=== PATIENT | male | born 1940 | race Caucasian/White ===

== ENCOUNTER → 2016-04-03 | Outpatient (CLI) | payer OTHER ==
[~2016-04-03] MED LIST: ASPI1TAB PO; ATOR40TA PO; CARV6.25 PO; DEPA1TAB3 PO; ESCI10TA2 PO; NITR4TASL SL; PLAV75TA PO; TAMS0.4C2 PO
[2016-04-03 07:10] LABS: BASO # 0.1 K/mm3 (0.0-0.2); BASO % 0.9 % (0.0-1.0); EOS # 0.3 K/mm3 (0.0-0.50); EOS % 3.5 % (0.0-3.0); LARGE UNSTAINED CELL # 0.2 K/mm3 (0.0-0.4); LARGE UNSTAINED CELL % 2.6 % (0.0-4.0); LYMPH # 2.8 K/mm3 (1.5-4.5); LYMPH % 30.5 % (24.0-44.0); MEAN CORPUSCULAR HEMOGLOBIN 30.1 pg (27.0-33.0); MEAN CORPUSCULAR VOLUME 86.1 fl (80.0-96.0); MONO # 0.5 K/mm3 (0.0-0.8); MONO % 5.5 % (0.0-5.0); NEUTROPHILS # 5.2 K/mm3 (1.8-7.7); PLATELET COUNT, AUTOMATED 189 k/mm3 (150-450); RED CELL DISTRIBUTION WIDTH 12.4 % (11.5-14.5); WHITE BLOOD COUNT 9.1 K/mm3 (4.0-10.0)
[2016-04-03 07:30] LABS: ALBUMIN 3.7 GM/DL (3.2-5.2); ALBUMIN/GLOBULIN RATIO 1.03 (1.00-1.93); ALKALINE PHOSPHATASE 122 U/L (45-117); ALT/SGPT 38 U/L (12-78); ANION GAP 8 MEQ/L (8-16); AST/SGOT 21 U/L (15-37); BILIRUBIN,TOTAL 0.4 MG/DL (0.2-1.0); BLOOD UREA NITROGEN 16 MG/DL (7-18); CALCIUM LEVEL 9.2 MG/DL (8.8-10.2); CARBON DIOXIDE LEVEL 29 MEQ/L (21-32); CHLORIDE LEVEL 103 MEQ/L (98-107); CHOLESTEROL LEVEL 117 MG/DL (<200); CREATININE FOR GFR 0.92 MG/DL (0.70-1.30); GLOMERULAR FILTRATION RATE > 60.0 (>42); GLUCOSE, FASTING 102 MG/DL (83-110); POTASSIUM SERUM 4.4 MEQ/L (3.5-5.1); SODIUM LEVEL 140 MEQ/L (136-145); TOTAL PROTEIN 7.3 GM/DL (6.4-8.2); TRIGLYCERIDES LEVEL 140 MG/DL (<150)
== END ==
LOC: M LAB 06:22
PROVIDERS: ATTEND Family Medicine
DX: R73.02 Impaired glucose tolerance (oral) (principal); I25.2 Old myocardial infarction

== ENCOUNTER → 2016-07-03 | Outpatient (REF) | payer OTHER ==
[~2016-07-03] MED LIST changes: -PLAV75TA PO; +PLAV75TA38 PO
== END ==
LOC: M LABNEURO 13:01
PROVIDERS: ATTEND Psychiatry & Neurology Neurology
DX: G43.909 Migraine, unspecified, not intractable, without status migrainosus (principal); Z51.81 Encounter for therapeutic drug level monitoring; Z79.899 Other long term (current) drug therapy

== ENCOUNTER → 2016-07-05 | Outpatient (REF) | payer OTHER | LOC: M LABNEURO 13:15 | PROVIDERS: ATTEND Urology | DX: N40.1 Benign prostatic hyperplasia with lower urinary tract symptoms (principal); N52.9 Male erectile dysfunction, unspecified ==

== ENCOUNTER → 2016-07-24 | Outpatient (REF) | payer OTHER ==
[2016-07-24 14:31] LABS: ANION GAP 6 MEQ/L (8-16); BLOOD UREA NITROGEN 16 MG/DL (7-18); CALCIUM LEVEL 8.7 MG/DL (8.8-10.2); CARBON DIOXIDE LEVEL 30 MEQ/L (21-32); CHLORIDE LEVEL 107 MEQ/L (98-107); CHOLESTEROL LEVEL 115 MG/DL (<200); CREATININE FOR GFR 0.93 MG/DL (0.70-1.30); GLOMERULAR FILTRATION RATE > 60.0 (>42); GLUCOSE, FASTING 112 MG/DL (83-110); POTASSIUM SERUM 4.6 MEQ/L (3.5-5.1); SODIUM LEVEL 143 MEQ/L (136-145); TRIGLYCERIDES LEVEL 122 MG/DL (<150)
== END ==
LOC: M LABNEURO 12:56
PROVIDERS: ATTEND Internal Medicine Cardiovascular Disease
DX: E78.5 Hyperlipidemia, unspecified (principal); I51.7 Cardiomegaly; I25.10 Atherosclerotic heart disease of native coronary artery without angina pectoris
CPT/HCPCS: 36415; 80048; 80061; G0463

== ENCOUNTER → 2016-08-16 | Outpatient (CLI) | payer OTHER | LOC: M SMT 08:22 | PROVIDERS: ATTEND Urology | DX: E29.1 Testicular hypofunction (principal) ==

== ENCOUNTER → 2016-10-16 | Outpatient (REF) | payer OTHER ==
[~2016-10-16] MED LIST changes: -ATOR40TA PO; +ATOR40TA75 PO; +PLAV1TAB2 PO; -PLAV75TA38 PO
[2016-10-16 11:56] LABS: ANION GAP 6 MEQ/L (8-16); BLOOD UREA NITROGEN 11 MG/DL (7-18); CALCIUM LEVEL 9.2 MG/DL (8.8-10.2); CARBON DIOXIDE LEVEL 31 MEQ/L (21-32); CHLORIDE LEVEL 106 MEQ/L (98-107); CREATININE FOR GFR 0.84 MG/DL (0.70-1.30); GLOMERULAR FILTRATION RATE > 60.0 (>42); GLUCOSE, FASTING 117 MG/DL (83-110); POTASSIUM SERUM 4.7 MEQ/L (3.5-5.1); SODIUM LEVEL 143 MEQ/L (136-145)
== END ==
LOC: M SFHCLERA 10:09
PROVIDERS: ATTEND Family Medicine
DX: Z95.5 Presence of coronary angioplasty implant and graft (principal); I25.2 Old myocardial infarction; R73.02 Impaired glucose tolerance (oral); I10 Essential (primary) hypertension; R06.83 Snoring; Z79.82 Long term (current) use of aspirin; Z79.84 Long term (current) use of oral hypoglycemic drugs; Z79.899 Other long term (current) drug therapy
CPT/HCPCS: 80048; 83036; G0463

== ENCOUNTER → 2016-11-29 | Outpatient (CLI) | payer OTHER ==
[2016-11-29 13:45] LABS: ALBUMIN 3.4 GM/DL (3.2-5.2); ALKALINE PHOSPHATASE 101 U/L (45-117); ALT/SGPT 30 U/L (12-78); ANION GAP 11 MEQ/L (8-16); AST/SGOT 13 U/L (15-37); BILIRUBIN,TOTAL 0.3 MG/DL (0.2-1.0); BLOOD UREA NITROGEN 15 MG/DL (7-18); CALCIUM LEVEL 8.8 MG/DL (8.8-10.2); CARBON DIOXIDE LEVEL 26 MEQ/L (21-32); CHLORIDE LEVEL 106 MEQ/L (98-107); CREATININE FOR GFR 0.76 MG/DL (0.70-1.30); GLOMERULAR FILTRATION RATE > 60.0 (>42); GLUCOSE, FASTING 116 MG/DL (83-110); POTASSIUM SERUM 4.5 MEQ/L (3.5-5.1); SODIUM LEVEL 143 MEQ/L (136-145); TOTAL PROTEIN 6.8 GM/DL (6.4-8.2)
[2016-11-29 13:46] LABS: BASO # 0.1 K/mm3 (0.0-0.2); EOS # 0.4 K/mm3 (0.0-0.50); EOS % 4.4 % (0.0-3.0); LARGE UNSTAINED CELL # 0.1 K/mm3 (0.0-0.4); LARGE UNSTAINED CELL % 1.6 % (0.0-4.0); LYMPH # 1.9 K/mm3 (1.5-4.5); LYMPH % 23.7 % (24.0-44.0); MEAN CORPUSCULAR HEMOGLOBIN 30.7 pg (27.0-33.0); MEAN CORPUSCULAR HGB CONC 35.4 g/dl (32.0-36.5); MEAN CORPUSCULAR VOLUME 86.9 fl (80.0-96.0); MONO # 0.5 K/mm3 (0.0-0.8); MONO % 6.7 % (0.0-5.0); NEUTROPHILS # 5.1 K/mm3 (1.8-7.7); NEUTROPHILS % 62.5 % (36.0-66.0); PLATELET COUNT, AUTOMATED 189 k/mm3 (150-450); RED CELL DISTRIBUTION WIDTH 12.7 % (11.5-14.5); WHITE BLOOD COUNT 8.1 K/mm3 (4.0-10.0)
== END ==
LOC: M SMT 09:14
PROVIDERS: ATTEND Psychiatry & Neurology Neurology
DX: G43.909 Migraine, unspecified, not intractable, without status migrainosus (principal); N52.9 Male erectile dysfunction, unspecified

== ENCOUNTER → 2016-11-29 | Outpatient (CLI) | payer OTHER | LOC: M SMT 09:11 | PROVIDERS: ATTEND Urology | DX: N52.9 Male erectile dysfunction, unspecified (principal) ==

== ENCOUNTER → 2016-12-22 | Outpatient (CLI) | payer OTHER ==
--- NOTE | 2016-12-22 09:53 | REP ---
MR BRAIN WITHOUT CONTRAST: HISTORY: TIAs. COMPARISON: 08/27/2015 Areas of increased signal intensity on T2-weighted images are present in the periventricular and subcortical white matter. This represents small vessel ischemic disease. There is no intraparenchymal hemorrhage, infarct mass, or midline shift. The ventricular system and cortical sulci are dilated consistent with minimal volume loss. There is no extracerebral collection. Mucosal thickening is present in the maxillary sinuses. IMPRESSION: 1. Small vessel ischemic disease. 2. Minimal volume loss. Signed by Shemar Feng MD 12/22/2016 10:34 A
== END ==
LOC: M PLARAD 07:33
PROVIDERS: ATTEND Psychiatry & Neurology Neurology
DX: G45.9 Transient cerebral ischemic attack, unspecified (principal); I73.9 Peripheral vascular disease, unspecified; M62.81 Muscle weakness (generalized)

== ENCOUNTER → 2017-01-16 | Outpatient (REF) | payer OTHER | LOC: M SFHCLERA 09:31 | PROVIDERS: ATTEND Family Medicine | DX: E11.8 Type 2 diabetes mellitus with unspecified complications (principal); Z23 Encounter for immunization | CPT/HCPCS: 83036; 90662; G0008; G0463 ==

== ENCOUNTER → 2017-06-08 | Outpatient (CLI) | payer MEDICARE ==
[2017-06-12 00:07] LABS: PSA TOTAL 1.2 ng/mL (0.0-4.0); TESTOSTERONE FREE (DIRECT) 4.3 pg/mL (6.6-18.1)
== END ==
LOC: M SMT 14:40
DX: E29.1 Testicular hypofunction (principal); N40.1 Benign prostatic hyperplasia with lower urinary tract symptoms
CPT/HCPCS: 84403

== ENCOUNTER → 2017-07-06 | Outpatient (REF) | payer MEDICARE ==
[2017-07-06 12:53] LABS: ALBUMIN 3.6 GM/DL (3.2-5.2); ALBUMIN/GLOBULIN RATIO 1.03 (1.00-1.93); ALKALINE PHOSPHATASE 95 U/L (45-117); ALT/SGPT 29 U/L (12-78); ANION GAP 9 MEQ/L (8-16); AST/SGOT 16 U/L (7-37); BILIRUBIN,TOTAL 0.4 MG/DL (0.2-1.0); BLOOD UREA NITROGEN 20 MG/DL (7-18); CALCIUM LEVEL 8.7 MG/DL (8.8-10.2); CARBON DIOXIDE LEVEL 24 MEQ/L (21-32); CHLORIDE LEVEL 108 MEQ/L (98-107); CREATININE FOR GFR 0.96 MG/DL (0.70-1.30); GLOMERULAR FILTRATION RATE > 60.0 (>42); GLUCOSE, FASTING 124 MG/DL (70-100); POTASSIUM SERUM 4.7 MEQ/L (3.5-5.1); SODIUM LEVEL 141 MEQ/L (136-145); TOTAL PROTEIN 7.1 GM/DL (6.4-8.2)
[2017-07-06 13:20] LABS: BASO # 0.1 10^3/uL (0.0-0.2); EOS # 0.4 10^3/uL (0.0-0.50); EOS % 3.8 % (0.0-3.0); HEMATOCRIT 44.9 % (42.0-52.0); IMMATURE GRANULOCYTE % 0.3 % (0-3.0); LYMPH # 2.2 10^3/uL (1.5-4.5); LYMPH % 24.2 % (24.0-44.0); MEAN CORPUSCULAR HEMOGLOBIN 29.4 pg (27.0-33.0); MEAN CORPUSCULAR HGB CONC 33.4 g/dl (32.0-36.5); MONO # 0.7 10^3/uL (0.0-0.8); MONO % 7.6 % (0.0-5.0); NEUTROPHILS # 5.8 10^3/uL (1.8-7.7); NEUTROPHILS % 63.1 % (36.0-66.0); PLATELET COUNT, AUTOMATED 227 10^3/uL (150-450); RED CELL DISTRIBUTION WIDTH 12.9 % (11.5-14.5); WHITE BLOOD COUNT 9.2 10^3/uL (4.0-10.0)
== END ==
LOC: M LABNEURO 10:17
DX: G43.909 Migraine, unspecified, not intractable, without status migrainosus (principal)
CPT/HCPCS: 80164

== ENCOUNTER → 2017-08-06 | Outpatient (REF) | payer MEDICARE ==
[2017-08-06 12:42] LABS: ALKALINE PHOSPHATASE 107 U/L (45-117); ALT/SGPT 22 U/L (12-78); ANION GAP 8 MEQ/L (8-16); AST/SGOT 15 U/L (7-37); BILIRUBIN,TOTAL 0.4 MG/DL (0.2-1.0); BLOOD UREA NITROGEN 9 MG/DL (7-18); CALCIUM LEVEL 8.8 MG/DL (8.8-10.2); CARBON DIOXIDE LEVEL 28 MEQ/L (21-32); CHLORIDE LEVEL 107 MEQ/L (98-107); CHOLESTEROL LEVEL 119 MG/DL (<200); CREATININE FOR GFR 0.82 MG/DL (0.70-1.30); GLOMERULAR FILTRATION RATE > 60.0 (>42); GLUCOSE, FASTING 122 MG/DL (70-100); HDL CHOLESTEROL 44 MG/DL (>40); LDL CHOLESTEROL 54.2 MG/DL (<100); POTASSIUM SERUM 4.6 MEQ/L (3.5-5.1); SODIUM LEVEL 143 MEQ/L (136-145); TRIGLYCERIDES LEVEL 104 MG/DL (<150)
[2017-08-06 12:43] LABS: ALBUMIN 3.4 GM/DL (3.2-5.2); ALBUMIN/GLOBULIN RATIO 0.89 (1.00-1.93); CHOLESTEROL RISK RATIO 2.704 (<5); NON-HDL-C 75 MG/DL; TOTAL PROTEIN 7.2 GM/DL (6.4-8.2)
[2017-08-06 13:42] LABS: ESTIMATED AVERAGE GLUCOSE 143 MG/DL (60-110); HEMOGLOBIN A1c 6.6 %
== END ==
LOC: M SFHCLERA 08:56
DX: E11.8 Type 2 diabetes mellitus with unspecified complications (principal)
CPT/HCPCS: 80053

== ENCOUNTER → 2017-08-08 | Outpatient (REF) | payer MEDICARE ==
[2017-08-08 19:11] LABS: CREATININE, URINE 36.2 MG/DL; MALB URINE SIEMENS < 5.0 MG/L; MAU/CREAT RATIO 13.8 MCG/MG (0.0-30.0)
== END ==
LOC: M SFHCLERA 13:40
DX: E11.8 Type 2 diabetes mellitus with unspecified complications (principal)
CPT/HCPCS: 82043

== ENCOUNTER → 2017-08-17 | Outpatient (CLI) | payer MEDICARE | LOC: M PLARAD 08:03 | DX: M54.40 Lumbago with sciatica, unspecified side (principal) | CPT/HCPCS: 72148 ==

== ENCOUNTER 2017-09-11 07:20 | Outpatient (RCR) | payer MEDICARE | END 2017-09-22 | LOC: M PT 07:20 | DX: Z51.89 Encounter for other specified aftercare (principal); M54.41 Lumbago with sciatica, right side | CPT/HCPCS: 97110 ==

== ENCOUNTER 2017-09-25 07:46 | Outpatient (RCR) | payer MEDICARE | END 2017-10-23 | LOC: M PT 07:46 | DX: Z51.89 Encounter for other specified aftercare (principal); M54.40 Lumbago with sciatica, unspecified side; M48.061 Spinal stenosis, lumbar region without neurogenic claudication; M43.16 Spondylolisthesis, lumbar region; M99.83 Other biomechanical lesions of lumbar region; M51.36 Other intervertebral disc degeneration, lumbar region | CPT/HCPCS: 97110 ==

== ENCOUNTER → 2017-09-25 | Outpatient (CLI) | payer MEDICARE ==
[2017-09-28 00:09] LABS: TESTOSTERONE FREE (DIRECT) 9.2 pg/mL (6.6-18.1)
== END ==
LOC: M LAB 08:40
DX: E29.1 Testicular hypofunction (principal)
CPT/HCPCS: 84403

== ENCOUNTER 2017-10-26 07:54 | Outpatient (RCR) | payer MEDICARE | END 2017-11-23 | LOC: M PT 07:54 | DX: Z51.89 Encounter for other specified aftercare (principal); M54.41 Lumbago with sciatica, right side; M48.061 Spinal stenosis, lumbar region without neurogenic claudication; M43.16 Spondylolisthesis, lumbar region; M99.83 Other biomechanical lesions of lumbar region; M51.36 Other intervertebral disc degeneration, lumbar region | CPT/HCPCS: 97110 ==

== ENCOUNTER 2017-11-28 08:38 | Outpatient (RCR) | payer MEDICARE | END 2017-12-23 | LOC: M PT 08:38 | DX: Z47.89 Encounter for other orthopedic aftercare (principal); M54.41 Lumbago with sciatica, right side; M48.061 Spinal stenosis, lumbar region without neurogenic claudication; M43.16 Spondylolisthesis, lumbar region; M99.83 Other biomechanical lesions of lumbar region; M51.36 Other intervertebral disc degeneration, lumbar region | CPT/HCPCS: 97110 ==

== ENCOUNTER 2017-12-25 14:21 | Outpatient (RCR) | payer MEDICARE | END 2018-01-23 | LOC: M PT 14:21 | DX: Z47.89 Encounter for other orthopedic aftercare (principal); M54.41 Lumbago with sciatica, right side; M48.061 Spinal stenosis, lumbar region without neurogenic claudication; M43.16 Spondylolisthesis, lumbar region; M51.36 Other intervertebral disc degeneration, lumbar region; M99.83 Other biomechanical lesions of lumbar region | CPT/HCPCS: 97110 ==

== ENCOUNTER 2018-01-24 09:16 | Outpatient (RCR) | payer MEDICARE | END 2018-02-22 | LOC: M PT 01-31 14:57 | DX: M54.9 Dorsalgia, unspecified (principal) | CPT/HCPCS: 97110 ==

== ENCOUNTER 2018-02-12 12:23 | Outpatient (REF) | payer MEDICARE ==
[2018-03-07 14:05] LABS: ESTIMATED AVERAGE GLUCOSE 166 MG/DL (60-110); HEMOGLOBIN A1c 7.4 %
== END 2018-03-07 ==
LOC: M SFHCLERA 12:23 → M LABNEURO 03-07 10:22
DX: E11.8 Type 2 diabetes mellitus with unspecified complications (principal); Z53.8 Procedure and treatment not carried out for other reasons
CPT/HCPCS: 83036

== ENCOUNTER 2018-03-14 10:49 | Outpatient (RCR) | payer MEDICARE | END 2018-03-25 | LOC: M PT 10:49 | PROVIDERS: ATTEND Physical Medicine & Rehabilitation | DX: M54.9 Dorsalgia, unspecified (principal) ==

== ENCOUNTER → 2018-03-22 | Outpatient (CLI) | payer MEDICARE | LOC: M PLARAD 08:07 | PROVIDERS: ATTEND Psychiatry & Neurology Neurology | DX: G43.401 Hemiplegic migraine, not intractable, with status migrainosus (principal); I63.9 Cerebral infarction, unspecified; Z53.9 Procedure and treatment not carried out, unspecified reason ==

== ENCOUNTER → 2018-04-05 | Outpatient (REF) | payer MEDICARE ==
[2018-04-05 13:39] LABS: HEMATOCRIT 42.5 % (42.0-52.0); HEMOGLOBIN 14.5 g/dl (13.5-17.5); MEAN CORPUSCULAR HEMOGLOBIN 29.7 pg (27.0-33.0); MEAN CORPUSCULAR HGB CONC 34.1 g/dl (32.0-36.5); MEAN CORPUSCULAR VOLUME 86.9 fl (80.0-96.0); PLATELET COUNT, AUTOMATED 185 10^3/uL (150-450); RED BLOOD COUNT 4.89 10^6/uL (4.30-6.10); WHITE BLOOD COUNT 8.9 10^3/uL (4.0-10.0)
[2018-04-05 13:42] LABS: ALBUMIN 3.1 GM/DL (3.2-5.2); ALT/SGPT 17 U/L (12-78); BILIRUBIN,TOTAL 0.4 MG/DL (0.2-1.0); BLOOD UREA NITROGEN 17 MG/DL (7-18); CALCIUM LEVEL 8.3 MG/DL (8.8-10.2); CARBON DIOXIDE LEVEL 23 MEQ/L (21-32); CHLORIDE LEVEL 105 MEQ/L (98-107); CREATININE FOR GFR 0.94 MG/DL (0.70-1.30); GLOMERULAR FILTRATION RATE > 60.0 (>42); GLUCOSE, FASTING 188 MG/DL (70-100); POTASSIUM SERUM 4.4 MEQ/L (3.5-5.1); SODIUM LEVEL 140 MEQ/L (136-145); TOTAL PROTEIN 6.3 GM/DL (6.4-8.2)
[2018-04-07 00:06] LABS: TESTOSTERONE FREE (DIRECT) 6.3 pg/mL (6.6-18.1)
== END ==
LOC: M LABNEURO 08:55
PROVIDERS: ATTEND Nurse Practitioner Women's Health
DX: E29.1 Testicular hypofunction (principal); Z12.5 Encounter for screening for malignant neoplasm of prostate
CPT/HCPCS: 36415; 80053; 84402; 84403; 85027; G0103

== ENCOUNTER → 2018-04-11 | Outpatient (CLI) | payer MEDICARE ==
--- NOTE | 2018-04-12 13:20 | DEXA ---
AP SPINE L1 - L4 1.908 5.8 6.1 LT FEMUR TOTAL 1.236 1.8 1.9 LT NECK 1.094 0.4 1.6 RT FEMUR TOTAL 1.194 1.5 1.6 RT NECK 1.095 0.4 1.6 TOTAL BODY TOTAL OTHER COMMENTS: Normal bone densitometry of the spine and hips. FOLLOW-UP: Recommendation for the next bone density exam: 2 years. PRUDENCIO
== END ==
LOC: M WHC 09:10
PROVIDERS: ATTEND Physician Assistant
DX: M51.36 Other intervertebral disc degeneration, lumbar region (principal); M81.0 Age-related osteoporosis without current pathological fracture; M99.83 Other biomechanical lesions of lumbar region; M43.16 Spondylolisthesis, lumbar region; M48.061 Spinal stenosis, lumbar region without neurogenic claudication; M54.16 Radiculopathy, lumbar region

== ENCOUNTER 2018-04-17 14:30 | Outpatient (RCR) | payer MEDICARE | END 2018-04-25 | LOC: M PT 14:30 | PROVIDERS: ATTEND Physical Medicine & Rehabilitation | DX: M54.5 Low back pain (principal); M48.07 Spinal stenosis, lumbosacral region ==

== ENCOUNTER → 2018-05-01 | Outpatient (CLI) | payer MEDICARE ==
--- NOTE | 2018-05-01 11:18 | REP ---
BILATERAL KNEES, TEN VIEWS: HISTORY: Knee pain. RIGHT KNEE: There is no acute fracture or dislocation. There is marked narrowing of the medial knee joint space and minimal narrowing of the lateral knee joint space and patellofemoral joint space. Osteophytes are present on the tibia and patella. IMPRESSION: Degenerative change as described above. LEFT KNEE: There is marked narrowing of the medial knee joint space and minimal narrowing of the lateral knee joint space and patellofemoral joint space. Osteophytes are present on the tibia and patella. IMPRESSION: Degenerative change as described above. Electronically Signed by Shemar Feng MD 05/01/2018 11:19 A
== END ==
LOC: M RAD 09:13
PROVIDERS: ATTEND Nurse Practitioner Family
DX: M25.561 Pain in right knee (principal)

== ENCOUNTER 2018-05-16 08:00 | Outpatient (RCR) | payer MEDICARE | END 2018-05-23 | LOC: M PT 08:00 | PROVIDERS: ATTEND Physical Medicine & Rehabilitation | DX: M17.0 Bilateral primary osteoarthritis of knee (principal); M54.5 Low back pain ==

== ENCOUNTER → 2018-07-17 | Outpatient (REF) | payer MEDICARE ==
[~2018-07-17] MED LIST changes: -ASPI1TAB PO; +ASPI81TA26 PO
[2018-07-17 12:09] LABS: ALBUMIN 3.3 GM/DL (3.2-5.2); ALT/SGPT 31 U/L (12-78); BILIRUBIN,TOTAL 0.5 MG/DL (0.2-1.0); BLOOD UREA NITROGEN 18 MG/DL (7-18); CALCIUM LEVEL 8.6 MG/DL (8.8-10.2); CARBON DIOXIDE LEVEL 26 MEQ/L (21-32); CHLORIDE LEVEL 105 MEQ/L (98-107); CHOLESTEROL LEVEL 115 MG/DL (<200); CREATININE FOR GFR 0.79 MG/DL (0.70-1.30); GLOMERULAR FILTRATION RATE > 60.0 (>42); GLUCOSE, FASTING 120 MG/DL (70-100); HDL CHOLESTEROL 46 MG/DL (>40); LDL CHOLESTEROL 42 MG/DL (<100); NON-HDL-C 69 MG/DL; POTASSIUM SERUM 4.7 MEQ/L (3.5-5.1); SODIUM LEVEL 141 MEQ/L (136-145); TOTAL PROTEIN 6.8 GM/DL (6.4-8.2); TRIGLYCERIDES LEVEL 133 MG/DL (<150)
[2018-07-17 12:33] LABS: HEMOGLOBIN A1c 6.9 %
== END ==
LOC: M SFHCLERA 08:55
PROVIDERS: ATTEND Family Medicine
DX: E11.8 Type 2 diabetes mellitus with unspecified complications (principal)

== ENCOUNTER → 2018-07-17 | Outpatient (CLI) | payer MEDICARE ==
[2018-07-17 11:23] LABS: BASO # 0.1 10^3/uL (0.0-0.2); BASO % 0.8 % (0.0-1.0); EOS # 0.2 10^3/uL (0.0-0.50); EOS % 3.2 % (0.0-3.0); HEMATOCRIT 43.8 % (42.0-52.0); HEMOGLOBIN 14.6 g/dl (13.5-17.5); LYMPH # 1.9 10^3/uL (1.5-4.5); LYMPH % 26.1 % (24.0-44.0); MEAN CORPUSCULAR HEMOGLOBIN 29.5 pg (27.0-33.0); MEAN CORPUSCULAR HGB CONC 33.3 g/dl (32.0-36.5); MEAN CORPUSCULAR VOLUME 88.5 fl (80.0-96.0); MONO # 0.6 10^3/uL (0.0-0.8); MONO % 8.4 % (0.0-5.0); NEUTROPHILS # 4.5 10^3/uL (1.8-7.7); NEUTROPHILS % 61.4 % (36.0-66.0); PLATELET COUNT, AUTOMATED 194 10^3/uL (150-450); RED BLOOD COUNT 4.95 10^6/uL (4.30-6.10); WHITE BLOOD COUNT 7.4 10^3/uL (4.0-10.0)
[2018-07-17 12:21] LABS: ALBUMIN 3.3 GM/DL (3.2-5.2); ALT/SGPT 30 U/L (12-78); BILIRUBIN,TOTAL 0.4 MG/DL (0.2-1.0); BLOOD UREA NITROGEN 17 MG/DL (7-18); CALCIUM LEVEL 8.6 MG/DL (8.8-10.2); CARBON DIOXIDE LEVEL 27 MEQ/L (21-32); CHLORIDE LEVEL 105 MEQ/L (98-107); CREATININE FOR GFR 0.78 MG/DL (0.70-1.30); GLOMERULAR FILTRATION RATE > 60.0 (>42); GLUCOSE, FASTING 117 MG/DL (70-100); POTASSIUM SERUM 4.8 MEQ/L (3.5-5.1); SODIUM LEVEL 140 MEQ/L (136-145); TOTAL PROTEIN 6.8 GM/DL (6.4-8.2); VALPROIC ACID (DEPAKOTE) 48.1 UG/ML (50.0-100.0)
== END ==
LOC: M LRY 09:17
PROVIDERS: ATTEND Psychiatry & Neurology Neurology
DX: E11.8 Type 2 diabetes mellitus with unspecified complications (principal); R51 Headache; Z51.81 Encounter for therapeutic drug level monitoring; Z79.899 Other long term (current) drug therapy
CPT/HCPCS: 36415; 80053; 80061; 80164; 83036; 85025; G0463

== ENCOUNTER → 2018-10-04 | Outpatient (REF) | payer MEDICARE ==
[2018-10-04 14:05] LABS: HEMATOCRIT 43.1 % (42.0-52.0); HEMOGLOBIN 14.2 g/dl (13.5-17.5)
[2018-10-04 14:17] LABS: ALBUMIN 3.3 GM/DL (3.2-5.2); BILIRUBIN,DIRECT 0.1 MG/DL (0.0-0.2); BILIRUBIN,TOTAL 0.5 MG/DL (0.2-1.0); TOTAL PROTEIN 6.7 GM/DL (6.4-8.2)
== END ==
LOC: M LABNEURO 10:19
PROVIDERS: ATTEND Urology
DX: E29.1 Testicular hypofunction (principal); Z12.5 Encounter for screening for malignant neoplasm of prostate
CPT/HCPCS: 36415; 80076; 84403; 85014; 85018; G0103

== ENCOUNTER → 2018-10-28 | Outpatient (CLI) | payer MEDICARE ==
--- NOTE | 2018-10-29 06:57 | REP ---
BILATERAL LOWER EXTREMITY DUPLEX DOPPLER ARTERIAL ULTRASOUND: Real-time ultrasound evaluation and duplex Doppler interrogation of bilateral lower extremity arterial systems is performed. I do not see evidence of hemodynamically significant stenosis of bilateral lower extremity arterial systems. Moderate calcific plaquing is seen diffusely bilaterally. The study is somewhat limited due to extensive arterial calcifications which limits evaluation of arterial lumen. There are diffusely biphasic wave forms bilaterally. RIGHT PSV LEFT PSV Common femoral artery 127 cm/s 114 cm/s Profunda 104 95 Proximal SFA 59 90 Mid SFA 98 102 Distal SFA 55 79 Popliteal 55 97 Proximal KARMA 34 82 Tibioperoneal trunk 62 85 Proximal CAR PARKER 18 60 Distal CAR PARKER 33 98 Distal KARMA 62 109 IMPRESSION: Significant moderate degree of calcific plaque diffusely bilaterally without definite significant stenosis. Electronically Signed by Lencho Bellamy MD 10/29/2018 07:12 P
== END ==
LOC: M RAD 08:31
PROVIDERS: ATTEND Surgery Vascular Surgery
DX: I70.213 Atherosclerosis of native arteries of extremities with intermittent claudication, bilateral legs (principal)

== ENCOUNTER → 2018-12-23 | Outpatient (CLI) | payer MEDICARE | LOC: M SMT 09:51 | PROVIDERS: ATTEND Urology | DX: E29.1 Testicular hypofunction (principal) ==

== ENCOUNTER → 2019-01-06 | Outpatient (CLI) | payer MEDICARE ==
[2019-01-06 18:13] LABS: BASO # 0.1 10^3/uL (0.0-0.2); BASO % 0.8 % (0.0-1.0); EOS # 0.3 10^3/uL (0.0-0.5); EOS % 3.5 % (0.0-3.0); HEMATOCRIT 45.3 % (42.0-52.0); HEMOGLOBIN 14.7 g/dl (13.5-17.5); LYMPH # 2.1 10^3/uL (1.5-5.0); LYMPH % 25.1 % (24.0-44.0); MEAN CORPUSCULAR HEMOGLOBIN 29.8 pg (27.0-33.0); MEAN CORPUSCULAR HGB CONC 32.5 g/dl (32.0-36.5); MEAN CORPUSCULAR VOLUME 91.7 fl (80.0-96.0); MONO # 0.8 10^3/uL (0.0-0.8); MONO % 9.6 % (0.0-5.0); NEUTROPHILS # 5.2 10^3/uL (1.5-8.5); NEUTROPHILS % 60.8 % (36.0-66.0); PLATELET COUNT, AUTOMATED 194 10^3/uL (150-450); RED BLOOD COUNT 4.94 10^6/uL (4.30-6.10); WHITE BLOOD COUNT 8.5 10^3/uL (4.0-10.0)
[2019-01-06 18:44] LABS: ALBUMIN 3.4 GM/DL (3.2-5.2); ALT/SGPT 22 U/L (12-78); BILIRUBIN,TOTAL 0.4 MG/DL (0.2-1.0); BLOOD UREA NITROGEN 14 MG/DL (7-18); CALCIUM LEVEL 8.8 MG/DL (8.8-10.2); CARBON DIOXIDE LEVEL 30 MEQ/L (21-32); CHLORIDE LEVEL 105 MEQ/L (98-107); GLOMERULAR FILTRATION RATE > 60.0 (>42); GLUCOSE, FASTING 99 MG/DL (70-100); POTASSIUM SERUM 5.1 MEQ/L (3.5-5.1); SODIUM LEVEL 139 MEQ/L (136-145); TOTAL PROTEIN 6.7 GM/DL (6.4-8.2)
== END ==
LOC: M SMT 13:00
PROVIDERS: ATTEND Psychiatry & Neurology Neurology
DX: G43.909 Migraine, unspecified, not intractable, without status migrainosus (principal)

== ENCOUNTER → 2019-01-09 | Outpatient (REF) | payer MEDICARE ==
[2019-01-09 12:07] LABS: HEMATOCRIT 47.1 % (42.0-52.0); HEMOGLOBIN 15.2 g/dl (13.5-17.5); MEAN CORPUSCULAR HEMOGLOBIN 29.6 pg (27.0-33.0); MEAN CORPUSCULAR HGB CONC 32.3 g/dl (32.0-36.5); MEAN CORPUSCULAR VOLUME 91.6 fl (80.0-96.0); PLATELET COUNT, AUTOMATED 205 10^3/uL (150-450); RED BLOOD COUNT 5.14 10^6/uL (4.30-6.10)
[2019-01-09 12:46] LABS: ALBUMIN 3.5 GM/DL (3.2-5.2); ALT/SGPT 25 U/L (12-78); BILIRUBIN,TOTAL 0.4 MG/DL (0.2-1.0); BLOOD UREA NITROGEN 17 MG/DL (7-18); CALCIUM LEVEL 9.2 MG/DL (8.8-10.2); CARBON DIOXIDE LEVEL 32 MEQ/L (21-32); CHLORIDE LEVEL 107 MEQ/L (98-107); CHOLESTEROL LEVEL 128 MG/DL (<200); CREATININE FOR GFR 0.97 MG/DL (0.70-1.30); GLOMERULAR FILTRATION RATE > 60.0 (>42); GLUCOSE, FASTING 103 MG/DL (70-100); HDL CHOLESTEROL 50 MG/DL (>40); LDL CHOLESTEROL 47 MG/DL (<100); NON-HDL-C 78 MG/DL; POTASSIUM SERUM 5.3 MEQ/L (3.5-5.1); SODIUM LEVEL 143 MEQ/L (136-145); TOTAL PROTEIN 7.2 GM/DL (6.4-8.2); TRIGLYCERIDES LEVEL 156 MG/DL (<150)
== END ==
LOC: M SFHCLERA 08:42
PROVIDERS: ATTEND Family Medicine
DX: E11.8 Type 2 diabetes mellitus with unspecified complications (principal)
CPT/HCPCS: 80053; 80061; 83036; 84443; 85027; 90472; 90682; 90715; G0008; G0463

== ENCOUNTER 2019-02-17 09:20 | Outpatient (RCR) | payer MEDICARE | END 2019-02-22 | LOC: M PT 09:20 | PROVIDERS: ATTEND Physical Medicine & Rehabilitation | DX: Z47.89 Encounter for other orthopedic aftercare (principal) ==

== ENCOUNTER 2019-03-17 09:14 | Outpatient (RCR) | payer MEDICARE | END 2019-03-25 | LOC: M PT 09:14 | PROVIDERS: ATTEND Physical Medicine & Rehabilitation | DX: M25.561 Pain in right knee (principal); M25.562 Pain in left knee ==

== ENCOUNTER → 2019-03-24 | Outpatient (CLI) | payer MEDICARE ==
--- NOTE | 2019-03-24 08:57 | REP ---
CT brain: 03/24/2019. Indication: Facial numbness. Stroke. Comparison: 03/27/2018. Technique: Unenhanced axial CT images of the brain were obtained from skull base to vertex. Findings: There is no acute intracranial hemorrhage, acute cortical infarction, mass effect or hydrocephalous. Diffuse volume loss, intracranial atherosclerotic disease and patchy cerebral hemisphere white matter hypoattenuation are noted. The mastoid air cells are clear. Minimal periosteal mucosal thickening is noted within the ethmoid and maxillary sinuses. Impression: No acute intracranial process. Volume loss and sequelae of chronic microangiopathic ischemic disease. Electronically Signed by Jose Mosley DO 03/24/2019 08:48 A
== END ==
LOC: M RAD 07:31
PROVIDERS: ATTEND Physician Assistant
DX: I25.9 Chronic ischemic heart disease, unspecified (principal); R20.0 Anesthesia of skin

== ENCOUNTER → 2019-04-08 | Outpatient (REF) | payer MEDICARE ==
[2019-04-08 12:06] LABS: BLOOD UREA NITROGEN 18 MG/DL (7-18); CALCIUM LEVEL 8.9 MG/DL (8.8-10.2); CARBON DIOXIDE LEVEL 25 MEQ/L (21-32); CHLORIDE LEVEL 108 MEQ/L (98-107); CREATININE FOR GFR 0.98 MG/DL (0.70-1.30); GLOMERULAR FILTRATION RATE > 60.0 (>42); GLUCOSE, FASTING 109 MG/DL (70-100); POTASSIUM SERUM 4.8 MEQ/L (3.5-5.1); SODIUM LEVEL 140 MEQ/L (136-145)
[2019-04-08 14:42] LABS: HEMOGLOBIN A1c 6.9 %
== END ==
LOC: M SFHCLERA 08:45
PROVIDERS: ATTEND Family Medicine
DX: E11.8 Type 2 diabetes mellitus with unspecified complications (principal)
CPT/HCPCS: 80048; 83036; G0463

== ENCOUNTER 2019-05-14 10:14 | Outpatient (RCR) | payer MEDICARE | END 2019-05-24 | LOC: M PT 10:14 | PROVIDERS: ATTEND Nurse Practitioner Family | DX: M25.561 Pain in right knee (principal); M25.562 Pain in left knee; M54.5 Low back pain ==

== ENCOUNTER → 2019-08-12 | Outpatient (REF) | payer OTHER ==
[2019-08-12 13:42] LABS: BASO # 0.1 10^3/uL (0.0-0.2); EOS # 0.3 10^3/uL (0.0-0.5); HEMATOCRIT 43.2 % (42.0-52.0); LYMPH # 2.1 10^3/uL (1.5-5.0); LYMPH % 24.9 % (24.0-44.0); MEAN CORPUSCULAR HEMOGLOBIN 28.1 pg (27.0-33.0); MEAN CORPUSCULAR HGB CONC 32.4 g/dl (32.0-36.5); MEAN CORPUSCULAR VOLUME 86.7 fl (80.0-96.0); MONO # 0.7 10^3/uL (0.0-0.8); MONO % 8.9 % (0.0-5.0); NEUTROPHILS # 5.1 10^3/uL (1.5-8.5); PLATELET COUNT, AUTOMATED 208 10^3/uL (150-450); RED BLOOD COUNT 4.98 10^6/uL (4.30-6.10); WHITE BLOOD COUNT 8.3 10^3/uL (4.0-10.0)
[2019-08-12 14:17] LABS: BLOOD UREA NITROGEN 17 MG/DL (7-18); CALCIUM LEVEL 8.9 MG/DL (8.8-10.2); CARBON DIOXIDE LEVEL 28 MEQ/L (21-32); CHLORIDE LEVEL 107 MEQ/L (98-107); CHOLESTEROL LEVEL 145 MG/DL (<200); CHOLESTEROL RISK RATIO 2.788 (<5); CREATININE FOR GFR 0.92 MG/DL (0.70-1.30); GLOMERULAR FILTRATION RATE > 60.0 (>42); GLUCOSE, FASTING 113 MG/DL (70-100); HDL CHOLESTEROL 52 MG/DL (>40); LDL CHOLESTEROL 61 MG/DL (<100); NON-HDL-C 93 MG/DL; POTASSIUM SERUM 4.9 MEQ/L (3.5-5.1); SODIUM LEVEL 141 MEQ/L (136-145); TRIGLYCERIDES LEVEL 159 MG/DL (<150)
[2019-08-12 16:11] LABS: HEMOGLOBIN A1c 7.3 %
== END ==
LOC: M SFHCLERA 09:47
PROVIDERS: ATTEND Family Medicine
DX: E11.8 Type 2 diabetes mellitus with unspecified complications (principal); E78.5 Hyperlipidemia, unspecified
CPT/HCPCS: 36415; 80048; 80061; 83036; 85025; G0463

== ENCOUNTER → 2019-12-02 | Outpatient (REF) | payer OTHER ==
[2019-12-02 19:08] LABS: BASO # 0.1 10^3/uL (0.0-0.2); BASO % 1.2 % (0.0-1.0); EOS # 0.3 10^3/uL (0.0-0.5); EOS % 4.5 % (0.0-3.0); HEMATOCRIT 43.4 % (42.0-52.0); HEMOGLOBIN 14.4 g/dl (13.5-17.5); LYMPH # 1.8 10^3/uL (1.5-5.0); LYMPH % 23.9 % (24.0-44.0); MEAN CORPUSCULAR HGB CONC 33.2 g/dl (32.0-36.5); MEAN CORPUSCULAR VOLUME 87.5 fl (80.0-96.0); MONO # 0.7 10^3/uL (0.0-0.8); MONO % 8.8 % (0.0-5.0); NEUTROPHILS # 4.6 10^3/uL (1.5-8.5); NEUTROPHILS % 61.1 % (36.0-66.0); PLATELET COUNT, AUTOMATED 205 10^3/uL (150-450); RED BLOOD COUNT 4.96 10^6/uL (4.30-6.10); WHITE BLOOD COUNT 7.5 10^3/uL (4.0-10.0)
[2019-12-02 19:40] LABS: BLOOD UREA NITROGEN 18 MG/DL (7-18); CALCIUM LEVEL 8.6 MG/DL (8.8-10.2); CARBON DIOXIDE LEVEL 29 MEQ/L (21-32); CHLORIDE LEVEL 102 MEQ/L (98-107); CREATININE FOR GFR 1.02 MG/DL (0.70-1.30); GLOMERULAR FILTRATION RATE > 60.0 (>42); GLUCOSE, FASTING 156 MG/DL (70-100); SODIUM LEVEL 138 MEQ/L (136-145)
[2019-12-02 19:44] LABS: CREATININE, URINE 33.2 MG/DL; CREATININE,RANDOM URINE 33.2 MG/DL; MALB URINE SIEMENS < 5.0 MG/L
[2019-12-02 20:29] LABS: HEMOGLOBIN A1c 7.1 %
== END ==
LOC: M SFHCLERA 18:28
PROVIDERS: ATTEND Family Medicine
DX: E11.9 Type 2 diabetes mellitus without complications (principal)

== ENCOUNTER → 2019-12-02 | Outpatient (REF) | payer OTHER | LOC: M SMT 18:24 | PROVIDERS: ATTEND Urology | DX: E29.1 Testicular hypofunction (principal); Z12.5 Encounter for screening for malignant neoplasm of prostate; Z79.899 Other long term (current) drug therapy | CPT/HCPCS: 36415; 80048; 82043; 82570; 83036; 84403; 85018; 85025; G0103 ==

== ENCOUNTER → 2020-01-28 | Outpatient (CLI) | payer OTHER | LOC: M PLALAB 09:05 | PROVIDERS: ATTEND Urology | DX: E29.1 Testicular hypofunction (principal) ==

== ENCOUNTER → 2020-02-05 | Outpatient (REF) | payer OTHER | LOC: M LABSMT 11:31 | PROVIDERS: ATTEND Urology | DX: E29.1 Testicular hypofunction (principal) ==

== ENCOUNTER → 2020-03-30 | Outpatient (CLI) | payer OTHER ==
[2020-03-30 13:35] LABS: BASO # 0.1 10^3/uL (0.0-0.2); EOS # 0.3 10^3/uL (0.0-0.5); EOS % 3.4 % (0.0-3.0); HEMATOCRIT 45.2 % (42.0-52.0); HEMOGLOBIN 14.2 g/dl (13.5-17.5); LYMPH # 1.9 10^3/uL (1.5-5.0); LYMPH % 22.6 % (24.0-44.0); MEAN CORPUSCULAR HGB CONC 31.4 g/dl (32.0-36.5); MONO # 0.8 10^3/uL (0.0-0.8); MONO % 9.5 % (0.0-5.0); NEUTROPHILS # 5.2 10^3/uL (1.5-8.5); NEUTROPHILS % 63.1 % (36.0-66.0); PLATELET COUNT, AUTOMATED 215 10^3/uL (150-450); RED BLOOD COUNT 5.08 10^6/uL (4.30-6.10); WHITE BLOOD COUNT 8.2 10^3/uL (4.0-10.0)
[2020-03-30 13:59] LABS: ALBUMIN 3.5 GM/DL (3.2-5.2); ALT/SGPT 29 U/L (12-78); BILIRUBIN,TOTAL 0.3 MG/DL (0.2-1.0); BLOOD UREA NITROGEN 10 MG/DL (7-18); CALCIUM LEVEL 8.9 MG/DL (8.8-10.2); CARBON DIOXIDE LEVEL 31 MEQ/L (21-32); CHLORIDE LEVEL 104 MEQ/L (98-107); CREATININE FOR GFR 1.07 MG/DL (0.70-1.30); GLOMERULAR FILTRATION RATE > 60.0 (>42); GLUCOSE, FASTING 196 MG/DL (70-100); POTASSIUM SERUM 4.9 MEQ/L (3.5-5.1); SODIUM LEVEL 140 MEQ/L (136-145); TOTAL PROTEIN 6.6 GM/DL (6.4-8.2); VALPROIC ACID (DEPAKOTE) 56.5 UG/ML (50.0-100.0)
== END ==
LOC: M PLALAB 10:13
PROVIDERS: ATTEND Psychiatry & Neurology Neurology
DX: G43.909 Migraine, unspecified, not intractable, without status migrainosus (principal)

== ENCOUNTER → 2020-04-21 | Outpatient (CLI) | payer MEDICARE, OTHER ==
[~2020-04-21] MED LIST changes: +ESCI10TA16 PO; -ESCI10TA2 PO
[2020-04-21 13:35] LABS: BLOOD UREA NITROGEN 11 MG/DL (7-18); CREATININE FOR GFR 1.02 MG/DL (0.70-1.30); GLOMERULAR FILTRATION RATE > 60.0 (>42)
== END ==
LOC: M LAB 12:17
PROVIDERS: ATTEND Student in an Organized Health Care Education/Training Program
DX: Z01.812 Encounter for preprocedural laboratory examination (principal); E11.9 Type 2 diabetes mellitus without complications; I10 Essential (primary) hypertension

== ENCOUNTER → 2020-04-26 | Outpatient (CLI) | payer MEDICARE ==
[~2020-04-26] MED LIST changes: +ISOVUE-370 76% 100ML VIAL As Ordered ONE
--- NOTE | 2020-04-26 14:44 | REPVR ---
PROCEDURE INFORMATION: Exam: CT Lumbar Spine With Contrast Exam date and time: 04/26/2020 2:22 PM Age: 80 years old Clinical indication: Low back pain; Prior surgery; Surgery date: 6+ months; Surgery type: Lami in 2011; Additional info: Radiculopathy, post lami TECHNIQUE: Imaging protocol: Computed tomography images of the lumbar spine with intravenous contrast. Radiation optimization: All CT scans at this facility use at least one of these dose optimization techniques: automated exposure control; mA and/or kV adjustment per patient size (includes targeted exams where dose is matched to clinical indication); or iterative reconstruction. Contrast material: ISOVUE 370; Contrast volume: 100 ml; Contrast route: INTRAVENOUS (IV); COMPARISON: MRI-Spine, L.S. without con 08/17/2017 8:47 AM FINDINGS: Vertebrae: No acute fracture. Stable grade 1 retrolisthesis at L1-L2 through L3-L4 and anterolisthesis of L5 on S1. No bony destructive lesions. Discs/Spinal canal/Neural foramina: There is disc height loss with multiple vacuum disc. There is calcification in T11-T12 disc space. There are endplate degenerative changes. There are marginal osteophytes, disc bulges, and facet degenerative changes. This produces spinal stenosis at T11-T12 the L1-L2, L2-L3, and L4-L5 which is likely mild and similar to findings on prior MRI. There are postoperative changes at L3-L4 with laminectomy, paraspinal soft tissue changes, and fusion of L3 and L4 vertebral bodies. There is lumbar neural foraminal narrowing is difficult to quantitate with CT and also associated with patient's larger body habitus. Findings are likely similar to prior MRI. Sacrum/coccyx: There are bridging enthesophytes anterior sacroiliac joints. Kidneys and ureters: Bilateral visualized kidneys appear unremarkable with hydronephrosis. Vasculature: Atherosclerotic change in aorta without aneurysm. Soft tissues: Unremarkable. IMPRESSION: Degenerative and postsurgical described. Electronically signed by: Cinthia Cotton On 04/26/2020 14:44:59 PM
== END ==
LOC: M RAD 14:03
PROVIDERS: ATTEND Student in an Organized Health Care Education/Training Program
DX: M51.17 Intervertebral disc disorders with radiculopathy, lumbosacral region (principal); M96.1 Postlaminectomy syndrome, not elsewhere classified; M48.04 Spinal stenosis, thoracic region; I70.0 Atherosclerosis of aorta
CPT/HCPCS: 72132; Q9967

== ENCOUNTER 2020-05-08 20:19 | Emergency (ER) | payer MEDICARE ==
[~2020-05-08] VITALS: Ht 177.8 cm; Wt 106.8 kg
[~2020-05-08 20:19] MED LIST changes: -ISOVUE-370 76% 100ML VIAL As Ordered ONE
--- OUTSIDE RECORDS SUMMARY | 2020-05-08 20:23 | CCD ---
Author Author [facility] Organization [facility] Address Unknown Phone Unavailable Care Team Providers Care Ball Thread Machine Tender Name Role Phone Chris Krueger Unavailable PROBLEMS Type Condition ICD9-CM Code [id number] Code Onset Dates Condition S tatus SNOMED Code Notes Problem Essential hypertension with goal blood pressure less t garcia 140\/90 I10 Active 81703460 Problem Anxiety associated with depression F41.8 Activ e 081019510 Problem Erectile dysfunction, unspecified erectile dysfunction typ e N52.9 Active 922528865 Problem Subjective visual disturbance of both eyes H53.10 Active 25405957 Problem Heart valve disease I38 Active 609303 Problem Cataracts, bilateral H26.9 Active 84923905 Problem Essential (primary) hypertension I10 Active 95830592 Problem Stented coronary artery Z95.5 Active 11176434 5 Problem Low back pain radiating to right leg M54.5 Act [place] 275518681 Problem Type 2 diabetes mellitus wit h diabetic neuropathy, without long-term current use of insulin E11.40 Active 67700635 Problem Hyperlipidemia, unspecified hyperlipidemia type E7 8.5 Active 31840127 Problem Other chronic pain G89.29 Active 74656735 Problem Lumbago with sciatica, right side M54.41 Active 241338627 Problem Dyslipidemia E78.5 Active 034397079 Problem Hemiplegic migraine without status migrainosus, 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 Active 69624060 Problem Benign prostatic hyperplasia with lower urinary tract symptoms, unspecified morphology N40.1 Active 6762892451719 1 Problem Atherosclerotic heart diseas e of [place] coronary artery without angina pectoris I25.10 Active 797208198 Problem Hypogonadism in male E29.1 Active 67029731 Problem History of [place] (myocardial infarction) I25.2 Ac tive 760110819 Problem Exertional dyspnea R06.09 Active 85914416 Problem Essential hypertension I10 Active 27449203 Problem Anxiety disorder, unspecified F41.9 Active 48 290986 Problem Major depressive disorder, single episode, unspecified F32.9 Active 44484243 Problem Prostate cancer screening Z12.5 Active 822381 002 ALLERGIES No Known Allergies ENCOUNTERS from 1942 to 2020-02-11 Encounter Location Date Provider Diagnosis [facility] [address] [place] [address] Jan Chris Krueger Hypogonadism in male E29.1 IMMUNIZATIONS Vaccine Route Administration Date Status Influenza (18 yrs & older) Flublok IM Intramuscular Jan 09, 2019 Administered Influenza (18 yrs & older) Flublok IM Intramuscular Feb 12, 2018 Administered Influenza (High Dose 65 & up) IM Intramuscular Jan 16, 2017 A dministered Pneumococcal Adult 0.5mL (Pneumovax 23) IM Intramuscular Feb 12, 2018 Administered TDAP 0.5mL (Boostrix) IM Intramuscular Jan 09, 2019 Administe red Pneumococcal 0.5mL (Prevnar 13) Unknown August 27, 2015 Administered Influenza (6mo & up) Fluzone IM Intramuscular Dec 01, 2015 Ad ministered SOCIAL HISTORY Tobacco Use: Social History Observation Description Date Details (start date - stop date) Never Smoker Sex Assigned At : Social History Observation Description Sex Assigned At Unknown Education: Question Answer Notes Level of Education: College Audit Question Answer Notes Total Score: 1 Interpretation: Alcohol Education Language: Question Answer Notes Languages spoken: Russian Presybeterian: Question Answer Notes Presybeterian 23 Yarsani Sexual Hx: Question Answer Notes Had sex in the last 12 months (vaginal, oral, or anal)? No Have you ever had an STD? No Drug and Alcohol Question Answer Notes Total Score: 0 Interpretation: No problems reported BMI Care Goal Follow-Up Question Answer Notes Above Normal BMI Follow-Up Dietary management educatio n, guidance, and counseling Tobacco Use: Question Answer Notes Are you a: never smoker REASON FOR REFERRAL No Information VITAL SIGNS No information MEDICATIONS Medication SIG (Take, Route, Frequency, Duration) Notes Start Da te End Date Status Gabapentin 400 MG 1 capsule Orally Three times a day Active Tamsulosin HCl 0.4 MG 1 capsule 30 minutes after t he same meal each day Orally Once a day for 180 day(s) Active Atorvastatin Calcium 40 MG 1 tablet Orally Once a day for 90 Active Aspir-81 81 MG 1 tablet Orally Once a day Active Blood Glucose Test Strip - as directed In Vitro BID for 30 days Active Nitrostat 0.4 MG 1 tab Sublingual As needed Active Metformin HCl 850 MG 1 tablet in AM and 0.5 tab i n PM Orally as directed for 90 day(s) Active Testosterone Cypionate 200 MG/ML 1 ml Intramuscular once 1 3 Dec, 2019 Active Glucometer as directed bid for 30 day(s) Active Clopidogrel Bisulfate 75 MG 1 tablet Orally Once a day for 90 days Active Pantoprazole Sodium 20 MG 2 tablets Orally Once a day for 90 Active Escitalopram Oxalate 20 MG 1 tablet Orally Once a day for 90 day(s) Active AndroGel Pump 20.25 MG/ACT (1.62%) as directed Transde rmal to shoulder or chest 2 pumps once a day for 30 Days July, A ctive Coreg 12.5 MG 1 tab Orally bid for 90 Active Furosemide 20 MG 1 tablet Orally Once a day for 30 day(s) Aug, Active Lancets - as directed bid for 30 day(s) Active Depakote ER 500 MG 1 tab`with a 250mg = 750mg Orally before bedtime Active Celecoxib 200 MG 1 capsule Orally Once a day Active PROCEDURES No Information RESULTS Component Value Reference Range TESTOSTERONE Reviewed date:02/06/2020 13:18:46 Interpretation: Performing Lab:[facility], [facility] [address] [address] , ,[place] [address] TESTOSTERONE [phone] REASON FOR VISIT Testosterone MEDICAL (GENERAL) HISTORY Type Description Date Medical History Benign prostatic hyperplasia with lower urinary tract symptoms, unspecified morphology Medical History Exertional dyspnea Medical History Anxiety associated with depression Medical History Essential hypertension with goal blood pressure less than 140\/90 Medical History CAD s/p stenting in 2015 and again in 2017: followed by Dr. Casillas, saw June 2017, follow up planned 12/20/17 Medical History CVA without deficits, 2 weeks after CAD stenting 2015 Medical History Hypogonadism on Androgel by urology Surgical History left hand finger tips cut off Surgical History left hand angovy thumb Surgical History right hand cup replaced Surgical History both knees scoped Surgical History 2 major back surgeries 2011 Surgical History hernia repair, bilateral inguinal Surgical History Cardiac stent x 3 Surgical History angioplasty 10-28-15 Surgical History SPINAL INJECTIONS MULTIPLE TIMES 01/2018 ,03/12, 04/13 Surgical History gel in left knee 03/[address] [place] - angina with [place] 08/11/2015- Hospitalization History Mild Stroke [facility] 08/25/[address] [facility] - angioplasti 10-28-15 Hospitalization History [facility] 01/2018 Goals Section No Information Health Concerns No Information MEDICAL EQUIPMENT No Information MENTAL STATUS No Information FUNCTIONAL STATUS No Information ASSESSMENTS Encounter Date Diagnosis Assessment Notes Treatment Notes Treatm ent Clinical Notes Jan, Hypogonadism in male (ICD-10 - E29.1) PLAN OF TREATMENT Medication Medication Name Sig Start Date Stop Date Atorvastatin Calcium 40 MG 1 tablet Orally Once a day for 90 Testosterone Cypionate 200 MG/ML 1 ml Intramuscular once Dec, Insurance Providers Payer Name Payer Address Payer Phone Insured Name Patient Relati onship to Insured Coverage Start Date Coverage End Date JAHAIRA REARDON [address] [address] [facility] [phone] ALLEN MALONEY self
--- OUTSIDE RECORDS SUMMARY | 2020-05-08 20:23 | CCD | Continuity of Care Document ---
Author Author Steve NEFF M.D. Organization Unknown Address [facility] [place] [address] Phone [phone] Care Team Providers Care Valve Maker Name Role Phone Lencho Valenzuela M.D. AUTM [phone] Problems Active Problems Provider Date Migraine Laya Neff M.D. Onset: 08/31/2015 Social History Type Date Description Comments Sex Unknown Tobacco Use Start: Unknown Patient has never smoked Allergies, Adverse Reactions, Alerts Description No Known Drug Allergies Medications Active Medications SIG Qnty Indications Ordering Provide r Date Sertraline HCL 50mg Tablets 1 by mouth every day 30kashmir Neff M.D. 03/16/2020 Depakote ER 250mg Tablets ER 24HR take 1 tab by mouth at bedtime in addition to your 500mg at bedtime for a total of 750mg at bedtime. yani Neff M.D. 11/04/19 17 Diazepam 5mg Tablets Take total 3 tabs 60 minutes before MRI. 3tabs Laya Neff M.D. 2016 Divalproex Sodium ER 500mg Tablets ER 24HR take one tab at bedtime in addition to y our 250mg dose for a total of 750mg at bedtime. yani Neff M.D. 08/31/2015 Immunizations Description No Information Available Vital Signs Date Vital Result Comment 03/16/2020 11:14am Respiratory Rate 12 /min Height 70 inches 5'10" Weight 251.00 lb BMI (Body Mass Index) 36.0 kg/m2 [place] Body Weight 166 lb 12/08/2019 10:04am Respiratory Rate 12 /min Height 70 inches 5'10" Weight 251.00 lb BMI (Body Mass Index) 36.0 kg/m2 [place] Body Weight 166 lb Results Description No Information Available Procedures Description No Information Available Medical Devices Description No Information Available Encounters Type Date Location Provider Dx Diagnosis Office Visit 03/16/2020 11:00a [place] M[place]. G43.401 Hemiplegic migraine, not intractable, w status migrainosus F41.1 Generalized anxiety disorder Office Visit 12/08/2019 10:00a Main office - [place] Laya roque M.D. G43.401 Hemiplegic migraine, not intractable, w status migrainosus Assessments Date Code Description Provider 03/16/2020 G43.401 Hemiplegic migraine, not intract able, with status migrainosu Laya Neff M.D. 03/16/2020 F41.1 Generalized anxiety disorder David Neff M.D. 12/08/2019 G43.401 Hemiplegic migraine, not intract able, with status migrainosu Laya Neff M.D. Plan of Treatment No Information Available Functional Status Description No Information Available Mental Status Description No Information Available Referrals Description No Information Available
--- OUTSIDE RECORDS SUMMARY | 2020-05-08 20:23 | CCD ---
Author Author [facility] Organization [facility] Address Unknown Phone Unavailable Care Team Providers Care Mobile Nurse Name Role Phone Clotilde Saul Unavailable PROBLEMS Type Condition ICD9-CM Code [id number] Code Onset Dates Condition S tatus SNOMED Code Notes Problem Essential hypertension with goal blood pressure less t garcia 140\\/90 I10 Active 91736122 Problem Anxiety associated with depression F41.8 Activ e 428978870 Problem Erectile dysfunction, unspecified erectile dysfunction typ e N52.9 Active 032126235 Problem Subjective visual disturbance of both eyes H53.10 Active 26808111 Problem Heart valve disease I38 Active 972564 Problem Cataracts, bilateral H26.9 Active 86857121 Problem Essential (primary) hypertension I10 Active 98566817 Problem Stented coronary artery Z95.5 Active 84352150 5 Problem Low back pain radiating to right leg M54.5 Act [place] 535942454 Problem Type 2 diabetes mellitus wit h diabetic neuropathy, without long-term current use of insulin E11.40 Active 96488908 Problem Hyperlipidemia, unspecified hyperlipidemia type E7 8.5 Active 41618650 Problem Other chronic pain G89.29 Active 17415043 Problem Lumbago with sciatica, right side M54.41 Active 154844174 Problem Dyslipidemia E78.5 Active 057499942 Problem Hemiplegic migraine without status migrainosus, 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 Active 88554566 Problem Benign prostatic hyperplasia with lower urinary tract symptoms, unspecified morphology N40.1 Active 7352756043857 1 Problem Atherosclerotic heart diseas e of [place] coronary artery without angina pectoris I25.10 Active 343736654 Problem Hypogonadism in male E29.1 Active 27089807 Problem History of [place] (myocardial infarction) I25.2 Ac tive 690124970 Problem Exertional dyspnea R06.09 Active 34257947 Problem Essential hypertension I10 Active 91739365 Problem Anxiety disorder, unspecified F41.9 Active 48 659084 Problem Major depressive disorder, single episode, unspecified F32.9 Active 76456339 Problem Prostate cancer screening Z12.5 Active 383485 002 ALLERGIES No Known Allergies ENCOUNTERS from 1942 to 2020-02-25 Encounter Location Date Provider Diagnosis [facility] U[facility] [address] [place] [address] Feb Clotilde Saul IMMUNIZATIONS Vaccine Route Administration Date Status Influenza [...] Education Language: Question Answer Notes Languages spoken: Maltese Holiness: Question Answer Notes Holiness 21 Alevism Sexual Hx: Question Answer Notes Had sex [...] Notes Start Da te End Date Status Celecoxib 200 MG 1 capsule Orally Once a day Active Needle (Disp) 18G X 1-1/2" as directed as directed for 90 day(s) Jan, Active Gabapentin 400 MG 1 capsule Orally Three times a day Active Coreg 12.5 MG 1 tab Orally bid for 90 Active Tamsulosin HCl 0.4 MG 1 capsule 30 minutes after t he same meal each day Orally Once a day for 180 day(s) Active Testosterone Cypionate 200 MG/ML 1 ml Intramuscular 1 ml every 2 weeks 90 day supply, code F 13 Dec, 2019 Active Blood Glucose Test Strip - as directed In Vitro BID for 30 days Active Glucometer as directed bid for 30 day(s) Active Metformin HCl 850 MG 1 tablet in AM and 0.5 tab i n PM Orally as directed for 90 day(s) Active Lancets - as directed bid for 30 day(s) Active Pantoprazole Sodium 20 MG 2 tablets Orally Once a day for 90 Active Aspir-81 81 MG 1 tablet Orally Once a day Active Nitrostat 0.4 MG 1 tab Sublingual As needed Active Furosemide 20 MG 1 tablet Orally Once a day for 30 day(s) Aug, Active Depakote ER 500 MG 1 tab`with a 250mg = 750mg Orally before bedtime Active Clopidogrel Bisulfate 75 MG 1 tablet Orally Once a day for 90 days Active Atorvastatin Calcium 40 MG 1 tablet Orally Once a day for 90 Active Syringe 22G X 1" 3 ML as directed as directed for 90 day(s) Jan, Active Escitalopram Oxalate 20 MG 1 tablet Orally Once a day for 90 day(s) Active AndroGel Pump 20.25 MG/ACT (1.62%) as directed Transde rmal to shoulder or chest 2 pumps once a day for 30 Days July, A ctive PROCEDURES No Information RESULTS No Results REASON FOR VISIT message about testosterone MEDICAL (GENERAL) HISTORY Type Description Date Medical History Benign prostatic hyperplasia with lower urinary tract symptoms, unspecified morphology Medical History Exertional dyspnea Medical History Anxiety associated with depression Medical History Essential hypertension with goal blood pressure less than 140\\/90 Medical History CAD s/p stenting in 2015 [...] Cardiac stent x 3 Surgical History angioplasty 8-4-16 Surgical History SPINAL INJECTIONS MULTIPLE TIMES 01/2018 ,03/12, 04/13 Surgical History gel in left knee 03/[address] [place] - angina with [place] 08/11/2015- Hospitalization History Mild Stroke [facility] 08/25/[address] [facility] - angioplasti 10-28-15 Hospitalization History [facility] 01/2018 Goals Section No Information Health Concerns No Information MEDICAL EQUIPMENT No Information MENTAL STATUS No Information FUNCTIONAL STATUS No Information ASSESSMENTS No Information PLAN OF TREATMENT Medication Medication Name Sig Start Date Stop Date Testosterone Cypionate 200 MG/ML 1 ml Intramuscular 1 ml every 2 weeks 90 day supply, code F 13 Dec, 2019 Syringe 22G X 1" 3 ML as directed as directed for 90 day(s) 24 N 2019 Atorvastatin Calcium 40 MG 1 tablet Orally Once a day for 90 Needle (Disp) 18G X 1-1/2" as directed as directed for 90 day(s) Jan, Insurance Providers Payer Name Payer Address Payer Phone Insured Name Patient Relati onship to Insured Coverage Start Date Coverage End Date JAHAIRA REARDON [address] [address] [facility] [phone] ALLEN MALONEY self
--- OUTSIDE RECORDS SUMMARY | 2020-05-08 20:23 | CCD ---
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 Activ e confirmed 671228550 Problem Erectile dysfunction, unspecified erectile dysfunction typ e N52.9 Active confirmed 658843722 Problem Subjective visual disturbance of both eyes H53.10 Active confirmed 83009733 Problem Heart valve disease I38 Active confirmed 187115 Problem Cataracts, bilateral H26.9 Active confirmed 51649658 Problem Essential (primary) hypertension I10 Active conf irmed 06260940 Problem Stented coronary artery Z95.5 Active confirmed 532203949 Problem Low back pain radiating to right leg M54.5 Act [place] confirmed 354421206 Problem Type 2 diabetes mellitus wit h diabetic neuropathy, without long-term current use of insulin E11.40 Active confirmed 7002408 6 Problem Hyperlipidemia, unspecified hyperlipidemia type E7 8.5 Active confirmed 47618975 Problem Other chronic pain G89.29 Active confirmed 8 9698402 Problem Lumbago with sciatica, right side M54.41 Active confirmed 910160999 Problem Dyslipidemia E78.5 Active confirmed 0026154 07 Problem Hemiplegic migraine without status migrainosus, 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 Active confirmed 47815207 Problem Benign prostatic hyperplasia with lower urinary tract symptoms, unspecified morphology N40.1 Active confirmed 7540386 9590537 Problem Atherosclerotic heart diseas e of [place] coronary artery without angina pectoris I25.10 Active confirmed 920959057 Problem Hypogonadism in male E29.1 Active confirmed 53261207 Problem History of [place] (myocardial infarction) I25.2 Ac tive confirmed 916441885 Problem Exertional dyspnea R06.09 Active confirmed 6 0108200 Problem Essential hypertension I10 Active confirmed 18577503 Problem Anxiety disorder, unspecified F41.9 Active confirm ed 40055999 Problem Major depressive disorder, single episode, unspecified F32.9 Active confirmed 70882999 Problem Prostate cancer screening Z12.5 Active confirmed 163622235 ALLERGIES No Known Allergies ENCOUNTERS from 1940 to 2020-04-29 Encounter Location Date Provider Diagnosis [address] [place] [address] Mar Mary Khalil IMMUNIZATIONS Vaccine Route Administration Date Status Influenza [...] Education Language: Question Answer Notes Languages spoken: Ethiopian Protestant: Question Answer Notes Protestant 21 Moravian Sexual Hx: Question Answer Notes Had sex [...] Information RESULTS No Results REASON FOR VISIT approved transfer MEDICAL (GENERAL) HISTORY Type Description Date Medical History Benign prostatic hyperplasia with lower urinary tract symptoms, unspecified morphology Medical History Exertional dyspnea Medical History Anxiety associated with depression Medical History Essential hypertension with goal blood pressure less than 140\\/90 Medical History CAD s/p stenting in 2015 and again in 2016: followed by Dr. Casillas, saw June 2017, [...] in left knee 03/[address] [place] - angina with [place] 08/11/2015- Hospitalization History Mild Stroke [facility] 08/25/[address] [facility] - angioplasti 10-28-15 [facility] 01/2018 Goals Section No Information Health Concerns [...] directed for 90 day(s) 24 N 2019 Needle (Disp) 18G X 1-1/2" as directed as directed for 90 day(s) Jan, Pantoprazole Sodium 20 MG 2 tablets Orally Once a day for 90 Atorvastatin Calcium 40 MG 1 tablet Orally Once a day for 90 Next Appt Details Provider Name:Mary Khalil, 2020-06-08 09:00:00 AM, [address] [place], [address], Insurance Providers Payer Name Payer Address Payer Phone Insured Name Patient Relati onship to Insured Coverage Start Date Coverage End Date JAHAIRA REARDON [address] [place] [phone] ALLEN MALONEY self
--- OUTSIDE RECORDS SUMMARY | 2020-05-08 20:23 | CCD | Continuity of Care Document ---
Author Author Steve NEFF M.D. Organization Unknown Address [facility] [place] [address] Phone [phone] Care Team Providers Care Backshoe Person Name Role Phone Lencho Valenzuela M.D. AUTM [phone] Problems Active Problems Provider Date Migraine Laya [...] lb BMI (Body Mass Index) 36.0 kg/m2 Carrie Body Weight 166 lb 12/08/2019 10:04am Respiratory Rate 12 /min Height 70 inches 5'10" Weight 251.00 lb BMI (Body Mass Index) 36.0 kg/m2 Carrie Body Weight 166 lb Results Description No Information Available Procedures Description No Information Available Medical Devices Description No Information Available Encounters Type Date Location Provider Dx Diagnosis Office Visit 12/08/2019 10:00a Main office - [place] [facility] Laya roque M.D. G43.401 Hemiplegic migraine, not [...]
--- OUTSIDE RECORDS SUMMARY | 2020-05-08 20:23 | CCD ---
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 Activ e 790176438 Problem Erectile dysfunction, unspecified erectile dysfunction typ e N52.9 Active 352640757 Problem Subjective visual disturbance of both eyes H53.10 Active 73566716 Problem Heart valve disease I38 Active 484519 Problem Cataracts, bilateral H26.9 Active 81852326 Problem Essential (primary) hypertension I10 Active 61168649 Problem Stented coronary artery Z95.5 Active 35834210 5 Problem Low back pain radiating to right leg M54.5 Act [place] 438191684 Problem Type 2 diabetes mellitus wit h diabetic neuropathy, without long-term current use of insulin E11.40 Active 54194310 Problem Hyperlipidemia, unspecified hyperlipidemia type E7 8.5 Active 18168357 Problem Other chronic pain G89.29 Active 27931919 Problem Lumbago with sciatica, right side M54.41 Active 130546507 Problem Dyslipidemia E78.5 Active 713997938 Problem Hemiplegic migraine without status migrainosus, 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 Active 15021750 Problem Benign prostatic hyperplasia with lower urinary tract symptoms, unspecified morphology N40.1 Active 2735749876699 1 Problem Atherosclerotic heart diseas e of [place] coronary artery without angina pectoris I25.10 Active 119142505 Problem Hypogonadism in 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 Active 44834657 Problem History of [place] (myocardial infarction) I25.2 Ac tive 215503341 Problem Exertional dyspnea R06.09 Active 52917379 Problem Essential hypertension I10 Active 13005291 Problem Anxiety disorder, unspecified F41.9 Active 48 207494 Problem Major depressive disorder, single episode, unspecified F32.9 Active 89803748 Problem Prostate cancer screening Z12.5 Active 757362 002 ALLERGIES No Known Allergies ENCOUNTERS from 1940 to 2020-02-17 Encounter Location Date Provider Diagnosis [facility] [address] [place] [address] Jan Clotilde Saul Hypogonadism in male E29.1 IMMUNIZATIONS Vaccine Route [...] Education Language: Question Answer Notes Languages spoken: [place] Baptism: Question Answer Notes Baptism 21 Yarsanism Sexual Hx: Question Answer Notes Had sex [...] Information RESULTS No Results REASON FOR VISIT testosterone MEDICAL (GENERAL) HISTORY Type Description Date [...] in left knee 03/[address] [place] - angina with [place] 08/11/2015- Hospitalization History Mild Stroke [facility] 08/25/[address] [facility] - angioplasti 10-28-15 Hospitalization History [facility] 01/2018 Goals Section No Information Health Concerns [...] Insured Coverage Start Date Coverage End Date HUMANErasmo REARDON [address] [address] [facility] [phone] ALLEN MALONEY self
--- OUTSIDE RECORDS SUMMARY | 2020-05-08 20:24 | CCD ---
Author Author [facility] Organization [facility] Address Unknown Phone Unavailable Care Team Providers Care Lead Network Architect Name Role Phone Chrissie Casillas MD Unavailable Unavailable Chrissie Casillas MD Unavailable Unavailable Chrissie Casillas MD Unavailable Unavailable Chrissie Casillas MD Unavailable Unavailable Chrissie Casillas MD Unavailable Unavailable hCrissie Casillas MD Unavailable Unavailable Chrissie Casillas MD Unavailable Unavailable Chrissie Casillas MD Unavailable Unavailable Chrissie Casillas MD Unavailable Unavailable Chrissie Casillas MD Unavailable Unavailable Chrissie Casillas MD Unavailable Unavailable Chrissie Casillas MD Unavailable Unavailable Chrissie Casillas MD Unavailable Unavailable Chrisise Casillas MD Unavailable Unavailable Chrissie Casillas MD Unavailable Unavailable Chrissie Casillas MD Unavailable Unavailable Chrissie Casillas MD Unavailable Unavailable Chrissie Casillas MD Unavailable Unavailable Chrissie Casillas MD Unavailable Unavailable Chrissie Casillas MD Unavailable Unavailable Chrissie Casillas MD Unavailable Unavailable Chrissie Casillas MD Unavailable Unavailable Chrissie Casillas MD Unavailable Unavailable Chrissie Casillas MD Unavailable Unavailable Chrissie Casillas MD Unavailable Unavailable Chrissie Casillas MD Unavailable Unavailable Chrissie Casillas MD Unavailable Unavailable Chrissie Casillas MD Unavailable Unavailable Chrissie Casillas MD Unavailable Unavailable Chrissie Casillas MD Unavailable Unavailable SleChrissie anderson MD Unavailable Unavailable SlekailynkaJulianotech Unavailable Unavailable SlekailynkaJulianotech Unavailable Unavailable SlekailynkaJulianotech Unavailable Unavailable SlekailynkaJulianotech Unavailable Unavailable SlekailynkaJulianotech Unavailable Unavailable SlezkaJulianotech Unavailable Unavailable SlezkaAldairjtech Unavailable Unavailable SlezkaAldairjtech Unavailable Unavailable SlekailynkaJulianotech Unavailable Unavailable SlekailynkaAldairjtech Unavailable Unavailable SlekailynkaJulianotech Unavailable Unavailable SlezkaAldairjtech Unavailable Unavailable SlezkaAldairjtech Unavailable Unavailable SlezkaAldairjtech Unavailable Unavailable SlekailynkaJulianotech Unavailable Unavailable SlekailynkaAldairjtech Unavailable Unavailable SleJuliano andersontech Unavailable Unavailable SleAldair andersonjtech Unavailable Unavailable SleAldair andersonjtech Unavailable Unavailable SleJuliano andersontech Unavailable Unavailable SleJuliano andersontech Unavailable Unavailable Juliano Casillastech Unavailable Unavailable SleChrissie anderson MD Unavailable Unavailable SlekailynkaAldairjtech Unavailable Unavailable SleAldair andersonjtech Unavailable Unavailable SlekailynkaAldairjtech Unavailable Unavailable Juliano Casillastech Unavailable Unavailable Rachell BO, Ignacio Rai Unavailable Rachell BO, Ignacio Rai Unavailable Rachell BO, Ignacio Rai Unavailable Rachell BO, Ignacio Rai Unavailable Rachell BO, Ignacio Young Unavailable Rachell BO, Ignacio Rai Unavailable [place], N Shemar ENROLLMENT COUNSELOR Unavailable Unavailable Ca, N Shemar ENROLLMENT COUNSELOR Unavailable Unavailable [place], N Shemar ENROLLMENT COUNSELOR Unavailable Unavailable Ca, N Shemar ENROLLMENT COUNSELOR Unavailable Unavailable Ca, N Shemar ENROLLMENT COUNSELOR Unavailable Unavailable Ca, N Shemar ENROLLMENT COUNSELOR Unavailable Unavailable [place], N Shemar ENROLLMENT COUNSELOR Unavailable Unavailable [place], N Shemar ENROLLMENT COUNSELOR Unavailable Unavailable [place], N Shemar ENROLLMENT COUNSELOR Unavailable Unavailable Ca, N Shemar ENROLLMENT COUNSELOR Unavailable Unavailable Ca, N Shemar ENROLLMENT COUNSELOR Unavailable Unavailable [place], N Shemar ENROLLMENT COUNSELOR Unavailable Unavailable Ca, N Shemar ENROLLMENT COUNSELOR Unavailable Unavailable Ca, N Shemar ENROLLMENT COUNSELOR Unavailable Unavailable Ca, N Shemar ENROLLMENT COUNSELOR Unavailable Unavailable Ca, N Shemar ENROLLMENT COUNSELOR Unavailable Unavailable Ca, N Shemar ENROLLMENT COUNSELOR Unavailable Unavailable [place], N Shemar ENROLLMENT COUNSELOR Unavailable Unavailable [place], N Shemar ENROLLMENT COUNSELOR Unavailable Unavailable [place], N Shemar ENROLLMENT COUNSELOR Unavailable Unavailable [place], N Shemar ENROLLMENT COUNSELOR Unavailable Unavailable Ca, N Shemar ENROLLMENT COUNSELOR Unavailable Unavailable Ca, N Shemar ENROLLMENT COUNSELOR Unavailable Unavailable Ca, N Shemar ENROLLMENT COUNSELOR Unavailable Unavailable Ca, N Shemar ENROLLMENT COUNSELOR Unavailable Unavailable Ca, N Shemar ENROLLMENT COUNSELOR Unavailable Unavailable Ca, N Shemar ENROLLMENT COUNSELOR Unavailable Unavailable Ca, N Shemar ENROLLMENT COUNSELOR Unavailable Unavailable Ca, N Shemar ENROLLMENT COUNSELOR Unavailable Unavailable Ca, N Shemar ENROLLMENT COUNSELOR Unavailable Unavailable [place], N Shemar ENROLLMENT COUNSELOR Unavailable Unavailable Ivan Hansen MD Unavailable Unavailable Ivan Hansen MD Unavailable Unavailable Ivan Hansen MD Unavailable Unavailable Ivan Hansen MD Unavailable Unavailable Ivan Hansen MD Unavailable Unavailable Ivan Hansen MD Unavailable Unavailable Ivan Hansen MD Unavailable Unavailable Ivan Hansen MD Unavailable Unavailable Ivan Hansen MD Unavailable Unavailable Ivan Hansen MD Unavailable Unavailable Ivan Hansen MD Unavailable Unavailable Ivan Hansen MD Unavailable Unavailable Ivan Hansen MD Unavailable Unavailable Ivan Hansen MD Unavailable Unavailable Ivan Hansen MD Unavailable Unavailable Ivan Hansen MD Unavailable Unavailable Ivan Hansen MD Unavailable Unavailable Ivan Hansen MD Unavailable Unavailable Ivan Hansen MD Unavailable Unavailable Ivan Hansen MD Unavailable Unavailable Ivan Hansen MD Unavailable Unavailable Ivan Hansen MD Unavailable Unavailable Ivan Hansen MD Unavailable Unavailable Ivan Hansen MD Unavailable Unavailable Ivan Hansen MD Unavailable Unavailable Ivan Hansen MD Unavailable Unavailable Ivan Hansen MD Unavailable Unavailable Ivan Hansen MD Unavailable Unavailable Ivan Hansen MD Unavailable Unavailable Ivan Hansen MD Unavailable Unavailable Ivan Hansen MD Unavailable Unavailable Ivan Hansen MD Unavailable Unavailable Ivan Hansen MD Unavailable Unavailable Ivan Hansen MD Unavailable Unavailable Ivan Hansen MD Unavailable Unavailable Ivan Hansen [place] BO Unavailable Unavailable Ivan Hansen MD Unavailable Unavailable Ivan Hansen MD Unavailable Unavailable Ivan Hansenah Unavailable Unavailable Ivan Hansen MD Unavailable Unavailable Ivan Hansen MD Unavailable Unavailable Ivan Hansen MD Unavailable Unavailable Ivan Hansen MD Unavailable Unavailable Ivan Hansen MD Unavailable Unavailable Ivan Hansenah Unavailable Unavailable Ivan Hansen MD Unavailable Unavailable Ivan Hansen MD Unavailable Unavailable Ivan Hansen MD Unavailable Unavailable Iavn Hansen MD Unavailable Unavailable Ivan Hansen MD Unavailable Unavailable Ivan Hansen MD Unavailable Unavailable Ivan Hansen MD Unavailable Unavailable Ivan Hansen MD Unavailable Unavailable Ivan Hansen MD Unavailable Unavailable Ivan Hansen MD Unavailable Unavailable Ivan Hansen MD Unavailable Unavailable Ivan Hansen MD Unavailable Unavailable Ivan Hansen MD Unavailable Unavailable Ivan Hansen MD Unavailable Unavailable Ivan Hansen MD Unavailable Unavailable Ivan Hansen MD Unavailable Unavailable Ivan Hansen MD Unavailable Unavailable Ivan Hansen MD Unavailable Unavailable Ivan Hansen MD Unavailable Unavailable Ivan Hansen MD Unavailable Unavailable Ivan Hansen MD Unavailable Unavailable Ivan Hansen MD Unavailable Unavailable Ivan Hansen MD Unavailable Unavailable Ivan Hansen MD Unavailable Unavailable Ivan Hansen MD Unavailable Unavailable Ivan Hansen MD Unavailable Unavailable Ivan Hansen MD Unavailable Unavailable Ivan Hansen MD Unavailable Unavailable Ivan Hansen MD Unavailable Unavailable Ivan Hansen MD Unavailable Unavailable Ivan Hansen MD Unavailable Unavailable Re-disclosure Warning The records that you are about to access may contain information from federally-assisted alcohol or drug abuse programs. If such information is present, then the following federally mandated warning applies: This information has been disclosed to you from records protected by federal confidentiality rules (42 CFR part 2). The federal rules prohibit you from making any further disclosure of this information unless further disclosure is expressly permitted by the written consent of the person to whom it pertains or as otherwise permitted by 42 CFR part 2. A general authorization for the release of medical or other information is NOT sufficient for this purpose. The Federal rules restrict any use of the information to criminally investigate or prosecute any alcohol or drug abuse patient.The records that you are about to access may contain highly sensitive health information, the redisclosure of which is protected by Article 27-F of the [facility] Public Health law. If you continue you may have access to information: Regarding HIV / AIDS; Provided by facilities licensed or operated by the [facility] Office of Mental Health; or Provided by the [facility] Office for People With Developmental Disabilities. If such information is present, then the following [facility] mandated warning applies: This information has been disclosed to you from confidential records which are protected by state law. State law prohibits you from making any further disclosure of this information without the specific written consent of the person to whom it pertains, or as otherwise permitted by law. Any unauthorized further disclosure in violation of state law may result in a fine or long-term sentence or both. A general authorization for the release of medical or other information is NOT sufficient authorization for further disc losure. Family History Family Member Name Family Member Gender Family Member Status Date o f Status Description Data Source(s) Unknown Unknown Problem [facility] Encounters Encounter Providers Location Date Indications Data Source(s ) Outpatient Referrer: Fredi Lovett MD 04/19/2020 09:16:57 AM E [facility] [place] [address] [facility] [address] 04/14/2020 12:00:00 AM EST eCW1 ([facility]) Outpatient Attender: Laya Hansen MD Main office - [facility] 03/16/2020 10:00:00 AM EST MEDENT ([facility]) Outpatient Attender: Shemar [email or web address] 020 12:00:00 AM EST - 02/24/2020 09:37:52 AM EST [facility] Unknown [address] [facility] [address] 02/24/2020 12:00:00 AM EST eCW1 ([facility]) [place] [address] [address] 02/17/2020 12:00:00 AM EST eCW1 ([facility]) [place] [address] [facility] [address] 02/02/2020 12:00:00 AM EST eCW1 ([facility]) Outpatient [address] [facility] [address] 01/14/2020 12:00:00 AM EDT eCW1 ([facility]) Outpatient [address] [facility] [address] 01/06/2020 12:00:00 AM EDT eCW1 ([facility]) [place] [address] [facility] [address] 01/06/2020 12:00:00 AM EDT eCW1 ([facility]) [place] [address] [facility] [address] 01/06/2020 12:00:00 AM EDT eCW1 ([facility]) [facility] [address] [facility] [address] 12/30/2019 12:00:00 AM EDT eCW1 ([facility]) Outpatient Attender: Laya Hansen MD Main office - [facility] 12/08/2019 10:00:00 AM EDT MEDENT ([facility] Evita velasquez, ISABELLA) Outpatient Attender: Shemar Penaloza NPAttender: Chrissie [email or web address] 11/25/2019 12:00:00 AM EDT [facility] TeleMedicine Est. Pt. Level 3 [address] [place] [address] 08/26/2019 12:00:00 AM EDT eCW1 ([facility]) Outpatient Attender: Chrissie Casillas MD [email or web address] 07/25 12:00:00 AM EDT - 08/21/2019 04:34:59 PM EDT [facility] [address] [facility] [address] 08/12/2019 12:00:00 AM EDT eCW1 ([facility]) [facility] [address] [place] [address], [place] [address] 08/06/2019 12:00:00 AM EDT eCW1 ([facility]) [facility] [address] [place] [address] [place] [address] 07/28/2019 12:00:00 AM EDT eCW1 ([facility]) Outpatient Attender: Laya Hansen MD [facility] office [facility] 07/15/2019 10:45:00 AM EDT MEDENT ([facility]) [place]patient [address] [facility] [facility] [address] 07/08/2019 12:00:00 AM EDT eCW1 ([facility] [address] [place] [address] [address] 06/26/2019 12:00:00 AM EDT eCW1 ([facility] [address] [place] [address], [place] [address] 06/24/2019 12:00:00 AM EDT eCW1 ([facility]) [facility] [address] [place] [address], [place] [address] 05/08/2019 12:00:00 AM EST eCW1 ([facility]) [facility] [address] [facility] [place] [address] 05/01/2019 12:00:00 AM EST eCW1 ([facility]) Outpatient Attender: Laya Hansen MD Main office - [facility] 04/08/2019 10:00:00 AM EST MEDENT ([facility] ISABELLA velasquez) [facility] [address] [facility] [address] 04/08/2019 12:00:00 AM EST eCW1 ([facility]) Outpatient Attender: Chrissie [email or web address] 02/24 12:00:00 AM EST [facility] Immunizations Vaccine Date Status Description Data Source(s) COVID-19 VACCINE, [id number], LNP-S (MODERNA)/PF 04/21/2020 1 2:00:00 AM EST completed [facility] Medications Medication Brand Name Start Date Product Form Dose Route Admi nistrative Instructions Pharmacy Instructions Status Indications Reaction Description Data Source(s) 20 mg 04/26/2020 12:00:00 AM EST tablet,delayed release (DR/EC) 180 TAKE 2 TABLETS BY MOUTH ONCE A DAY TAKE 2 TABLETS BY MOUTH ONCE A DAY SOLD: 04/26/2020 [facility] 24 HR Divalproex Sodium 500 MG Extended Release Oral Tablet DIVALPROEX SODIUM 04/22/2020 12:00:00 AM EST tablet extended release 24 hr 90 TAKE 1TAB.BY MOUTH AT BEDTIME WITH 250MG DOSE FOR A TOTAL OF 750MG AT BEDTIME TAKE 1TAB.BY MOUTH AT BEDTIME WITH 250MG DOSE FOR A TOTAL OF 750MG AT BEDTIME SOLD: 04/23/2020 [facility] Acetaminophen 325 MG / tramadol hydrochloride 37.5 MG Oral Tablet 37.5-325 mg TRAMADOL HCL/ACETAMINOPHEN 04/09/2020 12:00:00 AM EST tablet 60 TAKE ONE TABLET BY MOUTH TWICE A DAY NEEDED FOR PAIN MAXIMUM DAILY DOSE = 2 TABLETS TAKE ONE TABLET BY MOUTH TWICE A DAY NEEDED FOR PAIN MAXIMUM DAILY DOSE = 2 TABLETS SOLD: 04/09/2020 [facility] 200 mg 03/17/2020 12:00:00 AM EST capsule 30 TAKE ONE CAPSULE BY MOUTH ONCE DAILY WITH FOOD TAKE ONE CAPSULE BY MOUTH ONCE DAILY WITH FOOD SOLD: 021 [facility] 200 mg 03/17/2020 12:00:00 AM EST capsule 30 TAKE ONE CAPSULE BY MOUTH ONCE DAILY WITH FOOD TAKE ONE CAPSULE BY MOUTH ONCE DAILY WITH FOOD SOLD: 020 [facility] Sertraline 50 MG Oral Tablet Sertraline HCL 03/16/2020 12:00:00 AM EST ORAL active MEDENT ([facility]) 50 mg 03/16/2020 12:00:00 AM EST tablet 30 TAKE ONE TABLET BY MOUTH EVERY DAY TAKE ONE TABLET BY MOUTH EVERY DAY SOLD: 04/14/2020 [facility] 50 mg 03/16/2020 12:00:00 AM EST tablet 30 TAKE ONE TABLET BY MOUTH EVERY DAY TAKE ONE TABLET BY MOUTH EVERY DAY SOLD: 03/17/2020 [facility] 2 mg 02/27/2020 12:00:00 AM EST tablet 3 TAKE ONE TABLET BY MOUTH NEEDED FOR ANXIETY PRE-MRI MAXIMUM DAILY DOSE = 3 TABLETS TAKE ONE TABLET BY MOUTH NEEDED FOR ANXIETY PRE-MRI MAXIMUM DAILY DOSE = 3 TABLETS SOLD: 02/27/2020 [facility] Acetaminophen 325 MG / tramadol hydrochloride 37.5 MG Oral Tablet 37.5-325 mg TRAMADOL HCL/ACETAMINOPHEN 02/27/2020 12:00:00 AM EST tablet 14 TAKE ONE TABLET BY MOUTH TWO TIMES A DAY NEEDED FOR PAIN MAXIMUM DAILY DOSE = 2 TABLETS TAKE ONE TABLET BY MOUTH TWO TIMES A DAY NEEDED FOR PAIN MAXIMUM DAILY DOSE = 2 TABLETS SOLD: 03/24/2020 [facility] 40 mg 02/27/2020 12:00:00 AM EST tablet 180 TAKE ONE TABLET BY MOUTH TWICE A DAY TAKE ONE TABLET BY MOUTH TWICE A DAY SOLD: 02/27/2020 [facility] Acetaminophen 325 MG / tramadol hydrochloride 37.5 MG Oral Tablet 37.5-325 mg TRAMADOL HCL/ACETAMINOPHEN 02/27/2020 12:00:00 AM EST tablet 14 TAKE ONE TABLET BY MOUTH TWO TIMES A DAY NEEDED FOR PAIN MAXIMUM DAILY DOSE = 2 TABLETS TAKE ONE TABLET BY MOUTH TWO TIMES A DAY NEEDED FOR PAIN MAXIMUM DAILY DOSE = 2 TABLETS SOLD: 02/27/2020 [facility] gabapentin 800 MG Oral Tablet GABAPENTIN 02/27/2020 12:00:00 AM EST t ablet 120 TAKE ONE TABLET BY MOUTH FOUR TIMES A DAY MAXIMUM NAKUL Y DOSE = 4 TAKE ONE TABLET BY MOUTH FOUR TIMES A DAY MAXIMUM DAILY DOSE = 4 SOLD: 04/23/2020 [facility] gabapentin 800 MG Oral Tablet GABAPENTIN 02/27/2020 12:00:00 AM EST t ablet 120 TAKE ONE TABLET BY MOUTH FOUR TIMES A DAY MAXIMUM NAKUL Y DOSE = 4 TAKE ONE TABLET BY MOUTH FOUR TIMES A DAY MAXIMUM DAILY DOSE = 4 SOLD: 03/26/2020 [facility] gabapentin 800 MG Oral Tablet GABAPENTIN 02/27/2020 12:00:00 AM EST t ablet 120 TAKE ONE TABLET BY MOUTH FOUR TIMES A DAY MAXIMUM NAKUL Y DOSE = 4 TAKE ONE TABLET BY MOUTH FOUR TIMES A DAY MAXIMUM DAILY DOSE = 4 SOLD: 02/27/2020 [facility] Acetaminophen 325 MG / tramadol hydrochloride 37.5 MG Oral Tablet 37.5-325 mg TRAMADOL HCL/ACETAMINOPHEN 02/27/2020 12:00:00 AM EST tablet 14 TAKE ONE TABLET BY MOUTH TWO TIMES A DAY NEEDED FOR PAIN MAXIMUM DAILY DOSE = 2 TABLETS TAKE ONE TABLET BY MOUTH TWO TIMES A DAY NEEDED FOR PAIN MAXIMUM DAILY DOSE = 2 TABLETS SOLD: 04/01/2020 [facility] Acetaminophen 325 MG / tramadol hydrochloride 37.5 MG Oral Tablet 37.5-325 mg TRAMADOL HCL/ACETAMINOPHEN 02/27/2020 12:00:00 AM EST tablet 14 TAKE ONE TABLET BY MOUTH TWO TIMES A DAY NEEDED FOR PAIN MAXIMUM DAILY DOSE = 2 TABLETS TAKE ONE TABLET BY MOUTH TWO TIMES A DAY NEEDED FOR PAIN MAXIMUM DAILY DOSE = 2 TABLETS SOLD: 03/11/2020 [facility] 3 mL 22 gauge x 1" 02/17/2020 12:00:00 AM EST syringe 6 USE DIRECTED USE DIRECTED SOLD: 02/17/2020 [facility] 200 mg/mL 02/17/2020 12:00:00 AM EST oil 6 INJECT 1ML INTRAMUSCULARLY EVERY 2 WEEKS MAXIMUM DAILY DOSE = 1ML EVERY 2 WEEKS INJECT 1ML INTRAMUSCULARLY EVERY 2 WEEKS MAXIMUM DAILY DOSE = 1ML EVERY 2 WEEKS SOLD: 02/17/2020 [facility] Needle (Disp) 18G X 1-1/2" UNK 02/17/2020 12:00:00 AM EST active Needle (Disp) 18G X 1-1/2" eCW1 ([facility]) testosterone cypionate (DEPOTESTOTERONE CYPIONATE) 200 MG/ML injection 0732-6596-54 02/17/2020 12:00:00 AM EST activ e INJECT 1ML INTRAMUSCULARLY EVERY 2 WEEKS MAXIMUM DAILY DOSE 1ML EVERY 2 WEEKS [facility] Syringe 22G X 1" 3 ML Syringe 22G X 1" 3 ML 02/17/2020 12:00:00 AM EST active Syringe 22G X 1" 3 ML eCW1 ( [facility]) Syringe 22G X 1" 3 ML Syringe 22G X 1" 3 ML 02/17/2020 12:00:00 AM EST active Syringe 22G X 1" 3 ML eCW1 ( [facility]) Needle (Disp) 18G X 1-/2" UNK 02/17/2020 12:00:00 AM EST active Needle (Disp) 18G X 1-1/2" eCW1 ([facility]) Needle (Disp) 18G X 1-/2" UNK 02/17/2020 12:00:00 AM EST active Needle (Disp) 18G X 1-/2" eCW1 ([facility]) 18 gauge x 1 1/2" 02/17/2020 12:00:00 AM EST needle 6 USE DIRECTED USE DIRECTED SOLD: 02/17/2020 [facility] Syringe 22G X 1" 3 ML Syringe 22G X 1" 3 ML 02/17/2020 12:00:00 AM EST active Syringe 22G X 1" 3 ML eCW1 ( [facility]) 200 mg 02/16/2020 12:00:00 AM EST capsule 30 TAKE ONE CAPSULE BY MOUTH EVERY DAY WITH FOOD TAKE ONE CAPSULE BY MOUTH EVERY DAY WITH FOOD SOLD: 02/16/2020 [facility] 200 mg/mL 02/11/2020 12:00:00 AM EST oil 1 INJECT 1ML INTRAMUSCULARLY ONCE DIRECTED MAXIMUM DAILY DOSE = 1ML INJECT 1ML INTRAMUSCULARLY ONCE DIREC [place] MAXIMUM DAILY DOSE = 1ML SOLD: 02/11/2020 [facility] 75 mg 02/04/2020 12:00:00 AM EST tablet 30 TAKE ONE TABLET BY MOUTH EVERY DAY TAKE ONE TABLET BY MOUTH EVERY DAY SOLD: 04/28/2020 [facility] 75 mg 02/04/2020 12:00:00 AM EST tablet 30 TAKE ONE TABLET BY MOUTH EVERY DAY TAKE ONE TABLET BY MOUTH EVERY DAY SOLD: 03/31/2020 [facility] 75 mg 02/04/2020 12:00:00 AM EST tablet 30 TAKE ONE TABLET BY MOUTH EVERY DAY TAKE ONE TABLET BY MOUTH EVERY DAY SOLD: 02/04/2020 [facility] 75 mg 02/04/2020 12:00:00 AM EST tablet 30 TAKE ONE TABLET BY MOUTH EVERY DAY TAKE ONE TABLET BY MOUTH EVERY DAY SOLD: 03/03/2020 [facility] atorvastatin 40 MG Oral Tablet ATORVASTATIN CALCIUM 02/02/2020 1 2:00:00 AM EST tablet 90 TAKE 1 TABLET BY MOUTH ONCE A DAY TAKE 1 TABLET BY MOUTH ONCE A DAY SOLD: 02/02/2020 [facility] carvedilol 12.5 MG Oral Tablet CARVEDILOL 01/31/2020 12:00:00 AM EST tablet 180 TAKE ONE TABLET BY MOUTH TWICE A DAY TAKE ONE TABLET BY MOUT H TWICE A DAY SOLD: 01/31/2020 [facility] carvedilol 12.5 MG Oral Tablet CARVEDILOL 01/31/2020 12:00:00 AM EST tablet 180 TAKE ONE TABLET BY MOUTH TWICE A DAY TAKE ONE TABLET BY MOUT H TWICE A DAY SOLD: 04/28/2020 [facility] 250 mg 01/22/2020 12:00:00 AM EDT tablet extended release 24 hr 90 TAKE ONE TABLET BY MOUTH AT BEDTIME IN ADDITION TO YOUR 500MG AT BEDTIME FOR A TOTAL OF 750MG AT BEDTIME TAKE ONE TABLET BY MOUTH AT BEDTIME IN A DDITION TO YOUR 500MG AT BEDTIME FOR A TOTAL OF 750MG AT BEDTIME SOLD: 04/19/2020 [facility] 250 mg 01/22/2020 12:00:00 AM EDT tablet extended release 24 hr 90 TAKE ONE TABLET BY MOUTH AT BEDTIME IN ADDITION TO YOUR 500MG AT BEDTIME FOR A TOTAL OF 750MG AT BEDTIME TAKE ONE TABLET BY MOUTH AT BEDTIME IN A DDITION TO YOUR 500MG AT BEDTIME FOR A TOTAL OF 750MG AT BEDTIME SOLD: 01/22/2020 [facility] 1 % 01/14/2020 12:00:00 AM EDT gel 400 APPLY A SMALL AMOUNT (2 GRAMS) TO LOWER BACK NEEDED FOR PAIN UP TO 4 TIMES A DAY APPLY A SMALL AMOUNT (2 GRAMS) TO LOWER BACK NEEDED FOR PAIN UP TO 4 TIMES A DAY SOLD: 01/14/2020 [facility] 4 mg 01/14/2020 12:00:00 AM EDT tablets,dose pack 21 TAKE BY MOUTH DIRECTED - HOLD CELEBREX DURING DOSEPAK USAGE TAKE BY MOUTH DIRECTED - HOLD CELEBREX DURING DOSEPAK USAGE SOLD: 01/14/2020 [facility] 200 mg/mL 01/08/2020 12:00:00 AM EDT oil 1 INJECT 1ML INTRAMUSCULARLY ONCE MAXIMUM DAILY DOSE = 1ML INJECT 1ML INTRAMUSCULARLY ONCE MAXIMUM DAILY DOSE = 1ML SOLD: 01/08/2020 [facility] Metformin hydrochloride 850 MG Oral Tablet METFORMIN HCL 01/06/2020 12:00:00 AM EDT tablet 174 TAKE ONE TABLET BY MOUTH TWI CE A DAY TAKE ONE TABLET BY MOUTH TWICE A DAY SOLD: 01/07/2020 [facility] Testosterone Cypionate 200 MG/ML Testosterone Cypionate 200 MG/ML 01/06/2020 12:00:00 AM EDT 1.0 {ml} active Testos terone Cypionate 200 MG/ML eCW1 ([facility]) Testosterone Cypionate 200 MG/ML Testosterone Cypionate 200 MG/ML 01/06/2020 12:00:00 AM EDT 1.0 {ml} active Testos terone Cypionate 200 MG/ML eCW1 ([facility]) Testosterone Cypionate 200 MG/ML Testosterone Cypionate 200 MG/ML 01/06/2020 12:00:00 AM EDT 1.0 {ml} active Testos terone Cypionate 200 MG/ML eCW1 ([facility]) Testosterone Cypionate 200 MG/ML Testosterone Cypionate 200 MG/ML 01/06/2020 12:00:00 AM EDT 1.0 {ml} active Testos terone Cypionate 200 MG/ML eCW1 ([facility]) Testosterone Cypionate 200 MG/ML Testosterone Cypionate 200 MG/ML 01/06/2020 12:00:00 AM EDT 1.0 {ml} active Testos terone Cypionate 200 MG/ML eCW1 ([facility]) Metformin hydrochloride 850 MG Oral Tablet METFORMIN HCL 01/06/2020 12:00:00 AM EDT tablet 180 TAKE ONE TABLET BY MOUTH TWI CE A DAY TAKE ONE TABLET BY MOUTH TWICE A DAY SOLD: 04/04/2020 [facility] Testosterone Cypionate 200 MG/ML Testosterone Cypionate 200 MG/ML 01/06/2020 12:00:00 AM EDT 1.0 {ml} active Testos terone Cypionate 200 MG/ML eCW1 ([facility]) 850 mg 01/06/2020 12:00:00 AM EDT tablet 6 TAKE ONE TABLET BY MOUTH TWICE A DAY TAKE ONE TABLET BY MOUTH TWICE A DAY SOLD: 01/06/2020 [facility] Testosterone Cypionate 200 MG/ML Testosterone Cypionate 200 MG/ML 01/06/2020 12:00:00 AM EDT 1.0 {ml} active Testos terone Cypionate 200 MG/ML eCW1 ([facility]) Testosterone Cypionate 200 MG/ML Testosterone Cypionate 200 MG/ML 01/06/2020 12:00:00 AM EDT 1.0 {ml} active Testos terone Cypionate 200 MG/ML eCW1 ([facility]) Escitalopram 20 MG Oral Tablet ESCITALOPRAM OXALATE 12/15/2019 1 2:00:00 AM EDT tablet 90 TAKE ONE TABLET BY MOUTH EVERY D AY TAKE ONE TABLET BY MOUTH EVERY DAY SOLD: 12/15/2019 [facility] Escitalopram 20 MG Oral Tablet ESCITALOPRAM OXALATE 12/15/2019 1 2:00:00 AM EDT tablet 90 TAKE ONE TABLET BY MOUTH EVERY D AY TAKE ONE TABLET BY MOUTH EVERY DAY SOLD: 03/12/2020 [facility] 850 mg 12/04/2019 12:00:00 AM EDT tablet 60 TAKE ONE TABLET BY MOUTH TWICE A DAY WITH MEALS TAKE ONE TABLET BY MOUTH TWICE A DAY WITH MEALS SOLD: 2019 [facility] 40 mg 12/02/2019 12:00:00 AM EDT tablet 90 TAKE ONE TABLET BY MOUTH TWICE A DAY TAKE ONE TABLET BY MOUTH TWICE A DAY SOLD: 12/03/2019 [facility] Furosemide 40 MG Oral Tablet furosemide (LASIX) 40 MG tablet furosemide (LASIX) 40 MG tablet 12/02/2019 12:00:00 AM EDT activ e TAKE ONE TABLET BY MOUTH TWICE A DAY [facility] 40 mg 12/02/2019 12:00:00 AM EDT tablet 90 TAKE ONE TABLET BY MOUTH TWICE A DAY TAKE ONE TABLET BY MOUTH TWICE A DAY SOLD: 01/15/2020 [facility] gabapentin 800 MG Oral Tablet gabapentin (NEURONTIN) 8 00 MG tablet gabapentin (NEURONTIN) 800 MG tablet 12/01/2019 12:00:00 AM EDT active TAKE ONE TABLET BY MOUTH FOUR TIMES A DAY MAXIMUM DAILY DOSE 4 [facility] 200 mg 11/18/2019 12:00:00 AM EDT capsule 30 TAKE ONE CAPSULE BY MOUTH EVERY DAY WITH FOOD MAXIMUM DAILY DOSE = 1 TAKE ONE CAPSULE BY MOUTH EVERY DAY WITH FOOD MAXIMUM DAILY DOSE = 1 SOLD: 01/12/2020 [facility] 200 mg 11/18/2019 12:00:00 AM EDT capsule 30 TAKE ONE CAPSULE BY MOUTH EVERY DAY WITH FOOD MAXIMUM DAILY DOSE = 1 TAKE ONE CAPSULE BY MOUTH EVERY DAY WITH FOOD MAXIMUM DAILY DOSE = 1 SOLD: 12/15/2019 [facility] 200 mg 11/18/2019 12:00:00 AM EDT capsule 30 TAKE ONE CAPSULE BY MOUTH EVERY DAY WITH FOOD MAXIMUM DAILY DOSE = 1 TAKE ONE CAPSULE BY MOUTH EVERY DAY WITH FOOD MAXIMUM DAILY DOSE = 1 SOLD: 11/18/2019 [facility] 250 mg 10/28/2019 12:00:00 AM EDT tablet extended release 24 hr 90 TAKE 1 TABLET BY MOUTH AT BEDTIME IN ADDITION TO YOUR 500MG AT BEDTIME FOR A TOTAL OF 750MG AT BEDTIME TAKE 1 TABLET BY MOUTH AT BEDTIME IN ADD ITION TO YOUR 500MG AT BEDTIME FOR A TOTAL OF 750MG AT BEDTIME SOLD: 10/28/2019 [facility] 24 HR Divalproex Sodium 500 MG Extended Release Oral Tablet DIVALPROEX SODIUM 10/28/2019 12:00:00 AM EDT tablet extended release 24 hr 90 TAKE 1 TABLET BY MOUTH AT BEDTIME IN ADDITION TO YOUR 250MG DOSE FOR A TOTAL OF 750MG AT BEDTIME TAKE 1 TABLET BY MOUTH AT BEDTIME IN ADDITION TO YOUR 250MG DOSE FOR A TOTAL OF 750MG AT BEDTIME SOLD: 01/25/2020 [facility] 500 mg 10/28/2019 12:00:00 AM EDT tablet extended release 24 hr 90 TAKE 1 TABLET BY MOUTH AT BEDTIME IN ADDITION TO YOUR 250MG DOSE FOR A TOTAL OF 750MG AT BEDTIME TAKE 1 TABLET BY MOUTH AT BEDTIME IN ADD ITION TO YOUR 250MG DOSE FOR A TOTAL OF 750MG AT BEDTIME SOLD: 10/28/2019 [facility] gabapentin 800 MG Oral Tablet GABAPENTIN 10/07/2019 12:00:00 AM EDT t ablet 120 TAKE ONE TABLET BY MOUTH FOUR TIMES A DAY MAXIMUM NAKUL Y DOSE = 4 TAKE ONE TABLET BY MOUTH FOUR TIMES A DAY MAXIMUM DAILY DOSE = 4 SOLD: 10/07/2019 [facility] gabapentin 800 MG Oral Tablet GABAPENTIN 10/07/2019 12:00:00 AM EDT t ablet 120 TAKE ONE TABLET BY MOUTH FOUR TIMES A DAY MAXIMUM NAKUL Y DOSE = 4 TAKE ONE TABLET BY MOUTH FOUR TIMES A DAY MAXIMUM DAILY DOSE = 4 SOLD: 12/01/2019 [facility] gabapentin 800 MG Oral Tablet GABAPENTIN 10/07/2019 12:00:00 AM EDT t ablet 120 TAKE ONE TABLET BY MOUTH FOUR TIMES A DAY MAXIMUM NAKUL Y DOSE = 4 TAKE ONE TABLET BY MOUTH FOUR TIMES A DAY MAXIMUM DAILY DOSE = 4 SOLD: 11/03/2019 [facility] clopidogrel 75 MG Oral Tablet clopidogrel (PLAVIX) 75 MG tablet clopidogrel (PLAVIX) 75 MG tablet 09/08/2019 12:00:00 AM EDT 75 mg Oral active Take 1 tablet (75 mg total) by mouth daily [facility] 40 mg 09/08/2019 12:00:00 AM EDT tablet 90 TAKE ONE TABLET BY MOUTH TWICE A DAY TAKE ONE TABLET BY MOUTH TWICE A DAY SOLD: 09/08/2019 [facility] 40 mg 09/08/2019 12:00:00 AM EDT tablet 90 TAKE ONE TABLET BY MOUTH TWICE A DAY TAKE ONE TABLET BY MOUTH TWICE A DAY SOLD: 10/21/2019 [facility] 50 mg 09/05/2019 12:00:00 AM EDT tablet 60 TAKE 1 TABLET BY MOUTH TWICE A DAY NEEDED FOR PAIN MAX DAILY DOSE=2 TABLETS TAKE 1 TABLET BY MOUTH TWICE A DAY NEEDED FOR PAIN MAX DAILY DOSE=2 TABLETS SOLD: 10/06/2019 [facility] 50 mg 09/05/2019 12:00:00 AM EDT tablet 60 TAKE 1 TABLET BY MOUTH TWICE A DAY NEEDED FOR PAIN MAX DAILY DOSE=2 TABLETS TAKE 1 TABLET BY MOUTH TWICE A DAY NEEDED FOR PAIN MAX DAILY DOSE=2 TABLETS SOLD: 09/08/2019 [facility] 50 mg 09/05/2019 12:00:00 AM EDT tablet 60 TAKE 1 TABLET BY MOUTH TWICE A DAY NEEDED FOR PAIN MAX DAILY DOSE=2 TABLETS TAKE 1 TABLET BY MOUTH TWICE A DAY NEEDED FOR PAIN MAX DAILY DOSE=2 TABLETS SOLD: 11/03/2019 [facility] Furosemide 20 MG Oral Tablet Furosemide 20 MG 08/26/2019 12:00:00 A M EDT 1.0 {tablet} active Furosemide 20 MG eCW1 ( [facility]) Furosemide 20 MG Oral Tablet Furosemide 20 MG 08/26/2019 12:00:00 A M EDT 1.0 {tablet} active Furosemide 20 MG eCW1 ( [facility]) Furosemide 20 MG Oral Tablet Furosemide 20 MG 08/26/2019 12:00:00 A M EDT 1.0 {tablet} active Furosemide 20 MG eCW1 ( [facility]) Furosemide 20 MG Oral Tablet Furosemide 20 MG 08/26/2019 12:00:00 A M EDT 1.0 {tablet} active Furosemide 20 MG eCW1 ( [facility]) Furosemide 20 MG Oral Tablet Furosemide 20 MG 08/26/2019 12:00:00 A M EDT 1.0 {tablet} active Furosemide 20 MG eCW1 ( [facility]) Furosemide 20 MG Oral Tablet Furosemide 20 MG 08/26/2019 12:00:00 A M EDT 1.0 {tablet} active Furosemide 20 MG eCW1 ( [facility]) Furosemide 20 MG Oral Tablet Furosemide 20 MG 08/26/2019 12:00:00 A M EDT 1.0 {tablet} active Furosemide 20 MG eCW1 ( [facility]) Furosemide 20 MG Oral Tablet Furosemide 20 MG 08/26/2019 12:00:00 A M EDT 1.0 {tablet} active Furosemide 20 MG eCW1 ( [facility]) Furosemide 20 MG Oral Tablet Furosemide 20 MG 08/26/2019 12:00:00 A M EDT 1.0 {tablet} active Furosemide 20 MG eCW1 ( [facility]) Furosemide 20 MG Oral Tablet Furosemide 20 MG 08/26/2019 12:00:00 A M EDT 1.0 {tablet} active Furosemide 20 MG eCW1 ( [facility]) 40 mg 08/22/2019 12:00:00 AM EDT tablet 10 TAKE ONE TABLET BY MOUTH EVERY DAY FOR 10 DAYS TAKE ONE TABLET BY MOUTH EVERY DAY FOR 10 DAYS SOLD: 020 [facility] 50 mg 08/13/2019 12:00:00 AM EDT tablet 60 TAKE 1 TABLET BY MOUTH TWICE A DAY NEEDED FOR PAIN MAX DAILY DOSE=2 TABLETS TAKE 1 TABLET BY MOUTH TWICE A DAY NEEDED FOR PAIN MAX DAILY DOSE=2 TABLETS SOLD: 08/13/2019 [facility] 200 mg 08/13/2019 12:00:00 AM EDT capsule 30 TAKE ONE CAPSULE BY MOUTH EVERY DAY WITH FOOD MAXIMUM DAILY DOSE = 1 CAPSULE TAKE ONE CAPSULE BY MOUTH EVERY DAY WITH FOOD MAXIMUM DAILY DOSE = 1 CAPSULE SOLD: 08/13/2019 [facility] 200 mg 08/13/2019 12:00:00 AM EDT capsule 30 TAKE ONE CAPSULE BY MOUTH EVERY DAY WITH FOOD MAXIMUM DAILY DOSE = 1 CAPSULE TAKE ONE CAPSULE BY MOUTH EVERY DAY WITH FOOD MAXIMUM DAILY DOSE = 1 CAPSULE SOLD: 10/06/2019 [facility] 200 mg 08/13/2019 12:00:00 AM EDT capsule 30 TAKE ONE CAPSULE BY MOUTH EVERY DAY WITH FOOD MAXIMUM DAILY DOSE = 1 CAPSULE TAKE ONE CAPSULE BY MOUTH EVERY DAY WITH FOOD MAXIMUM DAILY DOSE = 1 CAPSULE SOLD: 09/08/2019 [facility] tramadol hydrochloride 50 MG Oral Tablet traMADol (ULT ESTELLA) 50 MG tablet traMADol (ULTRAM) 50 MG tablet 08/13/2019 12:00:00 AM EDT active TAKE 1 TABLET BY MOUTH TWICE A DAY NEEDED FOR PAIN MAX DAILY DOSE 2 TABLETS [facility] 75 mg 08/13/2019 12:00:00 AM EDT tablet 90 TAKE ONE TABLET BY MOUTH EVERY DAY TAKE ONE TABLET BY MOUTH EVERY DAY SOLD: 08/13/2019 [facility] 75 mg 08/13/2019 12:00:00 AM EDT tablet 90 TAKE ONE TABLET BY MOUTH EVERY DAY TAKE ONE TABLET BY MOUTH EVERY DAY SOLD: 11/08/2019 [facility] 0.4 mg 08/10/2019 12:00:00 AM EDT capsule 90 TAKE ONE CAPSULE BY MOUTH ONCE A DAY 30 MINUTES AFTER THE SAME MEAL EACH DAY TAKE ONE CAPSULE BY MOUTH ONCE A DAY 30 MINUTES AFTER THE SAME MEAL EACH DAY SOLD: 05/02/2020 [facility] 0.4 mg 08/10/2019 12:00:00 AM EDT capsule 90 TAKE ONE CAPSULE BY MOUTH ONCE A DAY 30 MINUTES AFTER THE SAME MEAL EACH DAY TAKE ONE CAPSULE BY MOUTH ONCE A DAY 30 MINUTES AFTER THE SAME MEAL EACH DAY SOLD: 08/10/2019 [facility] 0.4 mg 08/10/2019 12:00:00 AM EDT capsule 90 TAKE ONE CAPSULE BY MOUTH ONCE A DAY 30 MINUTES AFTER THE SAME MEAL EACH DAY TAKE ONE CAPSULE BY MOUTH ONCE A DAY 30 MINUTES AFTER THE SAME MEAL EACH DAY SOLD: 11/08/2019 [facility] 0.4 mg 08/10/2019 12:00:00 AM EDT capsule 90 TAKE ONE CAPSULE BY MOUTH ONCE A DAY 30 MINUTES AFTER THE SAME MEAL EACH DAY TAKE ONE CAPSULE BY MOUTH ONCE A DAY 30 MINUTES AFTER THE SAME MEAL EACH DAY SOLD: 02/04/2020 [facility] 40 mg 08/09/2019 12:00:00 AM EDT tablet 90 TAKE ONE TABLET BY MOUTH EVERY DAY TAKE ONE TABLET BY MOUTH EVERY DAY SOLD: 08/09/2019 [facility] carvedilol 12.5 MG Oral Tablet CARVEDILOL 08/09/2019 12:00:00 AM EDT tablet 180 TAKE ONE TABLET BY MOUTH TWICE A DAY TAKE ONE TABLET BY MOUT H TWICE A DAY SOLD: 08/09/2019 [facility] 40 mg 08/09/2019 12:00:00 AM EDT tablet 90 TAKE ONE TABLET BY MOUTH EVERY DAY TAKE ONE TABLET BY MOUTH EVERY DAY SOLD: 11/05/2019 [facility] carvedilol 12.5 MG Oral Tablet CARVEDILOL 08/09/2019 12:00:00 AM EDT tablet 180 TAKE ONE TABLET BY MOUTH TWICE A DAY TAKE ONE TABLET BY MOUT H TWICE A DAY SOLD: 11/05/2019 [facility] 20 mg 08/07/2019 12:00:00 AM EDT tablet,delayed release (DR/EC) 180 TAKE TWO TABLETS BY MOUTH ONCE A DAY TAKE TWO TABLETS BY MOUTH ONCE A DAY SOLD: 01/30/2020 [facility] pantoprazole 20 MG Delayed Release Oral Tablet PANTOPRAZOLE SODIUM 08/07/2019 12:00:00 AM EDT tablet,delayed release (DR/EC) 180 T RONAN TWO TABLETS BY MOUTH ONCE A DAY TAKE TWO TABLETS BY MOUTH ONCE A DAY SOLD: 08/07/2019 [facility] 20 mg 08/07/2019 12:00:00 AM EDT tablet,delayed release (DR/EC) 180 TAKE TWO TABLETS BY MOUTH ONCE A DAY TAKE TWO TABLETS BY MOUTH ONCE A DAY SOLD: 11/03/2019 [facility] Escitalopram 20 MG Oral Tablet ESCITALOPRAM OXALATE 06/25/2019 1 2:00:00 AM EDT tablet 90 TAKE ONE TABLET BY MOUTH EVERY D AY TAKE ONE TABLET BY MOUTH EVERY DAY SOLD: 09/21/2019 [facility] Escitalopram 20 MG Oral Tablet ESCITALOPRAM OXALATE 06/25/2019 1 2:00:00 AM EDT tablet 90 TAKE ONE TABLET BY MOUTH EVERY D AY TAKE ONE TABLET BY MOUTH EVERY DAY SOLD: 06/25/2019 [facility] gabapentin 800 MG Oral Tablet GABAPENTIN 05/12/2019 12:00:00 AM EST t ablet 120 TAKE 1 TABLET BY MOUTH FOUR TIMES A DAY MAXIMUM DAILY DOSE = 4 TAKE 1 TABLET BY MOUTH FOUR TIMES A DAY MAXIMUM DAILY DOSE = 4 SOLD: 07/04/2019 [facility] gabapentin 800 MG Oral Tablet GABAPENTIN 05/12/2019 12:00:00 AM EST t ablet 120 TAKE 1 TABLET BY MOUTH FOUR TIMES A DAY MAXIMUM DAILY DOSE = 4 TAKE 1 TABLET BY MOUTH FOUR TIMES A DAY MAXIMUM DAILY DOSE = 4 SOLD: 05/12/2019 [facility] gabapentin 800 MG Oral Tablet GABAPENTIN 05/12/2019 12:00:00 AM EST t ablet 120 TAKE 1 TABLET BY MOUTH FOUR TIMES A DAY MAXIMUM DAILY DOSE = 4 TAKE 1 TABLET BY MOUTH FOUR TIMES A DAY MAXIMUM DAILY DOSE = 4 SOLD: 06/08/2019 [facility] gabapentin 800 MG Oral Tablet GABAPENTIN 05/12/2019 12:00:00 AM EST t ablet 120 TAKE 1 TABLET BY MOUTH FOUR TIMES A DAY MAXIMUM DAILY DOSE = 4 TAKE 1 TABLET BY MOUTH FOUR TIMES A DAY MAXIMUM DAILY DOSE = 4 SOLD: 08/01/2019 [facility] 250 mg 05/07/2019 12:00:00 AM EST tablet extended release 24 hr 90 TAKE ONE TABLET BY MOUTH DAILY AT BEDTIME ALONG WITH 500MG TABLET TAKE ONE TABLET BY MOUTH DAILY AT BEDTIME ALONG WITH 500MG TABLET SOLD: 05/07/2019 [facility] 250 mg 05/07/2019 12:00:00 AM EST tablet extended release 24 hr 90 TAKE ONE TABLET BY MOUTH DAILY AT BEDTIME ALONG WITH 500MG TABLET TAKE ONE TABLET BY MOUTH DAILY AT BEDTIME ALONG WITH 500MG TABLET SOLD: 08/01/2019 [facility] 500 mg 05/07/2019 12:00:00 AM EST tablet extended release 24 hr 90 TAKE 1 TAB. BY MOUTH DAILY AT BED PLUS THE 250MG DOSE FOR 750MG TOTAL DOSE TAKE 1 TAB. BY MOUTH DAILY AT BED PLUS THE 250MG DOSE FOR 750MG TOTAL DOSE SOLD: 08/01/2019 [facility] 500 mg 05/07/2019 12:00:00 AM EST tablet extended release 24 hr 90 TAKE 1 TAB. BY MOUTH DAILY AT BED PLUS THE 250MG DOSE FOR 750MG TOTAL DOSE TAKE 1 TAB. BY MOUTH DAILY AT BED PLUS THE 250MG DOSE FOR 750MG TOTAL DOSE SOLD: 05/07/2019 [facility] 200 mg 05/01/2019 12:00:00 AM EST capsule 30 TAKE 1 CAPSULE BY MOUTH ONCE DAILY WITH FOOD MAXIMUM DAILY DOSE = 1 TAKE 1 CAPSULE BY MOUTH ONCE DAILY WITH FOOD MAXIMUM DAILY DOSE = 1 SOLD: 05/01/2019 [facility] 200 mg 05/01/2019 12:00:00 AM EST capsule 30 TAKE 1 CAPSULE BY MOUTH ONCE DAILY WITH FOOD MAXIMUM DAILY DOSE = 1 TAKE 1 CAPSULE BY MOUTH ONCE DAILY WITH FOOD MAXIMUM DAILY DOSE = 1 SOLD: 06/27/2019 [facility] 200 mg 05/01/2019 12:00:00 AM EST capsule 30 TAKE 1 CAPSULE BY MOUTH ONCE DAILY WITH FOOD MAXIMUM DAILY DOSE = 1 TAKE 1 CAPSULE BY MOUTH ONCE DAILY WITH FOOD MAXIMUM DAILY DOSE = 1 SOLD: 06/01/2019 [facility] 600 mg 04/22/2019 12:00:00 AM EST tablet 120 TAKE 1 TABLET BY MOUTH 4 TIMES A DAY TAKE 1 TABLET BY MOUTH 4 TIMES A DAY SOLD: 04/22/2019 [facility] 50 mg 04/22/2019 12:00:00 AM EST tablet 60 TAKE ONE TABLET BY MOUTH TWICE A DAY NEEDED FOR PAIN MAXIMUM DAILY DOSE = 2 TABLETS TAKE ONE TABLET BY MOUTH TWICE A DAY NEEDED FOR PAIN MAXIMUM DAILY DOSE = 2 TABLETS SOLD: 05/19/2019 [facility] 50 mg 04/22/2019 12:00:00 AM EST tablet 60 TAKE ONE TABLET BY MOUTH TWICE A DAY NEEDED FOR PAIN MAXIMUM DAILY DOSE = 2 TABLETS TAKE ONE TABLET BY MOUTH TWICE A DAY NEEDED FOR PAIN MAXIMUM DAILY DOSE = 2 TABLETS SOLD: 04/22/2019 [facility] 200 mg 02/08/2019 12:00:00 AM EST capsule 30 TAKE ONE CAPSULE BY MOUTH EVERY DAY WITH FOOD TAKE ONE CAPSULE BY MOUTH EVERY DAY WITH FOOD SOLD: 04/04/2019 [facility] carvedilol 12.5 MG Oral Tablet CARVEDILOL 01/21/2019 12:00:00 AM EDT tablet 180 TAKE ONE TABLET BY MOUTH TWICE A DAY TAKE ONE TABLET BY MOUT H TWICE A DAY SOLD: 04/17/2019 [facility] 40 mg 01/03/2019 12:00:00 AM EDT tablet 90 TAKE 1 TABLET BY MOUTH ONCE A DAY TAKE 1 TABLET BY MOUTH ONCE A DAY SOLD: 04/02/2019 [facility] 850 mg 10/29/2018 12:00:00 AM EDT tablet 60 TAKE ONE TABLET BY MOUTH TWICE A DAY WITH MEALS TAKE ONE TABLET BY MOUTH TWICE A DAY WITH MEALS SOLD: 2019 [facility] 850 mg 10/29/2018 12:00:00 AM EDT tablet 60 TAKE ONE TABLET BY MOUTH TWICE A DAY WITH MEALS TAKE ONE TABLET BY MOUTH TWICE A DAY WITH MEALS SOLD: 2019 [facility] 850 mg 10/29/2018 12:00:00 AM EDT tablet 60 TAKE ONE TABLET BY MOUTH TWICE A DAY WITH MEALS TAKE ONE TABLET BY MOUTH TWICE A DAY WITH MEALS SOLD: 2019 [facility] pantoprazole 20 MG Delayed Release Oral Tablet PANTOPRAZOLE SODIUM 10/22/2018 12:00:00 AM EDT tablet,delayed release (DR/EC) 180 T RONAN TWO TABLETS BY MOUTH EVERY DAY TAKE TWO TABLETS BY MOUTH EVERY DAY SOLD: 04/14/2019 [facility] 20.25 mg/1.25 gram (1.62 %) 10/21/2018 12:00:00 AM EDT gel in metered-dose pump 75 APPLY TWO PUMPS TO T HE SKIN EVERY MORNING DIRECTED MAXIMUM DAILY DOSE = 2 PUMPS APPLY TWO PUMPS TO THE SKIN EVERY MORNIN G DIRECTED MAXIMUM DAILY DOSE = 2 PUMPS SOLD: 03/16/2019 [facility] 75 mg 08/30/2018 12:00:00 AM EDT tablet 90 TAKE ONE TABLET BY MOUTH ONCE DAILY TAKE ONE TABLET BY MOUTH ONCE DAILY SOLD: 05/19/2019 [facility] 0.4 mg 08/27/2018 12:00:00 AM EDT capsule 90 TAKE ONE CAPSULE BY MOUTH ONCE A DAY 30 MINUTES AFTER THE SAME MEAL EACH DAY TAKE ONE CAPSULE BY MOUTH ONCE A DAY 30 MINUTES AFTER THE SAME MEAL EACH DAY SOLD: 05/15/2019 [facility] gabapentin 400 MG Oral Capsule gabapentin (NEURONTIN) 400 MG capsule gabapentin (NEURONTIN) 400 MG capsule 800 mg Oral aborted Take 800 mg by mouth 3 (three) times a day To be taken with 600mg gabapentin [facility] Insurance Providers Payer name Policy type / Coverage type Policy ID Covered alliance party ID Covered alliance party's relationship to chaves Policy Chaves Plan Information [facility] [id number] SP [id number] [employer] [facility] [id number] SP [id number] [employer] MEDICARE [id number] MEDICARE [id number] HUMANA MEDICARE [id number] Paz [id number] MEDICARE [id number] Paz [id number] MEDICAID [facility] OPTIONS [id number] SP [id number] MEDICARE [id number] SP [id number] J66 [facility] OPTIONS [id number] SP [id number] [facility] [id number] Paz [id number] [facility] [id number] ANSI-Medicare Part B [id number] ANSI-Medicare Part B [id number] ANSI-Commercial [id number] [facility] Health Care Options [facility] Part B [id number] Self [id number] Medicare Natl Gov't Servi Medicare Primary [id number] Self [id number] ANSI-Medicare Part B [id number] ANSI-Medicare Part B [id number] ANSI-Commercial [id number] ANSI-Medicare Part B [id number] ANSI-Medicare Part B [id number] ANSI-Commercial [id number] ANSI-Commercial [id number] ANSI-Medicare Part B [id number] ANSI-Medicare Part B [id number] [facility] [id number] Paz [id number] MEDICARE [id number] Paz [id number] J66 [facility] C[facility] OPTIONS [id number] SP [id number] MEDICARE [id number] SP [id number] ANSI-Commercial [id number] ANSI-Medicare Part B [id number] ANSI-Medicare Part B [id number] [facility] [id number] Self [id number] MEDICARE A [id number] Self [id number] A [facility] CARE OPTIONS [id number] SP [id number] ANSI-Commercial [id number] ANSI-Medicare Part B [id number] ANSI-Medicare Part B [id number] [facility] OPTIONS [id number] SP [id number] ANSI-Medicare Part B [id number] ANSI-Commercial [id number] ANSI-Medicare Part B [id number] ANSI-Medicare Part B [id number] ANSI-Medicare Part B [id number] ANSI-Commercial [id number] ANSI-Commercial [id number] ANSI-Medicare Part B [id number] ANSI-Medicare Part B [id number] ANSI-Medicare Part B [id number] ANSI-Medicare Part B [id number] ANSI-Commercial [id number] ANSI-Medicare Part B [id number] ANSI-Medicare Part B [id number] ANSI-Commercial [id number] MEDICARE [id number] A ANSI-Medicare Part B [id number] ANSI-Medicare Part B [id number] ANSI-Commercial [id number] AARP O [id number] S [id number] MEDICARE C [id number] S [id number] A MEDICARE [id number] SP [id number] A MEDICARE [id number] [employer] [id number] SP [id number] 1988 [employer]IONS [id number] SP [id number] 1988 [employer]IONS [id number] SP [id number] [facility] [id number] Paz [id number] MEDICARE [id number] Paz [id number] A [facility] OPTIONS UNAVAILABLE UNAVAILABLE AARP O [id number] S [id number] [employer] MEDICARE [id number] Paz [id number] [employer] PPO [id number] SP [id number] Medicare Part B [facility] [id number] [facility] HMO/PPO/POS [id number] Problems, Conditions, and Diagnoses Code Display Name Description Problem Type Effective Dates Data Source(s) I10 Hypertension Hypertension [id number] 02/20/2020 12:00:00 A M EST [facility] E11.40 [id number] 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, without long- term current use of insulin Problem 05/07/2019 12:00:[address] 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 Problem 04/08/2019 12:00:00 AM EST eCW1 ([facility]) I25.10 [id number] Atherosclerotic hear t disease of [place] coronary artery without angina pectoris Problem 04/08/2019 12:00:00 AM EST eCW1 ([facility]) E78.2 Mixed hyperlipidemia Mixed hyperlipidemia Diagnosis 02/24/2020 08:56:34 AM EST [facility] I10 Essential (primary) hypertension Essential (primary) h ypertension Diagnosis 02/24/2020 08:56:34 AM EST [facility] Z98.61 Coronary angioplasty status Coronary angioplasty statu s Diagnosis 02/24/2020 08:56:34 AM EST [facility] I25.5 Ischemic cardiomyopathy Ischemic cardiomyopathy Diagno sis 02/24/2020 08:56:34 AM EST [facility] I35.0 Nonrheumatic aortic (valve) stenosis Nonrheumati c aortic (valve) stenosis Diagnosis 02/24/2020 08:56:34 AM EST [facility] E11.59 Type 2 diabetes mellitus with other circ ulatory complications Type 2 diabetes mellitus with other circ Diagnosis 11/25/2019 09:22:11 AM EDT [facility] R06.02 Shortness of breath Shortness of breath Diagnosis 0 08/21/2019 03:34:06 PM EDT [facility] Surgeries/Procedures Procedure Description Date Indications Data Source(s) ECG ROUTINE ECG W/LEAST 12 LDS W/I&R POCT AMB EKG Routine 02/24/2020 9:13 AM EST Coronary angioplasty status 02/24/2020 02:13:00 PM EST Coron aj angioplasty status [facility] Coronary angioplasty status Injection: Testosterone Cypionate 200mg IM 01/14/2020 12:00:00 AM EDT eCW1 ([facility]) FALLS RISK ASSESSMENT DOCUMENTED 07/15/2019 12:00:00 A M EDT MEDENT ([facility]) PHYSICIAN TELEPHONE EVALUATION 11-20 MIN 06/26/2019 12 :00:00 AM EDT eCW1 ([facility]) Office Visit, Est Pt., Level 2 FC 04/08/2019 12:00:00 AM EST eCW1 ([facility]) Office Visit, Est Pt., Level 4 PC 04/08/2019 12:00:00 AM EST eCW1 ([facility]) Results ID Date Data Source [id number] 02/09/2020 04:25:00 PM EST [facility] Name Value Range Interpretation Code Description Data Rima rce(s) Supporting Document(s) SARS-CoV-2 (COVID-19) [facility] This lab was ordered by MAMIE [facility], [employer] and reported by [employer] [facility]. ID Date Data Source TESTOSTERONE 02/05/2020 12:00:00 AM EST eCW1 ([facility]) Name Value Range Interpretation Code Description Data Rima rce(s) Supporting Document(s) [id number] TESTOSTERONE eCW1 ([facility]) ID Date Data Source [id number] 09/15/2019 09:15:00 AM EDT [facility] Name Value Range Interpretation Code Description Data Rima rce(s) Supporting Document(s) SARS-CoV-2 (COVID-19) [facility] This lab was ordered by [facility] [employer] and reported by [facility] [employer] [facility]. ID Date Data Source Basic Metabolic Profile (BMP) 04/08/2019 12:00:00 AM EST eCW 1 ([facility]) Name Value Range Interpretation Code Description Data Rima rce(s) Supporting Document(s) 18 7-18 BLOOD UREA NITROGEN eCW1 ([facility]) > 60.0 >42 GLOMERULAR FILTRATION RATE eCW 1 ([facility]) 0.98 0.70-1.30 CREATININE FOR GFR eCW1 ([facility]) 109 70-100 GLUCOSE, FASTING eCW1 ([facility]) 4.8 3.5-5.1 POTASSIUM SERUM eCW1 ([facility]) 108 98-107 CHLORIDE LEVEL eCW1 ([facility]) 140 136-145 SODIUM LEVEL eCW1 ([facility]) 25 21-32 CARBON DIOXIDE LEVEL eCW1 ([facility]) 8.9 8.8-10.2 CALCIUM LEVEL eCW1 ([facility]) ID Date Data Source [id number] 04/08/2019 12:00:00 AM EST eCW1 ([facility]) Name Value Range Interpretation Code Description Data Rima rce(s) Supporting Document(s) Hemoglobin A1c/Hemoglobin.total in Blood 6.9 HEMOGLOBIN A1c eCW1 ([facility]) Procedure Social History Code Duration Value Status Description Data Source(s ) Smoking 01/14/2020 12:00:00 AM EDT Never Smoker completed Never S moker eCW1 ([facility]) Smoking 01/14/2020 12:00:00 AM EDT Never Smoker completed Never S moker eCW1 ([facility]) Smoking 01/14/2020 12:00:00 AM EDT Never Smoker completed Never S moker eCW1 ([facility]) Smoking 01/14/2020 12:00:00 AM EDT Never Smoker completed Never S moker eCW1 ([facility]) Smoking 01/14/2020 12:00:00 AM EDT Never Smoker completed Never S moker eCW1 ([facility]) Smoking 01/14/2020 12:00:00 AM EDT Never Smoker completed Never S moker eCW1 ([facility]) Smoking 01/06/2020 12:00:00 AM EDT Never Smoker completed Never S moker eCW1 ([facility]) Smoking 01/06/2020 12:00:00 AM EDT Never Smoker completed Never S moker eCW1 ([facility]) Alcohol intake 11/25/2019 12:00:00 AM EDT Yes completed [facility] Smoking 11/25/2019 12:00:00 AM EDT Never smoker completed Never s moker [facility] Smoking 08/26/2019 12:00:00 AM EDT Never Smoker completed Never S moker eCW1 ([facility]) Smoking 08/26/2019 12:00:00 AM EDT Never Smoker completed Never S moker eCW1 ([facility]) Vital Signs ID Date Data Source UNK Name Value Range Interpretation Code Description Data Source(s) [place] body weight 166 [lb_av] 166 [lb_av] MEDEN T ([facility] Body mass index (BMI) [Ratio] 36.0 kg/m2 36.0 k g/m2 MEDENT ([facility] Body weight 251.00 [lb_av] 251.00 [lb_av] MEDEN T ([facility]) Body height 70 [in_i] 70 [in_i] MEDENT ([facility]) 5'10" Respiratory rate 12 /min 12 /min MEDENT ( [facility]) Body mass index (BMI) [Ratio] 36.16 kg/m2 36.16 kg/m2 [facility] Body weight 114.306 kg 114.306 kg [facility] Body height 177.8 cm 177.8 cm [facility] Respiratory rate 16 /min 16 /min [facility] Heart rate 64 /min 64 /min [facility] Diastolic blood pressure 80 mm[Hg] 80 mm[Hg] [facility] Systolic blood pressure 120 mm[Hg] 120 mm[Hg] [facility] Heart rate 67 /min 67 /min eCW1 ([facility]) Body mass index (BMI) [Ratio] 36.94 kg/m2 36.94 kg/m2 W1 ([facility]) Body height 69.25 [in_i] 69.25 [in_i] W1 ([facility]) Body weight 252 [lb_av] 252 [lb_av] eCW1 ([facility]) Diastolic blood pressure 64 mm[Hg] 64 mm[Hg] eCW1 ([facility]) Systolic blood pressure 122 mm[Hg] 122 mm[Hg] e CW1 ([facility]) Body temperature 96.4 [degF] 96.4 [degF] eCW1 ( [facility]) Respiratory rate 18 /min 18 /min eCW1 ([facility]) Diastolic blood pressure mm[Hg] eCW1 ([facility]) Systolic blood pressure 132 mm[Hg] 132 mm[Hg] e CW1 ([facility]) Body temperature 97.9 [degF] 97.9 [degF] eCW1 ( [facility]) Respiratory rate 19 /min 19 /min eCW1 ([facility]) Heart rate 75 /min 75 /min eCW1 ([facility]) Body mass index (BMI) [Ratio] 36.65 kg/m2 36.65 kg/m2 eCW1 ([facility]) Body height 69.25 [in_i] 69.25 [in_i] eCW1 ([facility]) Body weight 250 [lb_av] 250 [lb_av] eCW1 ([facility]) [place] body weight 166 [lb_av] 166 [lb_av] MEDEN T ([facility] ) Body mass index (BMI) [Ratio] 36.0 kg/m2 36.0 k g/m2 MEDENT ([facility] Body weight 251.00 [lb_av] 251.00 [lb_av] MEDEN T ([facility] ) Body height 70 [in_i] 70 [in_i] MEDENT ([facility] ) 5'10" Respiratory rate 12 /min 12 /min MEDENT ( [facility] ) Diastolic blood pressure 73 mm[Hg] 73 mm[Hg] eCW1 ([facility]) Systolic blood pressure 150 mm[Hg] 150 mm[Hg] e CW1 ([facility]) Body temperature 96.8 [degF] 96.8 [degF] eCW1 ( [facility]) Respiratory rate 18 /min 18 /min eCW1 ([facility]) Heart rate 62 /min 62 /min eCW1 ([facility]) Body mass index (BMI) [Ratio] 36.65 kg/m2 36.65 kg/m2 eCW1 ([facility]) Body height 69.25 [in_i] 69.25 [in_i] eCW1 ([facility]) Body weight 250 [lb_av] 250 [lb_av] eCW1 ([facility]) Body mass index (BMI) [Ratio] 33.0 kg/m2 33.0 k g/m2 MEDENT ([facility] ) Body weight 230.00 [lb_av] 230.00 [lb_av] MEDEN T ([facility] ) Body height 70 [in_i] 70 [in_i] MEDENT ([facility], ) 5'10" Respiratory rate 12 /min 12 /min MEDENT ( [facility]) Body mass index (BMI) [Ratio] 33.0 kg/m2 33.0 k g/m2 MEDENT ([facility]) Body weight 230.00 [lb_av] 230.00 [lb_av] MEDEN T ([facility]) Body height 70 [in_i] 70 [in_i] MEDENT ([facility]) 5'10" Respiratory rate 12 /min 12 /min MEDENT ( [facility]) Heart rate 72 /min 72 /min MEDENT ([facility]) Diastolic blood pressure 62 mm[Hg] 62 mm[Hg] MEDENT ([facility]) Systolic blood pressure 116 mm[Hg] 116 mm[Hg] M EDENT ([facility]) Diastolic blood pressure 61 mm[Hg] 61 mm[Hg] eCW1 ([facility]) Systolic blood pressure 131 mm[Hg] 131 mm[Hg] e CW1 ([facility]) Body temperature 96.7 [degF] 96.7 [degF] eCW1 ( [facility]) Respiratory rate 18 /min 18 /min eCW1 ([facility]) Heart rate 67 /min 67 /min eCW1 ([facility]) Body mass index (BMI) [Ratio] 36.44 kg/m2 36.44 kg/m2 eCW1 ([facility]) Body height 69.25 [in_us] 69.25 [in_us] eCW1 ([facility]) Body weight Measured 248.6 [lb_av] 248.6 [lb_av ] eCW1 ([facility]) Patient Treatment Plan of Care Planned Activity Planned Date Details Description Data Source (s) Syringe 22G X 1" 3 ML 02/17/2020 12:00:00 AM EST eCW1 ([facility]) Needle (Disp) 18G X 1-1/2" 02/17/2020 12:00:00 AM EST eCW1 ([facility]) Syringe 22G X 1" 3 ML 02/17/2020 12:00:00 AM EST eCW1 ([facility]) Needle (Disp) 18G X 1-1/2" 02/17/2020 12:00:00 AM EST eCW1 ([facility]) testosterone cypionate (DEPOTESTOTERONE CYPIONATE) 200 MG/ML injection 02/17/2020 12:00:00 AM EST [facility] Syringe 22G X 1" 3 ML 02/17/2020 12:00:00 AM EST eCW1 ([facility]) Needle (Disp) 18G X 1-1/2" 02/17/2020 12:00:00 AM EST eCW1 ([facility]) Testosterone Cypionate 200 MG/ML 01/06/2020 12:00:00 AM EDT eCW1 ([facility]) Testosterone Cypionate 200 MG/ML 01/06/2020 12:00:00 AM EDT eCW1 ([facility]) Testosterone Cypionate 200 MG/ML 01/06/2020 12:00:00 AM EDT eCW1 ([facility]) Testosterone Cypionate 200 MG/ML 01/06/2020 12:00:00 AM EDT eCW1 ([facility]) Testosterone Cypionate 200 MG/ML 01/06/2020 12:00:00 AM EDT eCW1 ([facility]) Testosterone Cypionate 200 MG/ML 01/06/2020 12:00:00 AM EDT eCW1 ([facility]) Furosemide 40 MG Oral Tablet 12/02/2019 12:00:00 AM EDT [facility] gabapentin 800 MG Oral Tablet 12/01/2019 12:00:00 AM EDT [facility] clopidogrel 75 MG Oral Tablet 09/08/2019 12:00:00 AM EDT [facility] tramadol hydrochloride 50 MG Oral Tablet 08/13/2019 12:00:00 AM EDT [facility] gabapentin 400 MG Oral Capsule [facility]
[2020-05-08] MEDS ORDERED: GABA800T4 PO (20:35)
[2020-05-08] MEDS ORDERED: PANT20TA6 PO (20:35)
[2020-05-08] MEDS ORDERED: TRAM37.53 PO (20:35)
[2020-05-08] MEDS ORDERED: SERT50TA29 PO (20:35)
[2020-05-08] MEDS ORDERED: FURO40TA2 PO (20:35)
[2020-05-08] MEDS ORDERED: DIVA250T7 PO (20:35)
[2020-05-08] MEDS ORDERED: METF850T4 PO (20:35)
[2020-05-08] MEDS ORDERED: DIVA500T9 PO (20:35)
[2020-05-08] MEDS ORDERED: CELE1CAP9 PO (20:35)
[2020-05-08] MEDS ORDERED: LORazepam 2 MG/ML VIAL IV STA (21:00)
--- NOTE | 2020-05-08 21:11 | REPVR ---
PROCEDURE INFORMATION: Exam: XR Chest, 1 View Exam date and time: 05/08/2020 8:53 PM Age: 80 years old Clinical indication: Chest pain TECHNIQUE: Imaging protocol: XR of the chest Views: 1 view. COMPARISON: CR Chest, 2 view PA, Lat 08/25/2015 12:09 PM FINDINGS: Lungs: There is decreased inflation of the lungs. There are no interval infiltrates. Pleural spaces: Unremarkable. No pleural effusion. No pneumothorax. Heart/Mediastinum: The heart and mediastinum are unchanged. Bones/joints: Degenerative spurring is noted in the acromioclavicular joints bilaterally. IMPRESSION: Stable poor inspiratory chest since 08/25/2015. No acute interval process is identified. Electronically signed by: Mohit Craig On 05/08/2020 21:10:25 PM
[2020-05-08 21:13] LABS: BASO # 0.1 10^3/uL (0.0-0.2); BASO % 0.7 % (0.0-1.0); EOS # 0.3 10^3/uL (0.0-0.5); EOS % 2.7 % (0.0-3.0); HEMATOCRIT 41.5 % (42.0-52.0); LYMPH # 1.5 10^3/uL (1.5-5.0); LYMPH % 12.8 % (24.0-44.0); MEAN CORPUSCULAR HEMOGLOBIN 26.1 pg (27.0-33.0); MEAN CORPUSCULAR HGB CONC 31.3 g/dl (32.0-36.5); MEAN CORPUSCULAR VOLUME 83.2 fl (80.0-96.0); MONO # 0.9 10^3/uL (0.0-0.8); MONO % 7.1 % (2.0-8.0); NEUTROPHILS # 9.2 10^3/uL (1.5-8.5); NEUTROPHILS % 76.2 % (36.0-66.0); PLATELET COUNT, AUTOMATED 230 10^3/uL (150-450); RED BLOOD COUNT 4.99 10^6/uL (4.30-6.10); WHITE BLOOD COUNT 12.1 10^3/uL (4.0-10.0)
--- OUTSIDE RECORDS SUMMARY | 2020-05-08 21:26 | CCD ---
Author Author [facility] Organization [facility] Address Unknown Phone Unavailable Care Team Providers Care Boom Operator Name Role Phone Chrissie Casillas MD Unavailable [...] anderson MD Unavailable Unavailable [employer] Unavailable Unavailable [employer] Unavailable Unavailable [employer] Unavailable Unavailable [employer] Unavailable [...] Young Unavailable Rachell BO, Ignacio Rai Unavailable Everton, N Shemar LIFT MANAGER Unavailable Unavailable Ca, N Shemar LIFT MANAGER Unavailable Unavailable [place], N Shemar LIFT MANAGER Unavailable Unavailable Ca, N Shemar LIFT MANAGER Unavailable Unavailable Ca, N Shemar LIFT MANAGER Unavailable Unavailable Ca, N Shemar LIFT MANAGER Unavailable Unavailable [place], N Shemar LIFT MANAGER Unavailable Unavailable [place], N Shemar LIFT MANAGER Unavailable Unavailable [place], N Shemar LIFT MANAGER Unavailable Unavailable Ca, N Shemar LIFT MANAGER Unavailable Unavailable Ca, N Shemar LIFT MANAGER Unavailable Unavailable [place], N Shemar LIFT MANAGER Unavailable Unavailable Ca, N Shemar LIFT MANAGER Unavailable Unavailable Ca, N Shemar LIFT MANAGER Unavailable Unavailable Ca, N Shemar LIFT MANAGER Unavailable Unavailable Ca, N Shemar LIFT MANAGER Unavailable Unavailable Ca, N Shemar LIFT MANAGER Unavailable Unavailable Everton, N Shemar LIFT MANAGER Unavailable Unavailable Ever[place], N Shemar LIFT MANAGER Unavailable Unavailable Ever[place], N Shemar LIFT MANAGER Unavailable Unavailable [place], N Shemar LIFT MANAGER Unavailable Unavailable Ca, N Shemar LIFT MANAGER Unavailable Unavailable Ca, N Shemar LIFT MANAGER Unavailable Unavailable Ca, N Shemar LIFT MANAGER Unavailable Unavailable Ca, N Shemar LIFT MANAGER Unavailable Unavailable Ca, N Shemar LIFT MANAGER Unavailable Unavailable Ca, N Shemar LIFT MANAGER Unavailable Unavailable Ca, N Shemar LIFT MANAGER Unavailable Unavailable Ca, N Shemar LIFT MANAGER Unavailable Unavailable Ca, N Shemar LIFT MANAGER Unavailable Unavailable Ever[place], N Shemar LIFT MANAGER Unavailable Unavailable Ivan Hansen MD Unavailable Unavailable [...] is protected by Article 27-F of the [facility] Public Health law. If you continue you may have access to information: Regarding HIV / AIDS; Provided by facilities licensed or operated by the [facility] Office of Mental Health; or Provided by the [facility] Office for People With Developmental Disabilities. If such information is present, then the following [facility] mandated warning applies: This information has been [...] law may result in a fine or assisted sentence or both. A general authorization for the release of medical or other information is NOT sufficient authorization for further disc losure. Family History Family Member Name Family Member Gender Family Member Status Date o f Status Description Data Source(s) Unknown Unknown Problem MEDENT ([facility] Encounters Encounter Providers Location Date Indications Data Source(s ) Outpatient Referrer: Fredi Lovett MD 04/19/2020 09:16:57 AM E [facility] Unknown [address] [facility] [address] 04/14/2020 12:00:00 AM EST eCW1 ([facility]) Outpatient Attender: Laya Hansen MD Main office - [facility] 03/16/2020 10:00:00 AM EST MEDENT ([facility]) Outpatient Attender: Shemar ENCARNACION.AIDE-SJP.AIDE 020 12:00:00 AM EST - 02/24/2020 09:37:52 AM EST [facility] Unknown [address] [facility] [address] 02/24/2020 12:00:00 AM EST eCW1 ([facility]) Unknown [address] [facility] [address] 02/17/2020 12:00:00 AM EST eCW1 ([facility]) Unknown [address] [facility] [address] 02/02/2020 12:00:00 AM EST eCW1 ([facility]) Outpatient [address] [facility] [address] 01/14/2020 12:00:00 AM EDT eCW1 ([facility]) Outpatient [address] [facility] [address] 01/06/2020 12:00:00 AM EDT eCW1 ([facility]) Unknown [address] [facility] [address] 01/06/2020 12:00:00 AM EDT eCW1 ([facility]) Unknown [address] [facility] [address] 01/06/2020 12:00:00 AM EDT eCW1 ([facility]) [facility] Urology [address] [facility] [address] 12/30/2019 12:00:00 AM EDT eCW1 ([facility]) Outpatient Attender: Laya Hansen MD Main office - [facility] 12/08/2019 10:00:00 AM EDT MEDENT ([facility] Evita velasquez, ISABELLA) Outpatient Attender: Shemar Penaloza NPAttender: Chrissie ENCARNACION.AIDE-SJP.AIDE 11/25/2019 12:00:00 AM EDT [facility] TeleMedicine Est. Pt. Level 3 [address] [place] [address] 08/26/2019 12:00:00 AM EDT eCW1 ([facility]) Outpatient Attender: Chrissie Casillas MD SJP.AIDE-SJP.AIDE 07/25 12:00:00 AM EDT - 08/21/2019 04:34:59 PM EDT [facility] [address] [facility] [address] 08/12/2019 12:00:00 AM EDT eCW1 ([facility]) [facility] [address] [place] [address], [place] [address] 08/06/2019 12:00:00 AM EDT eCW1 ([facility]) [facility] Urology [address] [place] [address] [place] [address] 07/28/2019 12:00:00 AM EDT eCW1 ([facility]) Outpatient Attender: Laya Hansen MD [facility] office [facility] 07/15/2019 10:45:00 AM EDT MEDENT ([facility]) Outpatient [address] [facility] [address] 07/08/2019 12:00:00 AM EDT eCW1 ([facility]) [facility] Urology [address] [place] [address], [place] [address] 06/26/2019 12:00:00 AM EDT eCW1 ([facility]) [facility] [address] [place] [address], [place] [address] 06/24/2019 12:00:00 AM EDT eCW1 ([facility]) [facility] [address] [place] [address], [place] [address] 05/08/2019 12:00:00 AM EST eCW1 ([facility]) [facility] [address] [facility] [place] [address] 05/01/2019 12:00:00 AM EST eCW1 ([facility]) Outpatient Attender: Laya Hansen MD Main office - [facility] 04/08/2019 10:00:00 AM EST MEDENT ([facility] ISABELLA velasquez) [facility] [address] [facility] [address] 04/08/2019 12:00:00 AM EST eCW1 ([facility]) Outpatient Attender: Chrissie ENCARNACION.AIDE-SJPSANTOS 02/24 12:00:00 AM EST [facility] Immunizations Vaccine Date Status Description Data [...] 03/16/2020 12:00:00 AM EST ORAL active MEDENT ([facility]) 50 mg 03/16/2020 12:00:00 AM [...] DAILY DOSE = 2 TABLETS SOLD: 03/11/2020 [facility] 3 mL 22 gauge x 1" [...] active Needle (Disp) 18G X 1-1/2" eCW1 ([facility]) testosterone cypionate (DEPOTESTOTERONE CYPIONATE) 200 MG/ML injection [id number] 02/17/2020 12:00:00 AM EST activ e INJECT 1ML INTRAMUSCULARLY EVERY 2 WEEKS MAXIMUM DAILY DOSE 1ML EVERY 2 WEEKS [facility] Syringe 22G X 1" 3 ML Syringe 22G X 1" 3 ML 02/17/2020 12:00:00 AM EST active Syringe 22G X 1" 3 ML eCW1 ( [facility]) Syringe 22G X 1" 3 ML Syringe 22G X 1" 3 ML 02/17/2020 12:00:00 AM EST active Syringe 22G X 1" 3 ML eCW1 ( [facility]) Needle (Disp) 18G X 1-/2" UNK 02/17/2020 12:00:00 AM EST active Needle (Disp) 18G X 1-1/2" eCW1 ([facility]) Needle (Disp) 18G X 1-/2" UNK 02/17/2020 12:00:00 AM EST active Needle (Disp) 18G X 1-/2" eCW1 ([facility]) 18 gauge x 1 1/2" 02/17/2020 12:00:00 AM EST needle 6 USE DIRECTED USE DIRECTED SOLD: 02/17/2020 [facility] Syringe 22G X 1" 3 ML Syringe 22G X 1" 3 ML 02/17/2020 12:00:00 AM EST active Syringe 22G X 1" 3 ML eCW1 ( [facility]) 200 mg 02/16/2020 12:00:00 AM EST capsule [...] active Testos terone Cypionate 200 MG/ML eCW1 ([facility]) Testosterone Cypionate 200 MG/ML Testosterone Cypionate 200 MG/ML 01/06/2020 12:00:00 AM EDT 1.0 {ml} active Testos terone Cypionate 200 MG/ML eCW1 ([facility]) Testosterone Cypionate 200 MG/ML Testosterone Cypionate 200 MG/ML 01/06/2020 12:00:00 AM EDT 1.0 {ml} active Testos terone Cypionate 200 MG/ML eCW1 ([facility]) Testosterone Cypionate 200 MG/ML Testosterone Cypionate 200 MG/ML 01/06/2020 12:00:00 AM EDT 1.0 {ml} active Testos terone Cypionate 200 MG/ML eCW1 ([facility]) Testosterone Cypionate 200 MG/ML Testosterone Cypionate 200 MG/ML 01/06/2020 12:00:00 AM EDT 1.0 {ml} active Testos terone Cypionate 200 MG/ML eCW1 ([facility]) Metformin hydrochloride 850 MG Oral Tablet METFORMIN HCL 01/06/2020 12:00:00 AM EDT tablet 180 TAKE ONE TABLET BY MOUTH TWI CE A DAY TAKE ONE TABLET BY MOUTH TWICE A DAY SOLD: 04/04/2020 [facility] Testosterone Cypionate 200 MG/ML Testosterone Cypionate 200 MG/ML 01/06/2020 12:00:00 AM EDT 1.0 {ml} active Testos terone Cypionate 200 MG/ML eCW1 ([facility]) 850 mg 01/06/2020 12:00:00 AM EDT tablet 6 TAKE ONE TABLET BY MOUTH TWICE A DAY TAKE ONE TABLET BY MOUTH TWICE A DAY SOLD: 01/06/2020 [facility] Testosterone Cypionate 200 MG/ML Testosterone Cypionate 200 MG/ML 01/06/2020 12:00:00 AM EDT 1.0 {ml} active Testos terone Cypionate 200 MG/ML eCW1 ([facility]) Testosterone Cypionate 200 MG/ML Testosterone Cypionate 200 MG/ML 01/06/2020 12:00:00 AM EDT 1.0 {ml} active Testos terone Cypionate 200 MG/ML eCW1 ([facility]) Escitalopram 20 MG Oral Tablet ESCITALOPRAM OXALATE [...] ONE TABLET BY MOUTH TWICE A DAY [facility] 40 mg 12/02/2019 12:00:00 AM EDT tablet 90 TAKE ONE TABLET BY MOUTH TWICE A DAY TAKE ONE TABLET BY MOUTH TWICE A DAY SOLD: 01/15/2020 [facility] gabapentin 800 MG Oral Tablet gabapentin (NEURONTIN) 8 00 MG tablet gabapentin (NEURONTIN) 800 MG tablet 12/01/2019 12:00:00 AM EDT active TAKE ONE TABLET BY MOUTH FOUR TIMES A DAY MAXIMUM DAILY DOSE 4 [facility] 200 mg 11/18/2019 12:00:00 AM EDT [...] MAXIMUM DAILY DOSE = 4 SOLD: 12/01/2019 [facility] gabapentin 800 MG Oral Tablet GABAPENTIN 10/07/2019 12:00:00 AM EDT t ablet 120 TAKE ONE TABLET BY MOUTH FOUR TIMES A DAY MAXIMUM NAKUL Y DOSE = 4 TAKE ONE TABLET BY MOUTH FOUR TIMES A DAY MAXIMUM DAILY DOSE = 4 SOLD: 11/03/2019 [facility] clopidogrel 75 MG Oral Tablet clopidogrel (PLAVIX) 75 MG tablet clopidogrel (PLAVIX) 75 MG tablet 09/08/2019 12:00:00 AM EDT 75 mg Oral active Take 1 tablet (75 mg total) by mouth daily [facility] 40 mg 09/08/2019 12:00:00 AM EDT tablet 90 TAKE ONE TABLET BY MOUTH TWICE A DAY TAKE ONE TABLET BY MOUTH TWICE A DAY SOLD: 09/08/2019 [facility] 40 mg 09/08/2019 12:00:00 AM EDT tablet 90 TAKE ONE TABLET BY MOUTH TWICE A DAY TAKE ONE TABLET BY MOUTH TWICE A DAY SOLD: 10/21/2019 [facility] 50 mg 09/05/2019 12:00:00 AM EDT [...] PAIN MAX DAILY DOSE=2 TABLETS SOLD: 09/08/2019 [facility] 50 mg 09/05/2019 12:00:00 AM EDT tablet 60 TAKE 1 TABLET BY MOUTH TWICE A DAY NEEDED FOR PAIN MAX DAILY DOSE=2 TABLETS TAKE 1 TABLET BY MOUTH TWICE A DAY NEEDED FOR PAIN MAX DAILY DOSE=2 TABLETS SOLD: 11/03/2019 [facility] Furosemide 20 MG Oral Tablet Furosemide 20 MG 08/26/2019 12:00:00 A M EDT 1.0 {tablet} active Furosemide 20 MG eCW1 ( [facility]) Furosemide 20 MG Oral Tablet Furosemide 20 MG 08/26/2019 12:00:00 A M EDT 1.0 {tablet} active Furosemide 20 MG eCW1 ( [facility]) Furosemide 20 MG Oral Tablet Furosemide 20 MG 08/26/2019 12:00:00 A M EDT 1.0 {tablet} active Furosemide 20 MG eCW1 ( [facility]) Furosemide 20 MG Oral Tablet Furosemide 20 MG 08/26/2019 12:00:00 A M EDT 1.0 {tablet} active Furosemide 20 MG eCW1 ( [facility]) Furosemide 20 MG Oral Tablet Furosemide 20 MG 08/26/2019 12:00:00 A M EDT 1.0 {tablet} active Furosemide 20 MG eCW1 ( [facility]) Furosemide 20 MG Oral Tablet Furosemide 20 MG 08/26/2019 12:00:00 A M EDT 1.0 {tablet} active Furosemide 20 MG eCW1 ( [facility]) Furosemide 20 MG Oral Tablet Furosemide 20 MG 08/26/2019 12:00:00 A M EDT 1.0 {tablet} active Furosemide 20 MG eCW1 ( [facility]) Furosemide 20 MG Oral Tablet Furosemide 20 MG 08/26/2019 12:00:00 A M EDT 1.0 {tablet} active Furosemide 20 MG eCW1 ( [facility]) Furosemide 20 MG Oral Tablet Furosemide 20 MG 08/26/2019 12:00:00 A M EDT 1.0 {tablet} active Furosemide 20 MG eCW1 ( [facility]) Furosemide 20 MG Oral Tablet Furosemide 20 MG 08/26/2019 12:00:00 A M EDT 1.0 {tablet} active Furosemide 20 MG eCW1 ( [facility]) 40 mg 08/22/2019 12:00:00 AM EDT tablet [...] FOR PAIN MAX DAILY DOSE 2 TABLETS [facility] 75 mg 08/13/2019 12:00:00 AM EDT [...] day To be taken with 600mg gabapentin [facility] Insurance Providers Payer name Policy type / Coverage type Policy ID Covered democrat ID Covered democrat's relationship to chaves Policy Chaves Plan Information [facility] [id number] SP [id number] [employer] [facility] [id number] SP [id number] HUMANA MEDICARE [id number] MEDICARE [id number] HUMANA MEDICARE [id number] Paz [id number] MEDICARE [id number] Paz [id number] MEDICAID [facility] HEALTH [facility] OPTIONS [id number] SP [id number] MEDICARE [id number] SP [id number] [facility] OPTIONS [id number] SP [id number] [facility] [id number] Paz [id number] [facility] [id number] ANSI-Medicare Part B [id number] ANSI-Medicare Part B [id number] ANSI-Commercial [id number] [facility] Health Care Options [facility] Part B [id number] Self [id number] Medicare Natl Gov't Servi Medicare Primary [id number] Self [id number] ANSI-Medicare Part B [id number] ANSI-Medicare Part B [id number] ANSI-Commercial [id number] ANSI-Medicare Part B [id number] ANSI-Medicare Part B [id number] ANSI-Commercial [id number] ANSI-Commercial [id number] ANSI-Medicare Part B [id number] ANSI-Medicare Part B [id number] [facility] [id number] Paz [id number] MEDICARE [id number] Paz [id number] J66 [facility] HEALTH CARE OPTIONS [id number] SP [id number] MEDICARE [id number] SP [id number] ANSI-Commercial [id number] ANSI-Medicare Part B [id number] ANSI-Medicare Part B [id number] [facility] [id number] Self [id number] MEDICARE A [id number] Self [id number] A [facility] HEALTH CARE OPTIONS [id number] SP [id number] ANSI-Commercial [id number] ANSI-Medicare Part B [id number] ANSI-Medicare Part B [id number] [facility] OPTIONS [id number] SP [id number] ANSI-Medicare Part B [id number] ANSI-Commercial [id number] ANSI-Medicare Part B [id number] ANSI-Medicare Part B [id number] ANSI-Medicare Part B [id number] ANSI-Commercial [id number] ANSI-Commercial [id number] ANSI-Medicare Part B [id number] ANSI-Medicare Part B [id number] ANSI-Medicare Part B [id number] ANSI-Medicare Part B [id number] ANSI-Commercial [id number] ANSI-Medicare Part B [id number] ANSI-Medicare Part B [id number] ANSI-Commercial [id number] MEDICARE [id number] A ANSI-Medicare Part B [id number] ANSI-Medicare Part B [id number] ANSI-Commercial [id number] AARP O [id number] S [id number] MEDICARE C [id number] S [id number] A MEDICARE [id number] SP [id number] A MEDICARE [id number] TOD[employer] OPTIONS [id number] SP [id number] 1988 TOD[employer]YS OPTIONS [id number] SP [id number] 1988 TOD[employer]YS OPTIONS [id number] SP [id number] 1988 [facility] [id number] Paz [id number] MEDICARE [id number] Paz [id number] A [facility] HE[facility] CARE OPTIONS UNAVAILABLE UNAVAILABLE AARP O [id number] S [id number] HUMANA MEDICARE [id number] Paz [id number] HUMANA PPO [id number] SP [id number] Medicare Part B [facility] [id number] [facility] HMO/PPO/POS [id number] Problems, Conditions, and Diagnoses Code Display Name Description Problem Type Effective Dates Data Source(s) I10 Hypertension Hypertension [id number] 02/20/2020 12:00:00 A M EST [facility] E11.40 [id number] 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, without long- term current use of insulin Problem 05/07/2019 12:00:00 AM EST [facility] ([facility]) E11.40 [id number] 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, without long- term current use of insulin Problem 05/07/2019 12:00:00 AM EST eCW1 ([facility]) 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 Problem 04/08/2019 12:00:00 AM EST eCW1 ([facility]) I25.10 [id number] Atherosclerotic hear t disease of [place] coronary artery without angina pectoris Problem 04/08/2019 12:00:00 AM EST eCW1 ([facility]) E78.2 Mixed hyperlipidemia Mixed hyperlipidemia Diagnosis 02/24/2020 08:56:34 AM EST [facility] I10 Essential (primary) hypertension Essential (primary) h ypertension Diagnosis 02/24/2020 08:56:34 AM EST [facility] Z98.61 Coronary angioplasty status Coronary angioplasty statu s Diagnosis 02/24/2020 08:56:34 AM EST [facility] I25.5 Ischemic cardiomyopathy Ischemic cardiomyopathy Diagno sis 02/24/2020 08:56:34 AM EST [facility] I35.0 Nonrheumatic aortic (valve) stenosis Nonrheumati c aortic (valve) stenosis Diagnosis 02/24/2020 08:56:34 AM EST [facility] E11.59 Type 2 diabetes mellitus with other circ ulatory complications Type 2 diabetes mellitus with other circ Diagnosis 11/25/2019 09:22:11 AM EDT [facility] R06.02 Shortness of breath Shortness of breath Diagnosis 0 08/21/2019 03:34:06 PM EDT [facility] Surgeries/Procedures Procedure Description Date Indications Data Source(s) ECG ROUTINE ECG W/LEAST 12 LDS W/I&R POCT AMB EKG Routine 02/24/2020 9:13 AM EST Coronary angioplasty status 02/24/2020 02:13:00 PM EST Coron aj angioplasty status [facility] Coronary angioplasty status Injection: Testosterone Cypionate 200mg IM 01/14/2020 12:00:00 AM EDT eCW1 ([facility]) FALLS RISK ASSESSMENT DOCUMENTED 07/15/2019 12:00:00 A M EDT MEDENT ([facility]) PHYSICIAN TELEPHONE EVALUATION 11-20 MIN 06/26/2019 12 :00:00 AM EDT eCW1 ([facility]) Office Visit, Est Pt., Level 2 FC 04/08/2019 12:00:00 AM EST eCW1 ([facility]) Office Visit, Est Pt., Level 4 PC 04/08/2019 12:00:00 AM EST eCW1 ([facility]) Results ID Date Data Source [id number] 02/09/2020 04:25:00 PM EST [facility] Name Value Range Interpretation Code Description Data Rima rce(s) Supporting Document(s) SARS-CoV-2 (COVID-19) [facility] This lab was ordered by MAMIE Baker [facility] [employer] and reported by [facility]. ID Date Data Source TESTOSTERONE 02/05/2020 12:00:00 AM EST eCW1 ([facility]) Name Value Range Interpretation Code Description Data Rima rce(s) Supporting Document(s) [id number] TESTOSTERONE eCW1 ([facility]) ID Date Data Source [id number] 09/15/2019 09:15:00 AM EDT [facility] Name Value Range Interpretation Code Description Data Rima rce(s) Supporting Document(s) SARS-CoV-2 (COVID-19) [facility] This lab was ordered by [facility], [employer] and reported by [facility]. ID Date Data Source Basic Metabolic Profile (BMP) 04/08/2019 12:00:00 AM EST eCW 1 ([facility]) Name Value Range Interpretation Code Description Data Rima rce(s) Supporting Document(s) 18 7-18 BLOOD UREA NITROGEN eCW1 ([facility]) > 60.0 >42 GLOMERULAR FILTRATION RATE eCW 1 ([facility]) 0.98 0.70-1.30 CREATININE FOR GFR eCW1 ([facility]) 109 70-100 GLUCOSE, FASTING eCW1 ([facility]) 4.8 3.5-5.1 POTASSIUM SERUM eCW1 ([facility]) 108 98-107 CHLORIDE LEVEL eCW1 ([facility]) 140 136-145 SODIUM LEVEL eCW1 ([facility]) 25 21-32 CARBON DIOXIDE LEVEL eCW1 ([facility]) 8.9 8.8-10.2 CALCIUM LEVEL eCW1 ([facility]) ID Date Data Source [id number] 04/08/2019 12:00:00 AM EST eCW1 ([facility]) Name Value Range Interpretation Code Description Data Rima rce(s) Supporting Document(s) Hemoglobin A1c/Hemoglobin.total in Blood 6.9 HEMOGLOBIN A1c eCW1 ([facility]) Procedure Social History Code Duration Value Status Description Data Source(s ) Smoking 01/14/2020 12:00:00 AM EDT Never Smoker completed Never S moker eCW1 ([facility]) Smoking 01/14/2020 12:00:00 AM EDT Never Smoker completed Never S moker eCW1 ([facility]) Smoking 01/14/2020 12:00:00 AM EDT Never Smoker completed Never S moker eCW1 ([facility]) Smoking 01/14/2020 12:00:00 AM EDT Never Smoker completed Never S moker eCW1 ([facility]) Smoking 01/14/2020 12:00:00 AM EDT Never Smoker completed Never S moker eCW1 ([facility] [facility]) Smoking 01/14/2020 12:00:00 AM EDT Never Smoker completed Never S moker eCW1 ([facility]) Smoking 01/06/2020 12:00:00 AM EDT Never Smoker completed Never S moker eCW1 ([facility]) Smoking 01/06/2020 12:00:00 AM EDT Never Smoker completed Never S moker eCW1 ([facility]) Alcohol intake 11/25/2019 12:00:00 AM EDT Yes completed [facility] Smoking 11/25/2019 12:00:00 AM EDT Never smoker completed Never s moker [facility] Smoking 08/26/2019 12:00:00 AM EDT Never Smoker completed Never S moker eCW1 ([facility]) Smoking 08/26/2019 12:00:00 AM EDT Never Smoker completed Never S moker eCW1 ([facility]) Vital Signs ID Date Data Source UNK Name Value Range Interpretation Code Description Data Source(s) Manning body weight 166 [lb_av] 166 [lb_av] MEDEN T ([facility], ) Body mass index (BMI) [Ratio] 36.0 kg/m2 36.0 k g/m2 MEDENT ([facility], ) Body weight 251.00 [lb_av] 251.00 [lb_av] MEDEN T ([facility]) Body height 70 [in_i] 70 [in_i] MEDENT ([facility]) 5'10" Respiratory rate 12 /min 12 /min MEDENT ( [facility]) Body mass index (BMI) [Ratio] 36.16 kg/m2 36.16 kg/m2 [facility] Body weight 114.306 kg 114.306 kg [facility] Body height 177.8 cm 177.8 cm [facility] Respiratory rate 16 /min 16 /min [facility] Heart rate 64 /min 64 /min [facility] Diastolic blood pressure 80 mm[Hg] 80 mm[Hg] [facility] Systolic blood pressure 120 mm[Hg] 120 mm[Hg] [facility] Heart rate 67 /min 67 /min eCW1 ([facility]) Body mass index (BMI) [Ratio] 36.94 kg/m2 36.94 kg/m2 W1 ([facility]) Body height 69.25 [in_i] 69.25 [in_i] W1 ([facility]) Body weight 252 [lb_av] 252 [lb_av] eCW1 ([facility]) Diastolic blood pressure 64 mm[Hg] 64 mm[Hg] eCW1 ([facility]) Systolic blood pressure 122 mm[Hg] 122 mm[Hg] e CW1 ([facility]) Body temperature 96.4 [degF] 96.4 [degF] eCW1 ( [facility]) Respiratory rate 18 /min 18 /min eCW1 ([facility]) Diastolic blood pressure mm[Hg] eCW1 ([facility]) Systolic blood pressure 132 mm[Hg] 132 mm[Hg] e CW1 ([facility]) Body temperature 97.9 [degF] 97.9 [degF] eCW1 ( [facility]) Respiratory rate 19 /min 19 /min eCW1 ([facility]) Heart rate 75 /min 75 /min eCW1 ([facility]) Body mass index (BMI) [Ratio] 36.65 kg/m2 36.65 kg/m2 eCW1 ([facility]) Body height 69.25 [in_i] 69.25 [in_i] eCW1 ([facility]) Body weight 250 [lb_av] 250 [lb_av] eCW1 ([facility]) Manning body weight 166 [lb_av] 166 [lb_av] MEDEN T ([facility], ) Body mass index (BMI) [Ratio] 36.0 kg/m2 36.0 k g/m2 MEDENT ([facility], ) Body weight 251.00 [lb_av] 251.00 [lb_av] MEDEN T ([facility], ) Body height 70 [in_i] 70 [in_i] MEDENT ([facility], ) 5'10" Respiratory rate 12 /min 12 /min MEDENT ( [facility], ) Diastolic blood pressure 73 mm[Hg] 73 mm[Hg] eCW1 ([facility]) Systolic blood pressure 150 mm[Hg] 150 mm[Hg] e CW1 ([facility]) Body temperature 96.8 [degF] 96.8 [degF] eCW1 ( [facility]) Respiratory rate 18 /min 18 /min eCW1 ([facility]) Heart rate 62 /min 62 /min eCW1 ([facility]) Body mass index (BMI) [Ratio] 36.65 kg/m2 36.65 kg/m2 eCW1 ([facility]) Body height 69.25 [in_i] 69.25 [in_i] eCW1 ([facility]) Body weight 250 [lb_av] 250 [lb_av] eCW1 ([facility]) Body mass index (BMI) [Ratio] 33.0 kg/m2 33.0 k g/m2 MEDENT ([facility], ) Body weight 230.00 [lb_av] 230.00 [lb_av] MEDEN T ([facility], ) Body height 70 [in_i] 70 [in_i] MEDENT ([facility], ) 5'10" Respiratory rate 12 /min 12 /min MEDENT ( [facility]) Body mass index (BMI) [Ratio] 33.0 kg/m2 33.0 k g/m2 MEDENT ([facility]) Body weight 230.00 [lb_av] 230.00 [lb_av] MEDEN T ([facility]) Body height 70 [in_i] 70 [in_i] MEDENT ([facility]) 5'10" Respiratory rate 12 /min 12 /min MEDENT ( [facility]) Heart rate 72 /min 72 /min MEDENT ([facility]) Diastolic blood pressure 62 mm[Hg] 62 mm[Hg] MEDENT ([facility]) Systolic blood pressure 116 mm[Hg] 116 mm[Hg] M EDENT ([facility]) Diastolic blood pressure 61 mm[Hg] 61 mm[Hg] eCW1 ([facility]) Systolic blood pressure 131 mm[Hg] 131 mm[Hg] e CW1 ([facility]) Body temperature 96.7 [degF] 96.7 [degF] eCW1 ( [facility]) Respiratory rate 18 /min 18 /min eCW1 ([facility]) Heart rate 67 /min 67 /min eCW1 ([facility]) Body mass index (BMI) [Ratio] 36.44 kg/m2 36.44 kg/m2 eCW1 ([facility]) Body height 69.25 [in_us] 69.25 [in_us] eCW1 ([facility]) Body weight Measured 248.6 [lb_av] 248.6 [lb_av ] eCW1 ([facility]) Patient Treatment Plan of Care Planned Activity Planned Date Details Description Data Source (s) Syringe 22G X 1" 3 ML 02/17/2020 12:00:00 AM EST eCW1 ([facility]) Needle (Disp) 18G X 1-1/2" 02/17/2020 12:00:00 AM EST eCW1 ([facility]) Syringe 22G X 1" 3 ML 02/17/2020 12:00:00 AM EST eCW1 ([facility]) Needle (Disp) 18G X 1-1/2" 02/17/2020 12:00:00 AM EST eCW1 ([facility]) testosterone cypionate (DEPOTESTOTERONE CYPIONATE) 200 MG/ML injection 02/17/2020 12:00:00 AM EST [facility] Syringe 22G X 1" 3 ML 02/17/2020 12:00:00 AM EST eCW1 ([facility]) Needle (Disp) 18G X 1-1/2" 02/17/2020 12:00:00 AM EST eCW1 ([facility]) Testosterone Cypionate 200 MG/ML 01/06/2020 12:00:00 AM EDT eCW1 ([facility]) Testosterone Cypionate 200 MG/ML 01/06/2020 12:00:00 AM EDT eCW1 ([facility]) Testosterone Cypionate 200 MG/ML 01/06/2020 12:00:00 AM EDT eCW1 ([facility]) Testosterone Cypionate 200 MG/ML 01/06/2020 12:00:00 AM EDT eCW1 ([facility]) Testosterone Cypionate 200 MG/ML 01/06/2020 12:00:00 AM EDT eCW1 ([facility]) Testosterone Cypionate 200 MG/ML 01/06/2020 12:00:00 AM EDT eCW1 ([facility]) Furosemide 40 MG Oral Tablet 12/02/2019 12:00:00 AM EDT [facility] gabapentin 800 MG Oral Tablet 12/01/2019 12:00:00 AM EDT [facility] clopidogrel 75 MG Oral Tablet 09/08/2019 12:00:00 AM EDT [facility] tramadol hydrochloride 50 MG Oral Tablet 08/13/2019 12:00:00 AM EDT [facility] gabapentin 400 MG Oral Capsule [facility]
[2020-05-08 21:47] LABS: ALBUMIN 3.2 GM/DL (3.2-5.2); ALT/SGPT 27 U/L (12-78); BILIRUBIN,DIRECT < 0.1 MG/DL (0.0-0.2); BILIRUBIN,TOTAL 0.3 MG/DL (0.2-1.0); BLOOD UREA NITROGEN 15 MG/DL (7-18); CALCIUM LEVEL 9.1 MG/DL (8.8-10.2); CARBON DIOXIDE LEVEL 29 MEQ/L (21-32); CHLORIDE LEVEL 104 MEQ/L (98-107); CREATININE FOR GFR 1.05 MG/DL (0.70-1.30); GLOMERULAR FILTRATION RATE > 60.0 (>42); GLUCOSE, FASTING 210 MG/DL (70-100); LIPASE 144 U/L (73-393); NT-PRO BNP 155 PG/ML (<450); POTASSIUM SERUM 3.7 MEQ/L (3.5-5.1); SODIUM LEVEL 141 MEQ/L (136-145); TOTAL PROTEIN 6.7 GM/DL (6.4-8.2)
[2020-05-09 01:30] VITALS: BP 141/71
[2020-05-09] MEDS ORDERED: ATIV1TAB10 PO (01:39)
--- NOTE | 2020-05-09 20:44 | ECGEPIP ---
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
--- NOTE | 2020-05-09 20:47 | ECGEPIP ---
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
== END 2020-05-09 01:53 | disposition home or self-care (01) ==
LOC: M ED 20:19
DX: F41.0 Panic disorder [episodic paroxysmal anxiety] (principal); E11.9 Type 2 diabetes mellitus without complications; I25.10 Atherosclerotic heart disease of native coronary artery without angina pectoris; N40.0 Benign prostatic hyperplasia without lower urinary tract symptoms; Z95.5 Presence of coronary angioplasty implant and graft; Z79.899 Other long term (current) drug therapy; Z79.82 Long term (current) use of aspirin; Z79.84 Long term (current) use of oral hypoglycemic drugs; Z79.01 Long term (current) use of anticoagulants
CPT/HCPCS: 71045; 80048; 80076; 83690; 83880; 84443; 84484; 85025; 93005; 93041; 94760; 96374; 99285; J2060

== ENCOUNTER → 2020-05-14 | Outpatient (CLI) | payer MEDICARE ==
[~2020-05-14] MED LIST changes: +ATIV1TAB10 PO; +CELE1CAP9 PO; +DIVA250T7 PO; +DIVA500T9 PO; +FURO40TA2 PO; +GABA800T4 PO; +METF850T4 PO; +PANT20TA6 PO; +SERT50TA29 PO; +TRAM37.53 PO
--- NOTE | 2020-05-14 18:01 | REPVR ---
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 Radiation optimization: All CT scans at this facility use at least one of these dose optimization techniques: automated exposure control; mA and/or kV adjustment per patient size (includes targeted exams where dose is matched to clinical indication); or iterative reconstruction. COMPARISON: CT Head without contrast 03/24/2019 7:54 AM FINDINGS: Brain: No acute intracerebral abnormality or injury. No acute infarct or intracerebral bleed. 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 No significant interval change since the previous head CT from 03/24/2019. [place] [facility] Early CT Score (ASPECTS score) = 10. Cerebral ventricles: No ventriculomegaly. Bones/joints: Unremarkable. No acute fracture. Paranasal sinuses: Mild mucosal thickening of the ethmoid sinuses is present bilaterally. Mastoid air cells: Visualized mastoid air cells are well aerated. Soft tissues: Unremarkable. IMPRESSION: 1. No acute intracerebral abnormality or injury. No acute infarct or intracerebral bleed. 2. 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 No significant interval change since the previous head CT from 03/24/2019. 3. [place] [facility]roke [facility] Early CT Score (ASPECTS score) = 10. 4. Mild mucosal thickening of the ethmoid sinuses is present bilaterally. Electronically signed by: Ryan Ramirez On 05/14/2020 18:01:35 PM
== END ==
LOC: M RAD 17:25
PROVIDERS: ATTEND Psychiatry & Neurology Neurology
DX: I63.9 Cerebral infarction, unspecified (principal)

== ENCOUNTER → 2020-08-03 | Outpatient (CLI) | payer MEDICARE ==
[2020-08-03 12:10] LABS: HEMOGLOBIN A1c 7.4 %
== END ==
LOC: M PLALAB 09:14
PROVIDERS: ATTEND Urology
DX: E29.1 Testicular hypofunction (principal); Z12.5 Encounter for screening for malignant neoplasm of prostate; Z79.899 Other long term (current) drug therapy
CPT/HCPCS: 36415; 83036; 84403; G0103

== ENCOUNTER → 2020-09-07 | Outpatient (REF) | payer MEDICARE ==
[2020-09-07 15:03] LABS: FREE T4 0.95 NG/DL (0.76-1.46); THYROID STIMULATING HORMONE 3.88 uIU/ML (0.358-3.740)
== END ==
LOC: M PLALAB 12:55
PROVIDERS: ATTEND Nurse Practitioner Family
DX: R79.89 Other specified abnormal findings of blood chemistry (principal)

== ENCOUNTER → 2021-01-31 | Outpatient (CLI) | payer MEDICARE ==
[2021-01-31 13:07] LABS: HEMATOCRIT 45.9 % (42.0-52.0); HEMOGLOBIN 14.2 g/dl (13.5-17.5)
== END ==
LOC: M PLALAB 10:04
PROVIDERS: ATTEND Urology
DX: E29.1 Testicular hypofunction (principal); E11.8 Type 2 diabetes mellitus with unspecified complications; Z12.5 Encounter for screening for malignant neoplasm of prostate
CPT/HCPCS: 36415; 83036; 84403; 85014; 85018; G0103

== ENCOUNTER → 2021-01-31 | Outpatient (CLI) | payer MEDICARE ==
[2021-01-31 14:16] LABS: HEMOGLOBIN A1c 6.7 %
== END ==
LOC: M PLALAB 10:06
PROVIDERS: ATTEND Student in an Organized Health Care Education/Training Program
DX: E11.8 Type 2 diabetes mellitus with unspecified complications (principal)

== ENCOUNTER → 2021-03-23 | Outpatient (CLI) | payer MEDICARE ==
[2021-03-23 15:44] LABS: HEMATOCRIT 50.7 % (42.0-52.0); HEMOGLOBIN 15.8 g/dl (13.5-17.5)
== END ==
LOC: M PLALAB 13:57
PROVIDERS: ATTEND Urology
DX: E29.1 Testicular hypofunction (principal)
CPT/HCPCS: 36415; 84403; 85014; 85018; G0103

== ENCOUNTER → 2021-10-21 | Outpatient (CLI) | payer MEDICARE ==
[2021-10-21 12:00] LABS: HEMATOCRIT 50.6 % (42.0-52.0); HEMOGLOBIN 16.3 g/dl (13.5-17.5)
== END ==
LOC: M PLALAB 09:33
PROVIDERS: ATTEND Urology
DX: E29.1 Testicular hypofunction (principal)

== ENCOUNTER → 2021-10-21 | Outpatient (CLI) | payer MEDICARE | LOC: M PLALAB 09:40 | PROVIDERS: ATTEND Student in an Organized Health Care Education/Training Program | DX: M51.34 Other intervertebral disc degeneration, thoracic region (principal); M25.78 Osteophyte, vertebrae ==

== ENCOUNTER → 2021-10-21 | Outpatient (CLI) | payer MEDICARE ==
[2021-10-21 12:00] LABS: BASO # 0.1 10^3/uL (0.0-0.2); BASO % 1.1 % (0.0-1.0); EOS # 0.4 10^3/uL (0.0-0.5); EOS % 4.3 % (0.0-3.0); HEMATOCRIT 49.4 % (42.0-52.0); HEMOGLOBIN 15.9 g/dl (13.5-17.5); LYMPH # 1.7 10^3/uL (1.5-5.0); LYMPH % 20.4 % (24.0-44.0); MEAN CORPUSCULAR HEMOGLOBIN 28.3 pg (27.0-33.0); MEAN CORPUSCULAR HGB CONC 32.2 g/dl (32.0-36.5); MEAN CORPUSCULAR VOLUME 87.9 fl (80.0-96.0); MONO # 0.6 10^3/uL (0.0-0.8); MONO % 7.8 % (2.0-8.0); NEUTROPHILS # 5.4 10^3/uL (1.5-8.5); NEUTROPHILS % 66.2 % (36.0-66.0); PLATELET COUNT, AUTOMATED 192 10^3/uL (150-450); RED BLOOD COUNT 5.62 10^6/uL (4.30-6.10); WHITE BLOOD COUNT 8.2 10^3/uL (4.0-10.0)
[2021-10-21 12:28] LABS: ALBUMIN 3.9 GM/DL (3.2-5.2); ALT/SGPT 23 U/L (12-78); BILIRUBIN,TOTAL 0.4 MG/DL (0.2-1.0); BLOOD UREA NITROGEN 26 MG/DL (7-18); CALCIUM LEVEL 9.4 MG/DL (8.8-10.2); CARBON DIOXIDE LEVEL 35 MEQ/L (21-32); CHLORIDE LEVEL 101 MEQ/L (98-107); CHOLESTEROL LEVEL 123 MG/DL (<200); CREATININE FOR GFR 1.07 MG/DL (0.70-1.30); GLOMERULAR FILTRATION RATE > 60.0 (>42); GLUCOSE, FASTING 118 MG/DL (70-100); HDL CHOLESTEROL 50 MG/DL (>40); LDL CHOLESTEROL 43 MG/DL (<100); NON-HDL-C 73 MG/DL; POTASSIUM SERUM 4.6 MEQ/L (3.5-5.1); SODIUM LEVEL 140 MEQ/L (136-145); TOTAL PROTEIN 7.7 GM/DL (6.4-8.2); TRIGLYCERIDES LEVEL 150 MG/DL (<150)
[2021-10-21 14:13] LABS: HEMOGLOBIN A1c 6.5 %
== END ==
LOC: M PLALAB 09:36
PROVIDERS: ATTEND Student in an Organized Health Care Education/Training Program
DX: E11.9 Type 2 diabetes mellitus without complications (principal); I10 Essential (primary) hypertension; E29.1 Testicular hypofunction; M51.34 Other intervertebral disc degeneration, thoracic region; M25.78 Osteophyte, vertebrae

== ENCOUNTER → 2021-12-19 | Outpatient (CLI) | payer MEDICAID, MEDICARE | LOC: M PLAIMG 10:09 | PROVIDERS: ATTEND Student in an Organized Health Care Education/Training Program | DX: M43.04 Spondylolysis, thoracic region (principal); M48.04 Spinal stenosis, thoracic region; M51.34 Other intervertebral disc degeneration, thoracic region; M51.44 Schmorl's nodes, thoracic region ==

== ENCOUNTER → 2022-03-24 | Outpatient (CLI) | payer MEDICARE, MEDICAID ==
[~2022-03-24] MED LIST changes: +CLOP75TA99 PO; -PLAV1TAB2 PO
[2022-03-24 17:17] LABS: HEMATOCRIT 45.9 % (42.0-52.0); HEMOGLOBIN 15.1 g/dl (13.5-17.5)
== END ==
LOC: M WUC 11:31
PROVIDERS: ATTEND Urology
DX: E29.1 Testicular hypofunction (principal); Z12.5 Encounter for screening for malignant neoplasm of prostate
CPT/HCPCS: 36415; 84403; 85014; 85018; G0103

== ENCOUNTER → 2022-10-23 | Outpatient (REF) | payer MEDICARE, MEDICAID ==
[2022-10-23 17:10] LABS: HEMATOCRIT 47.1 % (42.0-52.0); HEMOGLOBIN 15.4 g/dl (13.5-17.5)
== END ==
LOC: M SMT 16:14
PROVIDERS: ATTEND Urology
DX: E29.1 Testicular hypofunction (principal)

== ENCOUNTER → 2022-11-20 | Outpatient (CLI) | payer MEDICAID, MEDICARE | LOC: M LAB 16:49 | PROVIDERS: ATTEND Urology | DX: R63.4 Abnormal weight loss (principal); E29.1 Testicular hypofunction | CPT/HCPCS: 36415; 84403; G0103 ==

== ENCOUNTER → 2022-12-06 | Outpatient (CLI) | payer MEDICARE, MEDICAID ==
[~2022-12-06] MED LIST changes: +CELE0.09 PO; -CELE1CAP9 PO
[2022-12-06 12:39] LABS: BASO # 0.1 10^3/uL (0.0-0.2); BASO % 0.9 % (0.0-1.0); EOS # 0.4 10^3/uL (0.0-0.5); EOS % 5.2 % (0.0-3.0); HEMATOCRIT 49.4 % (42.0-52.0); HEMOGLOBIN 15.9 g/dl (13.5-17.5); LYMPH # 2.2 10^3/uL (1.5-5.0); LYMPH % 29.5 % (24.0-44.0); MEAN CORPUSCULAR HEMOGLOBIN 30.1 pg (27.0-33.0); MEAN CORPUSCULAR HGB CONC 32.2 g/dl (32.0-36.5); MEAN CORPUSCULAR VOLUME 93.4 fl (80.0-96.0); MONO # 0.7 10^3/uL (0.0-0.8); MONO % 8.8 % (2.0-8.0); NEUTROPHILS # 4.2 10^3/uL (1.5-8.5); NEUTROPHILS % 55.3 % (36.0-66.0); PLATELET COUNT, AUTOMATED 156 10^3/uL (150-450); RED BLOOD COUNT 5.29 10^6/uL (4.30-6.10); WHITE BLOOD COUNT 7.5 10^3/uL (4.0-10.0)
[2022-12-06 12:46] LABS: ALBUMIN 3.7 G/DL (3.2-5.2); ALKALINE PHOSPHATASE 78 U/L (46-116); ALT/SGPT 21 U/L (7.0-40); AST/SGOT 20 U/L (<34); BILIRUBIN,TOTAL 0.5 MG/DL (0.3-1.2); BLOOD UREA NITROGEN 16 MG/DL (9-23); CALCIUM LEVEL 9.3 MG/DL (8.3-10.6); CARBON DIOXIDE LEVEL 34 MMOL/L (20-31); CHLORIDE LEVEL 103 MMOL/L (98-107); CHOLESTEROL LEVEL 116 MG/DL (<200); CHOLESTEROL RISK RATIO 2.37 (<5); CREATININE FOR GFR 0.82 MG/DL (0.70-1.30); GLOMERULAR FILTRATION RATE > 60.0 (>35); GLUCOSE, FASTING 90 MG/DL (74-106); HDL CHOLESTEROL 48.8 MG/DL (>40); LDL CHOLESTEROL 42.6 MG/DL (<100); NON-HDL-C 67.2 MG/DL; POTASSIUM SERUM 4.5 MMOL/L (3.5-5.1); SODIUM LEVEL 145 MMOL/L (136-145); TRIGLYCERIDES LEVEL 123 MG/DL (<150)
[2022-12-06 12:49] LABS: FREE T4 1.12 NG/DL (0.89-1.76)
[2022-12-06 13:13] LABS: CREATININE, URINE 63.6 MG/DL; MALB URINE SIEMENS < 3.0 MG/L; MAU/CREAT RATIO 4.7 MCG/MG (0.0-30.0)
== END ==
LOC: M WUC 09:21
PROVIDERS: ATTEND Student in an Organized Health Care Education/Training Program
DX: R63.4 Abnormal weight loss (principal); E11.8 Type 2 diabetes mellitus with unspecified complications

== ENCOUNTER → 2022-12-25 | Outpatient (REF) | payer MEDICARE, MEDICAID | LOC: M WUC 16:47 | PROVIDERS: ATTEND Urology | DX: E29.1 Testicular hypofunction (principal) ==

== ENCOUNTER → 2023-01-30 | Outpatient (CLI) | payer MEDICARE, MEDICAID | LOC: M WUC 08:56 | PROVIDERS: ATTEND Urology | DX: E29.1 Testicular hypofunction (principal) ==

== ENCOUNTER → 2023-06-12 | Outpatient (CLI) | payer MEDICARE, MEDICAID ==
[2023-06-12 12:40] LABS: HEMATOCRIT 44.1 % (42.0-52.0); HEMOGLOBIN 14.7 g/dl (13.5-17.5); MEAN CORPUSCULAR HEMOGLOBIN 30.8 pg (27.0-33.0); MEAN CORPUSCULAR HGB CONC 33.3 g/dl (32.0-36.5); MEAN CORPUSCULAR VOLUME 92.3 fl (80.0-96.0); PLATELET COUNT, AUTOMATED 146 10^3/uL (150-450); RED BLOOD COUNT 4.78 10^6/uL (4.30-6.10); WHITE BLOOD COUNT 6.7 10^3/uL (4.0-10.0)
== END ==
LOC: M WUC 09:31
PROVIDERS: ATTEND Nurse Practitioner Family
DX: I35.0 Nonrheumatic aortic (valve) stenosis (principal); I25.5 Ischemic cardiomyopathy; E78.5 Hyperlipidemia, unspecified; I10 Essential (primary) hypertension; I25.10 Atherosclerotic heart disease of native coronary artery without angina pectoris; R06.02 Shortness of breath

== ENCOUNTER → 2023-06-12 | Outpatient (CLI) | payer MEDICARE, MEDICAID ==
[2023-06-12 12:41] LABS: BASO # 0.1 10^3/uL (0.0-0.2); BASO % 0.9 % (0.0-1.0); EOS # 0.3 10^3/uL (0.0-0.5); EOS % 3.9 % (0.0-3.0); HEMATOCRIT 44.1 % (42.0-52.0); HEMOGLOBIN 14.6 g/dl (13.5-17.5); LYMPH # 1.8 10^3/uL (1.5-5.0); LYMPH % 26.6 % (24.0-44.0); MEAN CORPUSCULAR HEMOGLOBIN 30.4 pg (27.0-33.0); MEAN CORPUSCULAR HGB CONC 33.1 g/dl (32.0-36.5); MEAN CORPUSCULAR VOLUME 91.9 fl (80.0-96.0); MONO # 0.5 10^3/uL (0.0-0.8); NEUTROPHILS % 60.3 % (36.0-66.0); PLATELET COUNT, AUTOMATED 139 10^3/uL (150-450); WHITE BLOOD COUNT 6.7 10^3/uL (4.0-10.0)
[2023-06-12 12:42] LABS: ALBUMIN 3.6 G/DL (3.2-5.2); ALKALINE PHOSPHATASE 64 U/L (46-116); ALT/SGPT 16 U/L (7.0-40); AST/SGOT 22 U/L (<34); BILIRUBIN,TOTAL 0.5 MG/DL (0.3-1.2); BLOOD UREA NITROGEN 17 MG/DL (9-23); CALCIUM LEVEL 9.1 MG/DL (8.3-10.6); CARBON DIOXIDE LEVEL 36 MMOL/L (20-31); CHLORIDE LEVEL 106 MMOL/L (98-107); CREATININE FOR GFR 0.92 MG/DL (0.70-1.30); GLOMERULAR FILTRATION RATE > 60.0 (>35); GLUCOSE, FASTING 121 MG/DL (74-106); POTASSIUM SERUM 4.2 MMOL/L (3.5-5.1); SODIUM LEVEL 142 MMOL/L (136-145); TOTAL PROTEIN 6.4 G/DL (5.7-8.2)
[2023-06-12 12:52] LABS: HEMOGLOBIN A1c 5.9 % (4.0-6.0)
== END ==
LOC: M WUC 09:34
PROVIDERS: ATTEND Family Medicine
DX: E11.40 Type 2 diabetes mellitus with diabetic neuropathy, unspecified (principal); E66.3 Overweight; I35.0 Nonrheumatic aortic (valve) stenosis; I25.5 Ischemic cardiomyopathy; E78.5 Hyperlipidemia, unspecified; I10 Essential (primary) hypertension; I25.10 Atherosclerotic heart disease of native coronary artery without angina pectoris; R06.02 Shortness of breath

== ENCOUNTER → 2023-09-17 | Outpatient (REF) | payer MEDICARE, MEDICAID ==
[2023-09-17 18:10] LABS: BASO # 0.1 10^3/uL (0.0-0.2); BASO % 0.8 % (0.0-1.0); EOS # 0.3 10^3/uL (0.0-0.5); EOS % 4.2 % (0.0-3.0); HEMATOCRIT 43.7 % (42.0-52.0); HEMOGLOBIN 14.2 g/dl (13.5-17.5); LYMPH # 2.1 10^3/uL (1.5-5.0); LYMPH % 28.3 % (24.0-44.0); MEAN CORPUSCULAR HEMOGLOBIN 31.3 pg (27.0-33.0); MEAN CORPUSCULAR HGB CONC 32.5 g/dl (32.0-36.5); MEAN CORPUSCULAR VOLUME 96.5 fl (80.0-96.0); MONO # 0.6 10^3/uL (0.0-0.8); MONO % 8.5 % (2.0-8.0); NEUTROPHILS # 4.3 10^3/uL (1.5-8.5); NEUTROPHILS % 57.8 % (36.0-66.0); PLATELET COUNT, AUTOMATED 139 10^3/uL (150-450); RED BLOOD COUNT 4.53 10^6/uL (4.30-6.10); WHITE BLOOD COUNT 7.5 10^3/uL (4.0-10.0)
== END ==
LOC: M LABWUC 16:29
PROVIDERS: ATTEND Family Medicine
DX: D69.6 Thrombocytopenia, unspecified (principal)

== ENCOUNTER → 2023-11-22 | Outpatient (CLI) | payer MEDICARE, MEDICAID ==
[~2023-11-22] MED LIST changes: +ACET300T48; +ANEC4CRE3 TOP; +BUPR5DIS3; +PREG50CA3; +TRAM1TAB42 PO; -TRAM37.53 PO; +TRAM50TA2 PO
== END ==
LOC: M WUC 10:39
PROVIDERS: ATTEND Urology
DX: Z12.5 Encounter for screening for malignant neoplasm of prostate (principal)
CPT/HCPCS: 36415; G0103

== ENCOUNTER 2023-11-24 12:29 | Emergency (ER) | payer MEDICARE, MEDICAID ==
[~2023-11-24] VITALS: Ht 172.7 cm; Wt 85.4 kg
[~2023-11-24 12:29] MED LIST changes: -ACET300T48; -ANEC4CRE3 TOP; -BUPR5DIS3; +GABA-1635 PO; -GABA800T4 PO; -PREG50CA3; -TRAM50TA2 PO
[2023-11-24] MEDS ORDERED: BUPR5DIS3 (12:46)
[2023-11-24] MEDS ORDERED: PREG50CA3 (12:46)
[2023-11-24] MEDS ORDERED: ACET300T48 (12:46)
[2023-11-24] MEDS: LIDOCAINE 4% CREAM 5GM (LMX4) TOP ONE (15:04)
[2023-11-24 15:15] LABS: BASO # 0.1 10^3/uL (0.0-0.2); BASO % 0.7 % (0.0-1.0); EOS # 0.3 10^3/uL (0.0-0.5); EOS % 3.4 % (0.0-3.0); HEMATOCRIT 42.3 % (42.0-52.0); HEMOGLOBIN 14.2 g/dl (13.5-17.5); LYMPH # 1.9 10^3/uL (1.5-5.0); LYMPH % 21.6 % (24.0-44.0); MEAN CORPUSCULAR HEMOGLOBIN 31.1 pg (27.0-33.0); MEAN CORPUSCULAR HGB CONC 33.6 g/dl (32.0-36.5); MEAN CORPUSCULAR VOLUME 92.8 fl (80.0-96.0); MONO # 0.8 10^3/uL (0.0-0.8); MONO % 8.6 % (2.0-8.0); NEUTROPHILS # 5.9 10^3/uL (1.5-8.5); NEUTROPHILS % 65.4 % (36.0-66.0); PLATELET COUNT, AUTOMATED 146 10^3/uL (150-450); RED BLOOD COUNT 4.56 10^6/uL (4.30-6.10); WHITE BLOOD COUNT 8.9 10^3/uL (4.0-10.0)
[2023-11-24 15:33] LABS: ERYTHROCYTE SEDIMENTATION RATE 9 mm/hr (0-20)
[2023-11-24 15:34] LABS: C REACTIVE PROTEIN QUANTITATIV < 0.40 MG/DL (<1.0)
[2023-11-24 15:36] LABS: BLOOD UREA NITROGEN 22 MG/DL (9-23); CALCIUM LEVEL 9.2 MG/DL (8.3-10.6); CARBON DIOXIDE LEVEL 32 MMOL/L (20-31); CHLORIDE LEVEL 109 MMOL/L (98-107); CREATININE FOR GFR 0.95 MG/DL (0.70-1.30); GLOMERULAR FILTRATION RATE > 60.0 (>35); GLUCOSE, FASTING 97 MG/DL (74-106); SODIUM LEVEL 144 MMOL/L (136-145)
[2023-11-24] MEDS ORDERED: ISOVUE-370 76% 100ML VIAL As Ordered ONE (15:37)
[2023-11-24] MEDS ORDERED: TRAM50TA2 PO (17:07)
[2023-11-24] MEDS ORDERED: ANEC4CRE3 TOP (17:07)
[2023-11-24 17:29] VITALS: BP 170/71; TEMP 96.7; O2SAT 98
== END 2023-11-24 17:32 | disposition home or self-care (01) ==
LOC: M ED 12:29
DX: M25.562 Pain in left knee (principal); M25.462 Effusion, left knee; E11.9 Type 2 diabetes mellitus without complications; I10 Essential (primary) hypertension; I25.2 Old myocardial infarction; E78.5 Hyperlipidemia, unspecified; J45.909 Unspecified asthma, uncomplicated; Z86.73 Personal history of transient ischemic attack (TIA), and cerebral infarction without residual deficits; Z95.5 Presence of coronary angioplasty implant and graft; Z79.82 Long term (current) use of aspirin; Z79.899 Other long term (current) drug therapy
CPT/HCPCS: 73564; 73701; 80048; 83605; 85025; 85652; 86140; 87040; 93971; 99284; Q9967

== ENCOUNTER 2024-05-12 06:31 | Day surgery (SDC) | payer MEDICARE, MEDICAID ==
[~2024-05-12] VITALS: Ht 177.8 cm; Wt 92.0 kg
[~2024-05-12 06:31] MED LIST changes: +ACET300T48; +ANEC4CRE3 TOP; +BUPR5DIS3; +CARB25TA31 PO; +CARB25TA9 PO; +PREG50CA3; +QUET50TA4 PO; +TRAM50TA2 PO
[2024-05-12] MEDS ORDERED: propofoL 200 MG/20 ML VIAL As Ordered ONE (06:36)
[2024-05-12] MEDS ORDERED: LIDOCAINE 2% 100MG/5ML SDV (FOR ANES.) As Ordered ONE (06:37)
[2024-05-12] MEDS ORDERED: LR 1,000 ML IV SCH (07:00)
[2024-05-12] MEDS: CYCLOPENTOLATE 1% OPHTH SOLN 2ML BTL OD SCH (07:05)
[2024-05-12] MEDS: TETRACAINE 0.5% OPHTH SOLN 4ML OD SCH (07:05)
[2024-05-12] MEDS: PHENYLEPHRINE 2.5% OPHTH SOL 2ML OD SCH (07:05)
[2024-05-12] MEDS: FLURBIPROFEN 0.03% OPHTH SOLN 2.5 ML OD SCH (07:05)
[2024-05-12] MEDS: LIDOCAINE 1% SDV 5ML VIAL As Ordered ONE (07:41)
[2024-05-12] MEDS: CEFUROXIME 1MG/0.1ML INTRACAMERAL INJ As Ordered ONE (07:41)
[2024-05-12 07:58] VITALS: BP 145/65; TEMP 97.5; O2SAT 96
== END 2024-05-12 08:16 | disposition home or self-care (01) ==
LOC: M SDC 06:31
PROVIDERS: ATTEND Ophthalmology
DX: H25.9 Unspecified age-related cataract (principal); E11.9 Type 2 diabetes mellitus without complications; R07.9 Chest pain, unspecified; I25.2 Old myocardial infarction; Z95.5 Presence of coronary angioplasty implant and graft; Z86.73 Personal history of transient ischemic attack (TIA), and cerebral infarction without residual deficits; Z79.899 Other long term (current) drug therapy
CPT/HCPCS: 66984; J0697; V2632

== ENCOUNTER → 2024-06-17 | Outpatient (CLI) | payer MEDICARE, MEDICAID ==
[2024-06-17 13:43] LABS: BASO # 0.1 10^3/uL (0.0-0.2); BASO % 0.8 % (0.0-1.0); EOS # 0.3 10^3/uL (0.0-0.5); EOS % 4.8 % (0.0-3.0); HEMATOCRIT 39.9 % (42.0-52.0); HEMOGLOBIN 13.1 g/dl (13.5-17.5); LYMPH # 1.7 10^3/uL (1.5-5.0); LYMPH % 26.7 % (24.0-44.0); MEAN CORPUSCULAR HEMOGLOBIN 30.1 pg (27.0-33.0); MEAN CORPUSCULAR HGB CONC 32.8 g/dl (32.0-36.5); MEAN CORPUSCULAR VOLUME 91.7 fl (80.0-96.0); MONO # 0.6 10^3/uL (0.0-0.8); MONO % 9.8 % (2.0-8.0); NEUTROPHILS # 3.8 10^3/uL (1.5-8.5); NEUTROPHILS % 57.6 % (36.0-66.0); PLATELET COUNT, AUTOMATED 132 10^3/uL (150-450); RED BLOOD COUNT 4.35 10^6/uL (4.30-6.10); WHITE BLOOD COUNT 6.5 10^3/uL (4.0-10.0)
[2024-06-17 13:47] LABS: ALBUMIN 3.3 G/DL (3.2-5.2); ALKALINE PHOSPHATASE 80 U/L (40-129); ALT/SGPT 14 U/L (7.0-40); AST/SGOT 18 U/L (<34); BILIRUBIN,TOTAL 0.3 MG/DL (0.3-1.2); BLOOD UREA NITROGEN 22 MG/DL (9-23); CALCIUM LEVEL 9.3 MG/DL (8.3-10.6); CARBON DIOXIDE LEVEL 34 MMOL/L (20-31); CHLORIDE LEVEL 108 MMOL/L (98-107); CHOLESTEROL LEVEL 126 MG/DL (<200); CREATININE FOR GFR 0.73 MG/DL (0.70-1.30); GLOMERULAR FILTRATION RATE > 60.0 (>35); GLUCOSE, FASTING 101 MG/DL (74-106); HDL CHOLESTEROL 48.4 MG/DL (>40); LDL CHOLESTEROL 49.8 MG/DL (<100); NON-HDL-C 77.6 MG/DL; POTASSIUM SERUM 4.9 MMOL/L (3.5-5.1); SODIUM LEVEL 147 MMOL/L (136-145); TOTAL PROTEIN 6.8 G/DL (5.7-8.2); TRIGLYCERIDES LEVEL 139 MG/DL (<150)
[2024-06-17 14:09] LABS: HEMOGLOBIN A1c 5.6 % (4.0-6.0)
== END ==
LOC: M WUC 09:15
PROVIDERS: ATTEND Family Medicine
DX: Z00.00 Encounter for general adult medical examination without abnormal findings (principal); Z79.899 Other long term (current) drug therapy

== ENCOUNTER 2024-07-14 07:18 | Day surgery (SDC) | payer MEDICARE, MEDICAID ==
[~2024-07-14] VITALS: Ht 177.8 cm; Wt 93.4 kg
[~2024-07-14 07:18] MED LIST changes: +LR 1,000 ML IV SCH; +TAMS1CAP17 PO
[2024-07-14] MEDS ORDERED: fentaNYL 100 MCG/2 ML INJECTION As Ordered ONE (07:44)
[2024-07-14] MEDS: FLURBIPROFEN 0.03% OPHTH SOLN 2.5 ML OS SCH (07:52)
[2024-07-14] MEDS: TETRACAINE 0.5% OPHTH SOLN 4ML OS SCH (07:52)
[2024-07-14] MEDS: CYCLOPENTOLATE 1% OPHTH SOLN 2ML BTL OS SCH (07:52)
[2024-07-14] MEDS: PHENYLEPHRINE 2.5% OPHTH SOL 2ML OS SCH (07:52)
[2024-07-14] MEDS ORDERED: MIDAZOLAM INJ 2MG/2ML VIAL As Ordered ONE (08:51)
[2024-07-14] MEDS: LIDOCAINE 1% SDV 5ML VIAL As Ordered ONE (08:54)
[2024-07-14] MEDS: CEFUROXIME 1MG/0.1ML INTRACAMERAL INJ As Ordered ONE (08:54)
[2024-07-14 09:14] VITALS: BP 141/67; TEMP 96.9; O2SAT 97
== END 2024-07-14 09:29 | disposition home or self-care (01) ==
LOC: M SDC 07:18
PROVIDERS: ATTEND Ophthalmology
DX: H25.12 Age-related nuclear cataract, left eye (principal); E11.9 Type 2 diabetes mellitus without complications; I25.2 Old myocardial infarction; Z95.5 Presence of coronary angioplasty implant and graft; M19.90 Unspecified osteoarthritis, unspecified site; Z98.41 Cataract extraction status, right eye; Z79.899 Other long term (current) drug therapy
CPT/HCPCS: 66984; J0697; J2250; J3010; V2632

== ENCOUNTER → 2024-07-30 | Outpatient (REF) | payer MEDICARE, MEDICAID ==
[~2024-07-30] MED LIST changes: -LR 1,000 ML IV SCH
[2024-07-30 13:12] LABS: BASO # 0.1 10^3/uL (0.0-0.2); BASO % 0.9 % (0.0-1.0); EOS # 0.3 10^3/uL (0.0-0.5); EOS % 3.7 % (0.0-3.0); HEMATOCRIT 39.4 % (42.0-52.0); HEMOGLOBIN 12.6 g/dl (13.5-17.5); LYMPH # 1.4 10^3/uL (1.5-5.0); LYMPH % 16.9 % (24.0-44.0); MEAN CORPUSCULAR VOLUME 90.8 fl (80.0-96.0); MONO # 0.7 10^3/uL (0.0-0.8); NEUTROPHILS # 5.7 10^3/uL (1.5-8.5); NEUTROPHILS % 70.3 % (36.0-66.0); PLATELET COUNT, AUTOMATED 128 10^3/uL (150-450); RED BLOOD COUNT 4.34 10^6/uL (4.30-6.10); WHITE BLOOD COUNT 8.1 10^3/uL (4.0-10.0)
[2024-07-30 13:32] LABS: CALCIUM LEVEL 8.9 MG/DL (8.3-10.6); CREATININE FOR GFR 0.89 MG/DL (0.70-1.30); GLOMERULAR FILTRATION RATE 85.6 (>35); POTASSIUM SERUM 4.6 MMOL/L (3.5-5.1)
[2024-07-30 13:33] LABS: PERCENT SATURATION 21.6 % (19.7-50.0)
[2024-07-30 13:35] LABS: FERRITIN 77.2 NG/ML (10.5-307.3)
[2024-07-30 13:36] LABS: FOLATE 12.66 NG/ML (>5.4)
== END ==
LOC: M LABDRAWC 12:26
PROVIDERS: ATTEND Family Medicine
DX: D50.9 Iron deficiency anemia, unspecified (principal); D69.6 Thrombocytopenia, unspecified; E87.0 Hyperosmolality and hypernatremia

== ENCOUNTER → 2024-10-01 | Outpatient (REF) | payer MEDICARE, MEDICAID ==
[2024-10-01 19:11] LABS: PLATELET COUNT, AUTOMATED 159 10^3/uL (150-450)
== END ==
LOC: M LABWUC 17:57
PROVIDERS: ATTEND Nurse Practitioner Family
DX: D69.6 Thrombocytopenia, unspecified (principal)

== ENCOUNTER 2024-11-06 15:00 | Inpatient (IN) | payer MEDICARE, MEDICAID ==
[~2024-11-06] VITALS: Ht 177.8 cm; Wt 88.8 kg
[~2024-11-06 15:00] MED LIST changes: -ACET300T48; +ACET300T48 PO; -PREG50CA3; +PREG50CA3 PO
[2024-11-06 15:43] LABS: BASO # 0.0 10^3/uL (0.0-0.2); BASO % 0.4 % (0.0-1.0); EOS # 0.5 10^3/uL (0.0-0.5); EOS % 6.0 % (0.0-3.0); LYMPH # 0.7 10^3/uL (1.5-5.0); LYMPH % 8.3 % (24.0-44.0); MONO # 1.0 10^3/uL (0.0-0.8); MONO % 11.5 % (2.0-8.0); NEUTROPHILS # 6.1 10^3/uL (1.5-8.5); NEUTROPHILS % 73.3 % (36.0-66.0); PLATELET COUNT, AUTOMATED 129 10^3/uL (150-450)
[2024-11-06 15:55] LABS: ALT/SGPT < 9 U/L (7.0-40); AST/SGOT 29 U/L (<34); CALCIUM LEVEL 8.5 MG/DL (8.3-10.6); CARBON DIOXIDE LEVEL 29 MMOL/L (20-31); CHLORIDE LEVEL 103 MMOL/L (98-107); CK-MB VALUE MASS < 1.0 NG/ML (<3.6); CPK CREATINE PHOSPHOKINASE 87 U/L (46-171); CREATININE FOR GFR 0.95 MG/DL (0.70-1.30); GLOMERULAR FILTRATION RATE 79.9 (>35); POTASSIUM SERUM 4.1 MMOL/L (3.5-5.1); SODIUM LEVEL 143 MMOL/L (136-145)
[2024-11-06] MEDS ORDERED: ISOVUE-370 76% 100 ML VIAL As Ordered ONE (16:43)
[2024-11-06 17:49] LABS: CK-MB VALUE MASS < 1.0 NG/ML (<3.6)
[2024-11-06 17:50] LABS: CPK CREATINE PHOSPHOKINASE 75 U/L (46-171)
[2024-11-06 20:12] LABS: KETONE, URINE AUTO RFX TRACE mg/dL (NEGATIVE); LEUKOCYTE ESTERASE UR AUTO RFX NEGATIVE (NEGATIVE); NITRITE, URINE AUTO RFX NEGATIVE (NEGATIVE); RBC, URINE AUTO RFX 0 /HPF (0-3); SQUAM EPITHELIAL CELL UR AURFX 0 /HPF (0-6); WBC, URINE AUTO RFX 0 /HPF (0-3)
[2024-11-06] MEDS ORDERED: ATOR80TA59 PO (20:53)
[2024-11-06] MEDS ORDERED: BUPR10DI3 TOP (20:53)
[2024-11-06] MEDS ORDERED: ZOLO100T PO (20:53)
[2024-11-06] MEDS ORDERED: CARV3.12 PO (20:53)
[2024-11-06] MEDS ORDERED: ASPI81CH33 PO (20:53)
[2024-11-06] MEDS ORDERED: CLOP75TA2 PO (20:53)
[2024-11-06] MEDS ORDERED: PREG50CA87 PO (21:20)
[2024-11-06] MEDS ORDERED: PANT-23 PO (21:20)
[2024-11-06] MEDS ORDERED: VITA200030 PO (21:23)
[2024-11-06] MEDS ORDERED: B-12100020 PO (21:23)
[2024-11-06] MEDS ORDERED: FERR32TA PO (21:24)
[2024-11-06] MEDS ORDERED: HOME MED LIST COMPLETE! XX SCH (21:30)
[2024-11-06] MEDS ORDERED: NITROGLYCERIN 0.4 MG SUBL TABLET SL PRN (22:00)
[2024-11-06] MEDS: BENZONATATE 100 MG CAPSULE PO PRN (22:06)
[2024-11-06] MEDS: predniSONE 20 MG TAB PO SCH (22:06)
[2024-11-06] MEDS: AZITHROMYCIN 250 MG TABLET PO SCH (22:06)
[2024-11-06] MEDS: ALBUTEROL SULFATE 2.5 MG/0.5 ML INH CONCENTRATE NEB SOLN NEB SCH (22:13)
[2024-11-06] MEDS: SERTRALINE 100 MG TAB PO SCH (22:32)
[2024-11-06] MEDS: TAMSULOSIN 0.4 MG CAP PO SCH (22:32)
[2024-11-06] MEDS: ATORVASTATIN 20 MG TAB PO SCH (22:33)
[2024-11-06] MEDS: DIVALPROEX 250 MG *ER* TAB PO SCH (22:33)
[2024-11-06] MEDS: QUEtiapine FUMARATE 50MG TAB PO SCH (22:40)
[2024-11-06] MEDS: PREGABALIN 50 MG CAP PO SCH (22:40)
[2024-11-06] MEDS: CARBIDOPA/LEVODOPA **ER** 25 MG/100 MG PO SCH (23:10)
[2024-11-07 06:40] LABS: PLATELET COUNT, AUTOMATED 118 10^3/uL (150-450)
[2024-11-07 07:11] LABS: ALT/SGPT 9.0 U/L (7.0-40); AST/SGOT 33.0 U/L (<34); CALCIUM LEVEL 8.5 MG/DL (8.3-10.6); CARBON DIOXIDE LEVEL 30.0 MMOL/L (20-31); CHLORIDE LEVEL 101.0 MMOL/L (98-107); CREATININE FOR GFR 0.78 MG/DL (0.70-1.30); GLOMERULAR FILTRATION RATE 89.0 (>35); POTASSIUM SERUM 4.1 MMOL/L (3.5-5.1); SODIUM LEVEL 142.0 MMOL/L (136-145)
[2024-11-07] MEDS: ENOXAPARIN 40 MG/0.4 ML SYRINGE (J1650 PER 10MG) SC SCH (12:13)
[2024-11-07] MEDS: PREGABALIN 50 MG CAP PO SCH (12:14)
[2024-11-07] MEDS: ASPIRIN 81 MG ENTERIC TABLET PO SCH (12:14)
[2024-11-07] MEDS: CLOPIDOGREL 75 MG TAB PO SCH (12:14)
[2024-11-07] MEDS: PANTOPRAZOLE 40MG TAB PO SCH (12:14)
[2024-11-07] MEDS: VITAMIN D 1,000 INTERNATIONAL UNITS TABLET PO SCH (12:14)
[2024-11-07] MEDS: FUROSEMIDE 40 MG TAB PO SCH (12:15)
[2024-11-07] MEDS: FERROUS GLUCONATE 324 MG TAB PO SCH (12:52)
[2024-11-07] MEDS: CARBIDOPA/LEVODOPA 25 MG/100 MG PO SCH (12:53)
[2024-11-07 14:10] VITALS: BP 136/65; TEMP 98.1; O2SAT 92
[2024-11-07] MEDS: guaiFENesin DM LIQ 10ML UD PO PRN (16:38)
[2024-11-07] MEDS ORDERED: PILL CUTTER 1 EACH XX ONE (17:22)
[2024-11-07 19:41] VITALS: BP 132/58; TEMP 97.9; O2SAT 91
[2024-11-08 02:10] VITALS: O2SAT 84
[2024-11-08 02:16] VITALS: O2SAT 92
[2024-11-08 04:35] VITALS: BP 146/66; TEMP 97.4; O2SAT 92
[2024-11-08 06:47] LABS: PLATELET COUNT, AUTOMATED 126 10^3/uL (150-450)
[2024-11-08 07:06] VITALS: O2SAT 92
[2024-11-08 07:10] LABS: ALT/SGPT 22.0 U/L (7.0-40); AST/SGOT 31.0 U/L (<34); CALCIUM LEVEL 8.5 MG/DL (8.3-10.6); CARBON DIOXIDE LEVEL 33.0 MMOL/L (20-31); CHLORIDE LEVEL 101.0 MMOL/L (98-107); CREATININE FOR GFR 0.78 MG/DL (0.70-1.30); GLOMERULAR FILTRATION RATE 89.0 (>35); POTASSIUM SERUM 3.8 MMOL/L (3.5-5.1); SODIUM LEVEL 144.0 MMOL/L (136-145)
[2024-11-08] MEDS: KCL 20MEQ IN 0.45NS 1000ML 1,000 ML IV SCH (08:53)
[2024-11-08 12:18] VITALS: BP 139/63; TEMP 97.7; O2SAT 93
[2024-11-08 19:41] VITALS: BP 154/70; TEMP 97.9; O2SAT 91
[2024-11-08] MEDS: guaiFENesin ER TABLET 600 MG TAB PO SCH (21:07)
[2024-11-09] VITALS (11 sets, daily range): BP systolic 135–147; BP diastolic 67–71; TEMP 97.7–98.1; O2SAT 78–94
[2024-11-09 06:28] LABS: BASO # 0.0 10^3/uL (0.0-0.2); BASO % 0.6 % (0.0-1.0); EOS # 0.2 10^3/uL (0.0-0.5); EOS % 2.8 % (0.0-3.0); LYMPH # 1.5 10^3/uL (1.5-5.0); LYMPH % 23.5 % (24.0-44.0); MONO # 1.1 10^3/uL (0.0-0.8); MONO % 16.9 % (2.0-8.0); NEUTROPHILS # 3.5 10^3/uL (1.5-8.5); NEUTROPHILS % 55.3 % (36.0-66.0); PLATELET COUNT, AUTOMATED 137 10^3/uL (150-450)
[2024-11-09 06:29] LABS: PLATELET COUNT, AUTOMATED 131 10^3/uL (150-450)
[2024-11-09 06:58] LABS: C REACTIVE PROTEIN QUANTITATIV 2.97 MG/DL (<1.0)
[2024-11-09 07:05] LABS: ALT/SGPT 15 U/L (7.0-40); AST/SGOT 28 U/L (<34); CALCIUM LEVEL 8.0 MG/DL (8.3-10.6); CARBON DIOXIDE LEVEL 33 MMOL/L (20-31); CHLORIDE LEVEL 105 MMOL/L (98-107); CREATININE FOR GFR 0.73 MG/DL (0.70-1.30); GLOMERULAR FILTRATION RATE > 90.0 (>35); POTASSIUM SERUM 3.8 MMOL/L (3.5-5.1); SODIUM LEVEL 147 MMOL/L (136-145)
[2024-11-09] MEDS: ALBUTEROL SULFATE 2.5 MG/0.5 ML INH CONCENTRATE NEB SOLN NEB PRN (10:50)
[2024-11-09] MEDS: ACETAMINOPHEN 325 MG TAB PO PRN (20:48)
[2024-11-10 03:36] VITALS: BP 132/57; TEMP 97.9; O2SAT 91
[2024-11-10 06:06] LABS: PLATELET COUNT, AUTOMATED 145 10^3/uL (150-450)
[2024-11-10 06:37] LABS: C REACTIVE PROTEIN QUANTITATIV 1.82 MG/DL (<1.0)
[2024-11-10 06:39] LABS: ALT/SGPT < 9 U/L (7.0-40); AST/SGOT 28 U/L (<34); CALCIUM LEVEL 8.1 MG/DL (8.3-10.6); CARBON DIOXIDE LEVEL 35 MMOL/L (20-31); CHLORIDE LEVEL 104 MMOL/L (98-107); CREATININE FOR GFR 0.81 MG/DL (0.70-1.30); GLOMERULAR FILTRATION RATE 88.0 (>35); POTASSIUM SERUM 4.0 MMOL/L (3.5-5.1); SODIUM LEVEL 149 MMOL/L (136-145)
[2024-11-10 12:00] VITALS: BP 144/70; TEMP 97.3; O2SAT 91
[2024-11-10 19:41] VITALS: BP 128/67; TEMP 98.1; O2SAT 93
[2024-11-11 03:12] VITALS: BP 133/62; TEMP 97.9; O2SAT 95
[2024-11-11 06:32] LABS: PLATELET COUNT, AUTOMATED 157 10^3/uL (150-450)
[2024-11-11 07:04] LABS: C REACTIVE PROTEIN QUANTITATIV 1.21 MG/DL (<1.0); CALCIUM LEVEL 8.9 MG/DL (8.3-10.6); CARBON DIOXIDE LEVEL 32.0 MMOL/L (20-31); CHLORIDE LEVEL 103.0 MMOL/L (98-107); CREATININE FOR GFR 0.8 MG/DL (0.70-1.30); GLOMERULAR FILTRATION RATE 88.4 (>35); PHOSPHORUS LEVEL 5.6 MG/DL (2.4-5.1); POTASSIUM SERUM 3.7 MMOL/L (3.5-5.1); SODIUM LEVEL 146.0 MMOL/L (136-145)
[2024-11-11 11:46] VITALS: BP 122/58; TEMP 97.9; O2SAT 92
[2024-11-11 18:11] VITALS: BP 121/63
[2024-11-11 21:03] VITALS: BP 124/62; TEMP 97.9; O2SAT 95
[2024-11-12 00:43] VITALS: O2SAT 85
[2024-11-12 00:46] VITALS: O2SAT 91
[2024-11-12 05:35] VITALS: BP 127/58; TEMP 97.7; O2SAT 93
[2024-11-12 06:28] LABS: PLATELET COUNT, AUTOMATED 163 10^3/uL (150-450)
[2024-11-12] MEDS ORDERED: IPRATROPIUM 0.5 MG/ALBUTEROL 2.5 MG INH SOL UD 3 ML NEB PRN (10:45)
[2024-11-12] MEDS: IPRATROPIUM 0.5 MG/ALBUTEROL 2.5 MG INH SOL UD 3 ML NEB SCH (12:00)
[2024-11-12 12:01] VITALS: BP 114/58; TEMP 97.9; O2SAT 95
[2024-11-12 20:03] VITALS: BP 106/60; TEMP 97.7; O2SAT 93
[2024-11-13 01:10] VITALS: O2SAT 88
[2024-11-13 01:15] VITALS: O2SAT 94
[2024-11-13 03:41] VITALS: BP 138/63; TEMP 97.9; O2SAT 95
[2024-11-13 08:23] LABS: BASO # 0.0 10^3/uL (0.0-0.2); BASO % 0.2 % (0.0-1.0); EOS # 0.1 10^3/uL (0.0-0.5); EOS % 0.8 % (0.0-3.0); LYMPH # 1.0 10^3/uL (1.5-5.0); LYMPH % 11.2 % (24.0-44.0); MONO # 0.3 10^3/uL (0.0-0.8); MONO % 3.3 % (2.0-8.0); NEUTROPHILS # 7.4 10^3/uL (1.5-8.5); NEUTROPHILS % 82.8 % (36.0-66.0); PLATELET COUNT, AUTOMATED 147 10^3/uL (150-450)
[2024-11-13 08:50] LABS: ALT/SGPT 13.0 U/L (7.0-40); AST/SGOT 28.0 U/L (<34); CALCIUM LEVEL 8.7 MG/DL (8.3-10.6); CARBON DIOXIDE LEVEL 32.0 MMOL/L (20-31); CHLORIDE LEVEL 99.0 MMOL/L (98-107); CREATININE FOR GFR 0.81 MG/DL (0.70-1.30); GLOMERULAR FILTRATION RATE 88.0 (>35); POTASSIUM SERUM 3.7 MMOL/L (3.5-5.1); SODIUM LEVEL 143.0 MMOL/L (136-145)
[2024-11-13 12:18] VITALS: BP 113/62; TEMP 97.9; O2SAT 94
[2024-11-13 19:51] VITALS: BP 106/63; TEMP 97.9; O2SAT 94
[2024-11-14 02:07] VITALS: O2SAT 85; O2SAT 95
[2024-11-14 04:10] VITALS: BP 115/66; TEMP 97.7; O2SAT 97
[2024-11-14 12:00] VITALS: BP 163/71; TEMP 97.9; O2SAT 95
[2024-11-14 19:42] VITALS: BP 152/68; TEMP 97.9; O2SAT 99
[2024-11-15 03:18] VITALS: BP 142/70; TEMP 97.7; O2SAT 89
[2024-11-15 06:28] LABS: PLATELET COUNT, AUTOMATED 135 10^3/uL (150-450)
[2024-11-15 12:00] VITALS: BP 150/69; TEMP 97.7; O2SAT 95
[2024-11-15] MEDS: IPRATROPIUM 0.5 MG/ALBUTEROL 2.5 MG INH SOL UD 3 ML NEB SCH (15:23)
[2024-11-15 19:53] VITALS: BP 126/68; TEMP 97.9; O2SAT 96
[2024-11-16 03:44] VITALS: BP 126/68; TEMP 97.9; O2SAT 93
[2024-11-16 07:26] VITALS: O2SAT 91
[2024-11-16 12:09] VITALS: BP 159/82; TEMP 98.1; O2SAT 94
[2024-11-16 20:07] VITALS: BP 156/65; TEMP 97.7; O2SAT 97
[2024-11-17 00:41] VITALS: O2SAT 85
[2024-11-17 00:43] VITALS: O2SAT 96
[2024-11-17 05:07] VITALS: BP 137/65; TEMP 97.7; O2SAT 95
[2024-11-17 07:09] LABS: BASO # 0.0 10^3/uL (0.0-0.2); BASO % 0.2 % (0.0-1.0); EOS # 0.2 10^3/uL (0.0-0.5); EOS % 2.1 % (0.0-3.0); LYMPH # 1.8 10^3/uL (1.5-5.0); LYMPH % 16.4 % (24.0-44.0); MONO # 0.6 10^3/uL (0.0-0.8); MONO % 5.3 % (2.0-8.0); NEUTROPHILS # 8.1 10^3/uL (1.5-8.5); NEUTROPHILS % 74.8 % (36.0-66.0); PLATELET COUNT, AUTOMATED 137 10^3/uL (150-450)
[2024-11-17 08:15] LABS: CALCIUM LEVEL 8.5 MG/DL (8.3-10.6); CARBON DIOXIDE LEVEL 32.0 MMOL/L (20-31); CHLORIDE LEVEL 102.0 MMOL/L (98-107); CREATININE FOR GFR 0.77 MG/DL (0.70-1.30); GLOMERULAR FILTRATION RATE 89.4 (>35); POTASSIUM SERUM 3.8 MMOL/L (3.5-5.1); SODIUM LEVEL 144.0 MMOL/L (136-145)
[2024-11-17 12:00] VITALS: BP 146/69; TEMP 97.7; O2SAT 93
[2024-11-17] MEDS ORDERED: guaiFENesin ER TABLET 600 MG TAB PO PRN (13:30)
[2024-11-17 20:00] VITALS: BP 127/56; TEMP 97.5; O2SAT 96
[2024-11-18 04:00] VITALS: BP 142/67; TEMP 97.5; O2SAT 95
[2024-11-18] MEDS: SENNOSIDES/DOCUSATE SODIUM 8.6 MG/50MG TAB PO SCH (09:38)
[2024-11-18] MEDS: BISACODYL 10 MG SUPP PR ONE (09:38)
[2024-11-18] MEDS: MIRALAX *UNIT DOSE* 17 GM PACKET PO SCH (09:38)
[2024-11-18 11:38] LABS: BASO # 0.0 10^3/uL (0.0-0.2); BASO % 0.2 % (0.0-1.0); EOS # 0.0 10^3/uL (0.0-0.5); EOS % 0.3 % (0.0-3.0); LYMPH # 0.7 10^3/uL (1.5-5.0); LYMPH % 6.9 % (24.0-44.0); MONO # 0.4 10^3/uL (0.0-0.8); MONO % 3.6 % (2.0-8.0); NEUTROPHILS # 9.1 10^3/uL (1.5-8.5); NEUTROPHILS % 88.2 % (36.0-66.0); PLATELET COUNT, AUTOMATED 141 10^3/uL (150-450)
[2024-11-18 12:00] VITALS: BP 126/56; TEMP 97.7; O2SAT 97
[2024-11-18 12:10] LABS: CALCIUM LEVEL 8.7 MG/DL (8.3-10.6); CARBON DIOXIDE LEVEL 30.0 MMOL/L (20-31); CHLORIDE LEVEL 99.0 MMOL/L (98-107); CREATININE FOR GFR 0.82 MG/DL (0.70-1.30); GLOMERULAR FILTRATION RATE 87.7 (>35); POTASSIUM SERUM 4.5 MMOL/L (3.5-5.1); SODIUM LEVEL 140.0 MMOL/L (136-145)
[2024-11-18 14:40] VITALS: BP 127/60; TEMP 97.9; O2SAT 99
[2024-11-18 16:09] LABS: CK-MB VALUE MASS 1.0 NG/ML (<3.6)
[2024-11-18 16:10] LABS: CPK CREATINE PHOSPHOKINASE 33.0 U/L (46-171); MB/CK RELATIVE INDEX 3.03 (< OR =4)
[2024-11-18 20:00] VITALS: BP 128/63; TEMP 97.9; O2SAT 96
[2024-11-19 04:00] VITALS: BP 135/61; TEMP 97.7; O2SAT 96
[2024-11-19] MEDS: predniSONE 20 MG TAB PO SCH (10:35)
[2024-11-19 10:37] VITALS: BP 113/57
[2024-11-19] MEDS ORDERED: MIRA33506 PO (11:30)
[2024-11-19] MEDS ORDERED: DOCU8.6T PO (11:30)
[2024-11-19] MEDS ORDERED: IPRA0.00 NEB (11:30)
[2024-11-19] MEDS ORDERED: BENZ-18 PO (11:30)
[2024-11-19] MEDS ORDERED: SYMB16INH INH (11:30)
[2024-11-19] MEDS ORDERED: PRED10TA2 PO (11:30)
[2024-11-19] MEDS ORDERED: MUCI600T31 PO (11:30)
[2024-11-19 12:05] VITALS: BP 113/57; TEMP 97.7; O2SAT 99
== END 2024-11-19 14:08 | DRG 202 ==
LOC: M ED 15:00 → M ED INP 15:01 → OBSVTOIN 11-07 10:33 → M MSPAV 11-07 14:10
PROVIDERS: ADMIT Internal Medicine; ATTEND Internal Medicine Nephrology
PROC: 0CJS8ZZ Inspection of Larynx, Via Natural or Artificial Opening Endoscopic (ICD-10-PCS; principal; 2024-11-12)
DX: J21.8 Acute bronchiolitis due to other specified organisms (principal); J12.2 Parainfluenza virus pneumonia; Z59.12 Inadequate housing utilities; E87.0 Hyperosmolality and hypernatremia; B34.8 Other viral infections of unspecified site; I10 Essential (primary) hypertension; K21.9 Gastro-esophageal reflux disease without esophagitis; Z95.810 Presence of automatic (implantable) cardiac defibrillator; G89.29 Other chronic pain; I65.01 Occlusion and stenosis of right vertebral artery; E78.5 Hyperlipidemia, unspecified; I65.23 Occlusion and stenosis of bilateral carotid arteries; M54.9 Dorsalgia, unspecified; G20.A1 Parkinson's disease without dyskinesia, without mention of fluctuations; I44.0 Atrioventricular block, first degree; R53.1 Weakness; Z95.2 Presence of prosthetic heart valve; I25.10 Atherosclerotic heart disease of native coronary artery without angina pectoris; E11.9 Type 2 diabetes mellitus without complications; D50.9 Iron deficiency anemia, unspecified; N40.0 Benign prostatic hyperplasia without lower urinary tract symptoms; J45.909 Unspecified asthma, uncomplicated; R04.0 Epistaxis; K59.00 Constipation, unspecified; F39 Unspecified mood [affective] disorder; G31.83 Neurocognitive disorder with Lewy bodies; F02.80 Dementia in other diseases classified elsewhere, unspecified severity, without behavioral disturbance, psychotic disturbance, mood disturbance, and anxiety; F41.9 Anxiety disorder, unspecified; Z79.899 Other long term (current) drug therapy; Z79.82 Long term (current) use of aspirin; J33.9 Nasal polyp, unspecified

== ENCOUNTER → 2024-12-23 | Outpatient (REF) | payer MEDICARE, MEDICAID ==
[~2024-12-23] MED LIST changes: +ASPI81CH33 PO; +ATOR80TA59 PO; +B-12100020 PO; +BENZ-18 PO; +BUPR10DI3 TOP; +CARV3.12 PO; +CLOP75TA2 PO; +DOCU8.6T PO; +FERR32TA PO; +IPRA0.00 NEB; +MIRA33506 PO; +MUCI600T31 PO; +PANT-23 PO; +PRED10TA2 PO; +PREG50CA87 PO; +SYMB16INH INH; +VITA200030 PO; +ZOLO100T PO
[2024-12-23 14:40] LABS: PLATELET COUNT, AUTOMATED 136 10^3/uL (150-450)
[2024-12-23 15:07] LABS: VALPROIC ACID (DEPAKOTE) 17.9 UG/ML (50.0-100.0)
[2024-12-23 15:09] LABS: ALT/SGPT 15.0 U/L (7.0-40); AST/SGOT 32.0 U/L (<34); CALCIUM LEVEL 8.7 MG/DL (8.3-10.6); CARBON DIOXIDE LEVEL 33.0 MMOL/L (20-31); CHLORIDE LEVEL 103.0 MMOL/L (98-107); CHOLESTEROL LEVEL 144.0 MG/DL (<200); CHOLESTEROL RISK RATIO 2.4 (<5); CREATININE FOR GFR 0.82 MG/DL (0.70-1.30); GLOMERULAR FILTRATION RATE 87.7 (>35); IRON (FE) 72.0 UG/DL (65-175); LDL CHOLESTEROL 56.8 MG/DL (<100); NON-HDL-C 84.2 MG/DL; POTASSIUM SERUM 4.8 MMOL/L (3.5-5.1); SODIUM LEVEL 144.0 MMOL/L (136-145); TRIGLYCERIDES LEVEL 137.0 MG/DL (<150)
[2024-12-23 15:11] LABS: VITAMIN B12 LEVEL 688.0 PG/ML (211-911)
[2024-12-23 15:13] LABS: ESTIMATED AVERAGE GLUCOSE 137.0 MG/DL (60-110)
== END ==
LOC: SKLAB3 07:00
PROVIDERS: ATTEND Family Medicine
DX: D64.9 Anemia, unspecified (principal); E78.5 Hyperlipidemia, unspecified; E11.9 Type 2 diabetes mellitus without complications; I10 Essential (primary) hypertension; G40.909 Epilepsy, unspecified, not intractable, without status epilepticus; Z79.899 Other long term (current) drug therapy

== ENCOUNTER → 2025-01-01 | Outpatient (CLI) | payer MEDICARE, MEDICAID | LOC: M PLAIMG 08:57 | PROVIDERS: ATTEND Otolaryngology | DX: J32.2 Chronic ethmoidal sinusitis (principal); J32.3 Chronic sphenoidal sinusitis ==

== ENCOUNTER → 2025-01-10 | Outpatient (REF) | payer MEDICARE, MEDICAID ==
[~2025-01-10] MED LIST changes: +MELA3TAB29 PO; +METF-839 PO; +SENN-23 PO
== END ==
LOC: M RAD 15:29
PROVIDERS: ATTEND Nurse Practitioner Adult Health
DX: M25.561 Pain in right knee (principal); M54.2 Cervicalgia; M17.11 Unilateral primary osteoarthritis, right knee; I70.201 Unspecified atherosclerosis of native arteries of extremities, right leg

== ENCOUNTER 2025-01-21 13:46 | Emergency (ER) | payer MEDICAID, MEDICARE ==
[~2025-01-21] VITALS: Ht 177.8 cm; Wt 95.5 kg
[~2025-01-21 13:46] MED LIST changes: -MELA3TAB29 PO; -METF-839 PO; -SENN-23 PO
[2025-01-21 14:36] LABS: BASO # 0.0 10^3/uL (0.0-0.2); BASO % 0.5 % (0.0-1.0); EOS # 0.2 10^3/uL (0.0-0.5); EOS % 3.0 % (0.0-3.0); LYMPH # 0.8 10^3/uL (1.5-5.0); LYMPH % 11.4 % (24.0-44.0); MONO # 0.6 10^3/uL (0.0-0.8); MONO % 8.4 % (2.0-8.0); NEUTROPHILS # 5.6 10^3/uL (1.5-8.5); NEUTROPHILS % 76.4 % (36.0-66.0); PLATELET COUNT, AUTOMATED 136 10^3/uL (150-450)
[2025-01-21 15:02] LABS: CK-MB VALUE MASS < 1.0 NG/ML (<3.6)
[2025-01-21 15:07] LABS: ALT/SGPT 23 U/L (7.0-40); AST/SGOT 31 U/L (<34); CALCIUM LEVEL 9.1 MG/DL (8.3-10.6); CARBON DIOXIDE LEVEL 28 MMOL/L (20-31); CHLORIDE LEVEL 102 MMOL/L (98-107); CPK CREATINE PHOSPHOKINASE 40 U/L (46-171); CREATININE FOR GFR 0.78 MG/DL (0.70-1.30); GLOMERULAR FILTRATION RATE 89.0 (>35); POTASSIUM SERUM 4.2 MMOL/L (3.5-5.1); SODIUM LEVEL 141 MMOL/L (136-145)
[2025-01-21 15:53] LABS: CK-MB VALUE MASS < 1.0 NG/ML (<3.6)
[2025-01-21 15:54] LABS: CPK CREATINE PHOSPHOKINASE 43 U/L (46-171)
[2025-01-21] MEDS ORDERED: ISOVUE-370 76% 100 ML VIAL As Ordered ONE (16:55)
[2025-01-21] MEDS ORDERED: SENN-23 PO (16:55)
[2025-01-21] MEDS ORDERED: MELA3TAB29 PO (16:55)
[2025-01-21] MEDS ORDERED: METF-839 PO (16:55)
[2025-01-21] MEDS ORDERED: HOME MED LIST COMPLETE! XX SCH (17:00)
[2025-01-21 20:03] VITALS: BP 166/73; TEMP 97; O2SAT 95
== END 2025-01-21 21:04 | disposition home or self-care (01) ==
LOC: M ED 13:46
DX: R06.02 Shortness of breath (principal); I25.10 Atherosclerotic heart disease of native coronary artery without angina pectoris; E11.9 Type 2 diabetes mellitus without complications; I10 Essential (primary) hypertension; K21.9 Gastro-esophageal reflux disease without esophagitis; N40.0 Benign prostatic hyperplasia without lower urinary tract symptoms; E78.5 Hyperlipidemia, unspecified; G20.C Parkinsonism, unspecified; Z98.61 Coronary angioplasty status; Z79.82 Long term (current) use of aspirin; Z79.899 Other long term (current) drug therapy
CPT/HCPCS: 71045; 71275; 74177; 80048; 80076; 82550; 82553; 83880; 84145; 84443; 84484; 85025; 87486; 87581; 87633; 87798; 93005; 93041; 94760; 99285; Q9967

== ENCOUNTER → 2025-03-17 | Outpatient (REF) | payer MEDICARE ==
[~2025-03-17] MED LIST changes: +BUDE10.2; +BUSP5TA PO; -DOCU8.6T PO; +LACT10SO94 PO; +MELA3TAB29 PO; +METF-839 PO; +METH-1165 PO; +SENN-208 PO; +SENN-23 PO
[2025-03-17 09:47] LABS: ESTIMATED AVERAGE GLUCOSE 131.0 MG/DL (60-110)
== END ==
LOC: SKLAB3 07:00
PROVIDERS: ATTEND Family Medicine
DX: E11.9 Type 2 diabetes mellitus without complications (principal)

== ENCOUNTER → 2025-03-25 | Outpatient (REF) | payer MEDICARE ==
[2025-03-25 08:39] LABS: PLATELET COUNT, AUTOMATED 101 10^3/uL (150-450)
[2025-03-25 09:07] LABS: CALCIUM LEVEL 8.4 MG/DL (8.3-10.6); CARBON DIOXIDE LEVEL 32.0 MMOL/L (20-31); CHLORIDE LEVEL 100.0 MMOL/L (98-107); CREATININE FOR GFR 0.81 MG/DL (0.70-1.30); GLOMERULAR FILTRATION RATE 87.5 (>35); POTASSIUM SERUM 3.9 MMOL/L (3.5-5.1); SODIUM LEVEL 143.0 MMOL/L (136-145)
== END ==
LOC: SKLAB5 07:18
PROVIDERS: ATTEND Family Medicine
DX: R06.02 Shortness of breath (principal); R07.9 Chest pain, unspecified